=== PATIENT | female | born 1955 | race Caucasian/White ===

== ENCOUNTER → 2020-02-25 13:35 | Outpatient (CLI) | payer OTHER, SELFPAY ==
--- NOTE | ~2020-02-25 | MM_ITS ---
EXAMINATION: MM screening ирина BI w christian HISTORY: Screening mammogram TECHNIQUE: Craniocaudal and mediolateral oblique 3-D tomosynthesis images were obtained and synthetic 2-D images were generated. CAD analysis was submitted and interpreted. COMPARISON: Comparison to multiple prior studies sequentially, with oldest reviewed study dated 04/2015. BREAST PARENCHYMAL COMPOSITION: There are scattered areas of fibroglandular density. FINDINGS: There is no evidence of suspicious mass, calcification, or architectural distortion to sugg est malignancy in either breast. There has been no suspicious interval change. IMPRESSION: 1. No mammographic evidence of malignancy. 2. Recommend routine screening mammography in one year. BI-RADS Category 1: Negative Reviewed, dictated and finalized at location D.
== END ==
PROVIDERS: PCP Internal Medicine; Visit Provider Internal Medicine
DX: Z12.31 Encounter for screening mammogram for malignant neoplasm of breast (principal)
CPT/HCPCS: 77063; 77067

== ENCOUNTER → 2020-12-06 03:07 | Outpatient (CLI) | payer OTHER, SELFPAY ==
[2020-12-06 19:42] LABS: SARS-CoV-2 RNA PCR Negative
== END ==
PROVIDERS: PCP Internal Medicine; Visit Provider Surgery
DX: Z01.812 Encounter for preprocedural laboratory examination (principal); Z20.822 Contact with and (suspected) exposure to COVID-19
CPT/HCPCS: C9803; U0003; U0005

== ENCOUNTER 2020-12-08 11:23 | Outpatient (CLI) | payer OTHER, SELFPAY ==
--- NOTE | 2020-12-08 11:11 | ECG_ITS ---
Measurements Intervals [place] Rate: 79 P: -12 OK: 206 QRS: 15 QRSD: 81 T: 30 QT: 346 QTc: 397 Interpretive Statements SINUS RHYTHM WITH FIRST DEGREE AV BLOCK DELAYED PRECORDIAL R/S TRANSITION BASELINE ARTIFACT- I, II, III, AVR, AVL, AVF ABNORMAL ECG Electronically Signed On 12-08-2020 12:14:48 CDT by Carlos Schreiber D.O.
[2020-12-08 11:50] LABS: INR 1.3
== END 2020-12-08 11:24 | disposition home or self-care (01) ==
PROVIDERS: PCP Internal Medicine; Visit Provider Surgery
DX: C53.9 Malignant neoplasm of cervix uteri, unspecified (principal); E78.2 Mixed hyperlipidemia; I10 Essential (primary) hypertension; Z01.818 Encounter for other preprocedural examination; I44.0 Atrioventricular block, first degree
CPT/HCPCS: 36415; 85610; 85730; 93005

== ENCOUNTER 2020-12-09 01:24 | Day surgery (SDC) | payer OTHER, SELFPAY ==
[2020-12-03 08:23] VITALS: BMI 35.3
--- NOTE | ~2020-12-09 | XR_ITS ---
EXAMINATION: XR fl guide central line place DATE: 12/09/2020 15:06 INDICATION: Port placement. TECHNIQUE: A single intraoperative fluoroscopic view of the chest was obtained. I was not present. Fl uoroscopy exposure time was 45 seconds. COMPARISON: Chest CT 09/24/2017 FINDINGS: There is a left subclavian port with tip in superior vena cava. There is displacement of th e catheter between the clavicle and first rib. IMPRESSION: 1. Port tip in superior vena cava. Displacement of the catheter between the clavicle and first rib is a sign of increased risk of catheter fracture (pinch-off syndrome). Reviewed, dictated and finalized at location A. IMPRESSION: 1. Port tip in superior vena cava. Displacement of the catheter between the cla vicle and first rib is a sign of increased risk of catheter fracture (pinch-off syndrome).
--- NOTE | ~2020-12-09 | XR_ITS ---
EXAMINATION: XR chest port-a-cath/central DATE: 12/09/2020 15:27 INDICATION: Port placement. TECHNIQUE: A single frontal view of the chest was obtained. COMPARISON: Chest 2 views 08/13/2017, chest CT 09/24/2017 FINDINGS: There is mild atelectasis in right mid and lower lung zones. No pleural effusion or pneumot horax. The heart size is normal. There is a left subclavian port with tip in superior vena cava. Ther e is displacement of the catheter between the clavicle and first rib. IMPRESSION: 1. Port tip in the superior vena cava. Displacement of the catheter between the first and second rib is a sign of increased risk of catheter fracture (pinch-off syndrome). Reviewed, dictated and finalized at location A. IMPRESSION: 1. Port tip in the superior vena cava. Displacement of the catheter between the first and second rib is a sign of increased risk of catheter fracture (pinch-o ff syndrome).
[2020-12-09 11:44] VITALS: BP 107/49; PULSE 73; RESP 14; TEMP 38; O2SAT 98
--- NOTE | 2020-12-09 12:02 | PM.IMHP ---
H&P: HPI History of Present Illness Date/Time: 12/09/20 12:02 Pt is a 65 y/o F currently undergoing treatment for metastatic cervical cancer. Pt presents now for port placement. Pt denies any previous central venous catheterization. Pt is right handed. Chief Complaint: cervical cancer Review of Systems Review of Systems: All systems reviewed & are unremarkable except as noted in HPI and below PMFSH Family History Family History Mother Family history of lung cancer Sibling Patient's sister is Social History Social History Smoking status: Never smoker Second hand tobacco smoke exposure: No Alcohol intake: current Substance use: never Substance use type: does not use Gender identity (if verbalized by the patient): Female Spiritual care concerns: No Meds Home Medications and Allergies Home Medications Medication Instructions Recorded Confirmed Type blood sugar diagnostic #100 each 07/23/19 12/07/20 Rx metformin 500 mg tablet 500 mg PO BID #180 tablet 11/17/19 12/09/20 Rx atorvastatin 10 mg tablet 10 mg PO DAILY #90 tablet 01/20/20 12/09/20 Rx atenolol 100 mg tablet 100 mg PO DAILY #90 tablet 02/18/20 12/09/20 Rx paroxetine HCl 30 mg tablet 30 mg PO DAILY #90 tablet 06/02/20 12/09/20 Rx losartan 100 mg tablet 100 mg PO DAILY #90 tablet 11/09/20 12/09/20 Rx trazodone 100 mg PO HS PRN 12/03/20 12/09/20 History loperamide [Imodium] 2 mg PO Q4H PRN 12/07/20 12/09/20 History Adult One Daily Multivitamin 1 tablet PO DAILY 12/09/20 12/09/20 History Allergies Allergy/AdvReac Type Severity Reaction Status Date / Time thimerosal Allergy Intermediate urticaria Verified 12/09/20 11:48 Exam Const: General: cooperative, comfortable, no acute distress and ill appearing Nutritional Appearance: obese Orientation/consciousness: patient oriented x3 Limitations: no limitations Chest: Chest palpation & inspection: normal inspection of the chest Resp: Effort & Inspection: normal respiratory effort Auscultation: clear to auscultation bilaterally Cardio: Rate: regular rate Rhythm: regular rhythm GI: Inspection: normal to inspection GI Palp: Yes Soft to palpation and No Tenderness to palpation present (GI) Assessment and Plan Assessment and plan (1) Cervical cancer: Code(s): C53.9 - Malignant neoplasm of cervix uteri, unspecified Status: Acute Assessment and Plan: will setup for placement of VAD in OR
--- NOTE | 2020-12-09 12:02 | SUR.PREOP ---
dr simon aware of elevated temp 100.4,talked with pt no symptoms,to proceed with procedure.
--- NOTE | 2020-12-09 12:04 | WPDHPUPDATE1 ---
History and Physical Update Update Date/Time: 12/09/20 12:04 History and Physical has been reviewed, including an updated exam of the patient. There are NO changes in the patient's condition. Risks, benefits, and alternatives have been discussed and questions answered. Patient agrees to proceed with procedure.
[2020-12-09 12:24] LABS: Glucose Point of Care 134 (65-105)
[2020-12-09] MEDS: LACTATED RINGERS 1,000 ML 30 ML IV CONT (12:34)
[2020-12-09] MEDS: KETOROLAC 15 MG/ML VIAL (*BKC) IV PUSH (12:36)
[2020-12-09 12:41] LABS: Sodium 127 mmol/L (137-145)
[2020-12-09 12:51] LABS: INR 1.3; Prothrombin Time 16.7 Seconds (11.1-14.7)
--- NOTE | 2020-12-09 12:53 | WPDANESEPPF ---
Anes - Initial Pre Proc Eval Procedure: Operation Date: 12/09/20 13:30 Proposed Procedures p Insertion Purvi Cath - Kymberly Cox MD Date/Time: 12/09/20 12:53 Surgeon: Kymberly Cox MD Pre Op Diagnosis: malignant neoplasm of cervix Patient Data Age: 65 Gender: F Height: 5 ft 6 in Weight: 99.3 kg Allergies Allergy/AdvReac Type Severity Reaction Status Date / Time thimerosal Allergy Intermediate urticaria Verified 12/09/20 11:48 Home Medications Medication Instructions Recorded Confirmed Type blood sugar diagnostic #100 each 07/23/19 12/07/20 Rx metformin 500 mg tablet 500 mg PO BID #180 tablet 11/17/19 12/09/20 Rx atorvastatin 10 mg tablet 10 mg PO DAILY #90 tablet 01/20/20 12/09/20 Rx atenolol 100 mg tablet 100 mg PO DAILY #90 tablet 02/18/20 12/09/20 Rx paroxetine HCl 30 mg tablet 30 mg PO DAILY #90 tablet 06/02/20 12/09/20 Rx losartan 100 mg tablet 100 mg PO DAILY #90 tablet 11/09/20 12/09/20 Rx trazodone 100 mg PO HS PRN 12/03/20 12/09/20 History loperamide [Imodium] 2 mg PO Q4H PRN 12/07/20 12/09/20 History Adult One Daily Multivitamin 1 tablet PO DAILY 12/09/20 12/09/20 History Laboratory Tests 12/09/20 12/09/20 12/09/20 12:08 12:08 12:22 PT 16.7 Seconds H Seconds (11.1-14.7) INR 1.3 Sodium 127 mmol/L L mmol/L (137-145) POC Capillary Glucose 134 mg/dl H mg/dl (65-105) Patient hx anesthesia problems: none Family hx anesthesia problems: none PMFSH Family History Family History Mother Family history of lung cancer Sibling Patient's sister is Social History Social History Smoking status: Never smoker Second hand tobacco smoke exposure: No Alcohol intake: current Substance use: never Substance use type: does not use Gender identity (if verbalized by the patient): Female Spiritual care concerns: No Anes - Eval Final PreProcedure Day of Procedure 12/09/20 12:53 Patient weight: obese Heart: regular rate and rhythm Lungs: clear to auscultation Airway: Mallampati scale class II Neurological: alert and oriented Last oral intake: >/= 8 hours ASA classification: III Emergent: no Anesthetic plan: proceed Anesthesia type and monitoring: general GIVS and standard monitoring Informed Consent: The patient's anesthetic plan and its attendant risks and benefits were discussed with the patient/family/POA. Questions were solicited and answers provided to the satisfaction of the patient/family/POA.
[2020-12-09] MEDS: ceFAZolin 2 GM/D5W 50 ML 2 GM/50 ML BAG IVPB (14:29)
[2020-12-09] MEDS: HEPARIN SODIUM 5,000 UNITS/ML VIAL 5000 UNITS IRRIGATION (15:00)
[2020-12-09] MEDS: BUPIVACAINE/EPINEPHRINE 0.5% 30 ML VIAL INFILTRATE (15:00)
--- NOTE | 2020-12-09 15:11 | PM.PROC ---
Procedure Note - Detailed Date of procedure: 12/09/20 Pre-op diagnosis: malignant neoplasm of cervix Post-op diagnosis: same Procedure performed: placement of left subclavian venous access device under fluroscopic guidance Description of procedure: Patient was brought into the operating room and placed in the supine position. After adequate induction of mac anesthesia, the patient was prepped and draped in normal sterile fashion. Time-out was then done to verify the patient's identity, as well as the procedure being performed. I began by making a small incision in the left chest, I then gained access into the left subclavian vein with an 18 gauge needle. I then placed the guidewire into the vein and confirmed placement via fluoroscopic guidance. I then locally anesthetized the area in the left chest. I then enlarged the incision around the guidewire including making a subcutaneous pocket inferiorly to allow placement of the port itself. I then placed a dilating sheath over the guidewire into the left subclavian vein via sterile Seldinger technique. This was once again done and confirmed via fluoroscopic guidance. I then removed the dilator and the guidewire, now just leaving the sheath in the vein. I then fed the previously flushed catheter into the left subclavian vein under fluoroscopic guidance. At approximately 20 cm, the catheter was noted to be near the atrial caval junction. I then peeled away the sheath, now just leaving the catheter in the vein. I then was able to easily draw and flush from the catheter. The catheter was cut to fit and attached to the port itself. The port was placed into the previously made subcutaneous pocket and sutured in with 0 Ethibond suture. Final fluoroscopic view showed the termination of the catheter at the atrial caval junction with a nice smooth curvature back to the port itself. I was able to gain access to the port with a Mendoza needle and was able to easily draw and flush from the port. I then flushed 4 cc of a final heparin flush into the port. The incision was closed with 3 0 Vicryl suture in the subcutaneous tissue and the skin was closed with 4 O Monocryl subcuticular suture. Dermabond was then placed on wound. The patient tolerated the procedure well and will be sent to the recovery room in stable condition. Implants: L SCV VAD Anesthesia: MAC and local Surgeon: Kymberly Cox MD Estimated blood loss (mL): 5 Drains: No Packing: No Pathology: none sent Complications: No immediate complications Condition: stable Disposition: PACU Findings: placement of L SCV VAD via 1st stick
[2020-12-09 15:14] VITALS: BP 87/47; PULSE 77; RESP 16; O2SAT 97
[2020-12-09 15:31] LABS: Glucose Point of Care 119 (65-105)
--- NOTE | 2020-12-09 15:36 | SUR.PHASEII ---
Notified Dr. Cox of chest xray. Per Dr. Cox patient is able to eat/drink.
[2020-12-09 15:44] VITALS: BP 94/51; PULSE 72; RESP 18; O2SAT 100
[2020-12-09 16:14] VITALS: BP 96/52; PULSE 71; RESP 18
== END 2020-12-09 16:27 | disposition home or self-care (01) ==
PROVIDERS: Anesthesiology; PCP Internal Medicine; Visit Provider Surgery
PROC: (CPT 36561; principal; 2020-12-09 13:30)
DX: C53.9 Malignant neoplasm of cervix uteri, unspecified (principal); Z79.84 Long term (current) use of oral hypoglycemic drugs; E66.9 Obesity, unspecified; Z68.34 Body mass index [BMI] 34.0-34.9, adult
CPT/HCPCS: 36561; 36415; 77001; 82948; 84295; 85610; 85730; 93005; C1788; C9803; J0690; J1644; J1885; J2250; J2370; J2704; J3010; J7030; J7120; U0003; U0005

== ENCOUNTER 2020-12-11 06:20 | Inpatient (IN) | payer OTHER, SELFPAY ==
[2020-12-11] VITALS (28 sets, daily range): BP systolic 93–147; BP diastolic 53–98; PULSE 64–110; RESP 13–22; TEMP 36.1–38.4; O2SAT 88–99; BMI 34.0
--- NOTE | ~2020-12-11 | XR_ITS ---
EXAMINATION: XR nephrostomy tube change DATE: 12/22/2020 10:48 INDICATION: Right hydronephrosis. TECHNIQUE: The procedure including the risks, benefits, and alternatives was discussed with the patie nt. Risks discussed included bleeding and infection. The patient understood the risks and benefits an d agreed to proceed. The patient was confirmed to be receiving appropriate antibiotic coverage. The skin overlying the right kidney was prepped and draped in usual sterile fashion. Anesthetic was admi nistered with 1% lidocaine subcutaneously. The existing right nephrostomy tube was injected with cont rast and then cut and exchanged over a wire for a new 10 Cambodian pigtail catheter under fluoroscopic g uidance. The catheter was stitched to the skin. A dressing was applied. There were no immediate comp lications. FINDINGS: Fluoroscopy images demonstrate the new nephrostomy tube in the renal pelvis. IMPRESSION: 1. Successful fluoroscopy guided right nephrostomy tube exchange. Reviewed, dictated and finalized at location A.
--- NOTE | ~2020-12-11 | CT_ITS ---
EXAMINATION: CT abdomen pelvis wo con DATE: 12/11/2020 18:09 INDICATION: Fever. Right nephrostomy tube. Cervical cancer with metastases. TECHNIQUE: Computed tomography (CT) of the abdomen and pelvis was performed without intravenous contr ast. Automated exposure control and iterative reconstruction technique were employed. Exam dose: 124 1.84 mGy-cm total exam DLP. COMPARISON: 12/28/2009 renal scan FINDINGS: There are multiple bilateral pulmonary masses, measuring up to 3 cm on the left, 1.5 cm on the right, likely due to pulmonary metastases. Suggestion of subtle 12 mm hypoattenuating lesion at the lower tip of the right hepatic lobe. Conside r CT examination with IV contrast material for better definition of any possible visceral mass lesion s. There is splenomegaly, spleen measuring approximately 14 cm vertical dimension. There is an approximately 3.2 cm hypoattenuating lesion of the lateral aspect of the mid right kidney with mean attenuation of 10 Hounsfield units, not evident on 12/2019. Further evaluation by CT exami nation with intravenous contrast material is recommended. A right nephrostomy catheter placed via the lower pole the right kidney. There is interval asymmetric right sided soft tissue mass density in the right uterine cervical area, extending into the right adnexal area, measuring greater than 5 cm transverse, up to 4 cm or greater AP dimension, with adjacent thickening of the right posterior right posterolateral urinary bladder w all. There is likely invasion of the distal right ureter as well, resulting in right ureteral obstruc tion and the need for the existing right nephrostomy catheter. There is prominent asymmetric right pe rinephric fat soft tissue infiltration and asymmetric thickening of the right anterior and posterior pararenal fascia. The findings suggest malignant mass, presumably clinically reported cervical cancer, with suspected b ladder and right ureteral invasion. Mild air collection in the bladder lumen. Minimal colonic diverticulosis; no CT evidence of diverticulitis. Normal appendix. No bowel obstruction, bowel wall thickening, pneumatosis or intraperitoneal free air . Very small fat-containing umbilical hernia. Bilateral fat-containing inguinal hernias. IMPRESSION: Large right cervical and adnexal soft tissue mass with bladder wall in right ureteral in vasion, right ureteral obstruction secondary to right hydronephrosis. Extensive pulmonary metastatic disease Right nephrostomy catheter for obstructed right kidney secondary to malignant right ureteral obstruct ion 12 mm suspected lower right hepatic mass Splenomegaly Reviewed, dictated and finalized at Location A. Fever. Right nephrostomy tube. Cervical cancer with m etastases. Reviewed, dictated and finalized at location A. IMPRESSION: Large right cervical and adnexal soft tissue mass with bladder wal l in right ureteral invasion, right ureteral obstruction secondary to right hyd ronephrosis. Extensive pulmonary metastatic disease Right nephrostomy catheter for obstructed right kidney secondary to malignant r ight ureteral obstruction 12 mm suspected lower right hepatic mass Splenomegaly
--- NOTE | ~2020-12-11 | US_ITS ---
EXAMINATION: US renal BI DATE: 12/18/2020 12:44 INDICATION: Hydronephrosis. Nephrostomy tube dysfunction. TECHNIQUE: Multiple ultrasound grayscale images of the kidneys were obtained. COMPARISON: CT abdomen and pelvis 12/11/2020 FINDINGS: The right kidney measures 11.4 x 6.5 x 8.0 cm. The left kidney measures 12.2 x 6.8 x 7.1 cm. The kidn eys demonstrate normal parenchymal echogenicity. There is a 4.1 cm cyst in right kidney. There is mil d right hydronephrosis. The bladder is normal. IMPRESSION: 1. Mild right hydronephrosis. Reviewed, dictated and finalized at location A.
--- NOTE | ~2020-12-11 | XR_ITS ---
EXAMINATION: XR chest 1V portable DATE: 12/11/2020 07:50 INDICATION: Fever. TECHNIQUE: frontal view of the chest was obtained. COMPARISON: Chest radiograph dated 12/09/2020 FINDINGS: Again seen is a left subclavian central venous port catheter with distal tip at the cephalad superior vena cava. Unchanged undulation in the course of the catheter where it passes between the left first rib and clavicle which as previously noted predispose towards catheter fracture and embolization (pi nch off syndrome). 3 cm nodule at the medial left lower lung zone. Suggestion of a couple additional smaller more subtle nodules in the right lower and left mid lung zones which raises concern for metas tatic disease. No evident pneumonia, pulmonary edema, pleural effusion or pneumothorax. The cardiomed iastinal silhouette is normal. Moderate osteoarthritis at the bilateral glenohumeral joints. There ar e bridging osteophytes at multiple levels in the spine, consistent with diffuse idiopathic skeletal h yperostosis (DISH). IMPRESSION: 1. A few bilateral pulmonary nodules concerning for metastatic disease. If not previously confirmed b y chest CT, this would be recommended. 2. Left subclavian central venous port catheter with tip in the superior vena cava and with undulatio n the course where it passes between the left first rib and clavicle which can predispose towards cat heter fracture and embolization (pinch off syndrome). Reviewed, dictated and finalized at location A. IMPRESSION: 1. A few bilateral pulmonary nodules concerning for metastatic disease. If not previously confirmed by chest CT, this would be recommended. 2. Left subclavian central venous port catheter with tip in the superior vena c litzy and with undulation the course where it passes between the left first rib a nd clavicle which can predispose towards catheter fracture and embolization (pi nch off syndrome).
--- NOTE | ~2020-12-11 | XR_ITS ---
EXAMINATION: XR chest 1V portable DATE: 12/12/2020 05:16 INDICATION: Fever TECHNIQUE: frontal view of the chest was obtained. COMPARISON: Chest radiograph dated 12/11/2020 FINDINGS: Unchanged left subclavian central venous port catheter with distal tip in the cephalad superior vena cava and with undulation in the course of the catheter where it passes between the left first rib and clavicle. Again seen are a few several bilateral pulmonary nodules consistent with metastatic disease. No other airspace opacities, pulmonary edema, pleural effusion or pneumothorax. Heart size is normal. Several convex contour to the AP window suspicious for metastatic mediastinal lymphadenopathy. There are hai dging osteophytes at multiple levels in the spine, consistent with diffuse idiopathic skeletal hypero stosis (DISH). IMPRESSION: 1. Several bilateral pulmonary nodules suspicious for metastatic disease. 2. Slight bulging to the AP window also raising concern for additional metastatic mediastinal lymphad enopathy. Reviewed, dictated and finalized at location A. IMPRESSION: 1. Several bilateral pulmonary nodules suspicious for metastatic disease. 2. Slight bulging to the AP window also raising concern for additional metastat ic mediastinal lymphadenopathy.
--- NOTE | ~2020-12-11 | XR_ITS ---
EXAMINATION: XR sacrum coccyx min 2V, XR lumbar spine 2-3V EXAM DATE: 12/24/2020 15:20 INDICATION: Fall, low back pain . Initial encounter. TECHNIQUE: Lumber spine frontal, lateral, lateral L5-S1 projections for interpretation. Sacral fronta l, inlet, lateral projections. Comparison is made to prior examination from 12/24/2020. FINDINGS: There is a right-sided nephrostomy tube. Sacrum, sacroiliac joints, sacral arcuate lines a re intact. There are no acute fractures identified. Mild lumbar levoscoliosis. Mild diffuse lumbar di sc disease. Moderate arthropathy. Paraspinal soft tissue is unremarkable. IMPRESSION: 1. No acute findings. 2. Lumbar spondylosis. Reviewed, dictated and finalized at location A. IMPRESSION: 1. No acute findings. 2. Lumbar spondylosis.
--- NOTE | 2020-12-11 06:32 | ECG_ITS ---
Measurements Intervals [place] Rate: 67 P: 25 VA: 219 QRS: 27 QRSD: 90 T: 31 QT: 411 QTc: 436 Interpretive Statements SINUS RHYTHM WITH FIRST DEGREE AV BLOCK LOW QRS VOLTAGE IN PRECORDIAL LEADS BASELINE ARTIFACT- II, III, AVF, V1, V3-V6 ABNORMAL ECG Electronically Signed On 12-11-2020 8:47:56 CDT by Carlos Schreiber D.O.
[2020-12-11] MEDS: SODIUM CHLORIDE 0.9% IV 1,000 ML 999 ML IV CONT ×2 (06:41→11:24)
[2020-12-11 07:16] LABS: Basophils Percent Auto 0.9 % (0.2-1.2); Eosinophils Percent Auto 1.4 % (0-4.4); Immature Granulocyte Absolute 0.03 K/mm3 (0.00-0.031); Immature Granulocyte Percent A 1.4 % (0-0.5); Lymphocytes Absolute Auto 0.03 K/mm3 (0.9-3.2); Lymphocytes Percent Auto 1.4 % (18.3-44.2); Mean Corpuscular HGB Conc 32.7 g/dl (32-36); Mean Corpuscular Hemoglobin 28.3 pg (26-34); Mean Corpuscular Volume 86.5 fl (80-100); Mean Platelet Volume 10.4 fl (7.4-10.4); Monocytes Absolute Auto 0.2 K/mm3 (0.1-0.6); Monocytes Percent Auto 11.4 % (2.6-8.5); Neutrophils Absolute Auto 1.8 K/mm3 (1.3-6.7); Neutrophils Percent Auto 83.5 % (45.5-73.1); Platelet Count Result 80 k/mm3 (150-375); Red Blood Count 2.37 M/mm3 (4.2-5.4); Red Cell Distribution Width 13.9 % (11.5-14.5); White Blood Count 2.1 K/mm3 (4.5-10.0)
[2020-12-11 07:24] LABS: Lactic Acid Reflex 0.9 mmol/L (0.7-2.1)
[2020-12-11 07:25] LABS: Add Urine Microscopic? YES; Appearance Urine Turbid (Clear); Bilirubin Urine Negative (Negative); Blood Urine 1+ (Negative); Color Urine Yellow (Yellow); Glucose Urine UA Negative (Negative); Ketones Urine Negative (Negative); Leukocyte Esterase Ur 2+ LEU/UL (Negative); Nitrate Urine Negative (Negative); Protein Urine 2+ mg/dL (Negative); RBC Urine 51-75 /hpf (0-2); Specific Grav Ur 1.025 (1.001-1.035); Urobilinogen Urine Negative mg/dL (<2.0); WBC Clumps Urine Present /HPF; WBC Urine >75 /hpf
[2020-12-11 07:33] LABS: INR 1.6; Partial Thromboplastin Time 34.9 SECONDS (22.3-36.8); Prothrombin Time 19.7 Seconds (11.1-14.7)
[2020-12-11 07:36] LABS: Troponin I < 0.012 ng/mL (0.000-0.034)
[2020-12-11 07:40] LABS: Alanine Aminotransferase 32 U/L (4-35); Albumin Level 3.1 g/dL (3.5-5.1); Alkaline Phosphatase 130 U/L (38-126); Anion Gap 6 mmol/L (8-16); Aspartate Amino Transferase 51 U/L (14-36); Bilirubin,Total 0.4 mg/dL (0.2-1.3); Blood Urea Nitrogen 34 mg/dL (7-17); CRP 25.8 mg/dL (<1.0); Calcium 8.4 mg/dL (8.4-10.2); Carbon Dioxide 27 mmol/L (22-30); Chloride 100 mmol/L (98-107); Estimated CRCL calculation 30 ml/min; Estimated Glomerular Filt Rate 25; Glucose 125 mg/dL (65-105); Lipase 31 U/L (23-300); Potassium 4.1 mmol/L (3.4-5.0); Sodium 133 mmol/L (137-145)
[2020-12-11 07:48] LABS: Hematocrit 20.5 % (37.0-47.0); Hemoglobin 6.7 g/dL (12.0-15.0)
[2020-12-11 07:49] LABS: Anisocytosis 1+ (NORMAL); Hypochromasia 2+ (NORMAL); Microcytosis 2+ (NORMAL); Ovalocytes 1+ (NORMAL); Platelet Estimate Decreased (Adequate)
--- NOTE | 2020-12-11 08:52 | PC.NURSE ---
Pt states I can't get my nose to stop bleeding, RN asks pt to remove mask for assessment. Pt's left nostril showed moderate amount of active bleeding. Nose clip applied, aware.
--- NOTE | 2020-12-11 09:06 | ED.FEVER ---
HPI - Fever General Chief Complaint: Fever Stated Complaint: fever after procedure Time Seen by Provider: 12/11/20 07:30 Source: patient and family Limitations: no limitations History of Present Illness HPI Narrative: Patient 65 years old white female presents to the ED with her , complaining of fever up to 101.4 started 24 hours ago. Currently patient feeling weak. Denies any nausea, vomiting, abdominal pain, chest pain, respiratory symptoms, back pain or any pain. History of cervical cancer diagnosed on October 2020, currently on chemo and radiation therapy. History of blood transfusion for possible urinary tract bleeding, patient received 400 mg of ibuprofen 3 hours prior to arrival to the emergency room. Patient is status post right urostomy 3 weeks ago, left Port-A-Cath placement 3 days ago. Related Data Home Medications Medication Instructions Recorded Confirmed trazodone 100 mg PO HS PRN 12/03/20 12/09/20 loperamide 2 mg PO Q4H PRN 12/07/20 12/09/20 Adult One Daily Multivitamin 1 tablet PO DAILY 12/09/20 12/09/20 Allergies Allergy/AdvReac Type Severity Reaction Status Date / Time thimerosal Allergy Intermediate urticaria Verified 12/09/20 11:48 Review of Systems Review of Systems: Narrative: CONSTITUTIONAL: Denies fever, chills, or sweats. EYES: Denies visual changes, redness, or discharge. ENT: Denies rhinorrhea, congestion, sore throat, or otalgia. CARDIOVASCULAR: Denies chest pain, palpitations, or edema. RESPIRATORY: Denies cough or dyspnea. GASTROINTESTINAL: Denies abdominal pain, nausea, vomiting, or diarrhea. GENITOURINARY: Denies dysuria or hematuria. SKIN: Denies rash or itching. MUSCULOSKELETAL: Denies back pain, joint pain, or myalgia. NEUROLOGIC: Denies headache, numbness, or weakness. PSYCHIATRIC: Denies anxiety or depression. [facility] Family History Family History Mother Family history of lung cancer Sibling Patient's sister is Social History Social History Smoking status: Never smoker Second hand tobacco smoke exposure: No Alcohol intake: current Substance use: never Substance use type: does not use Gender identity (if verbalized by the patient): Female Spiritual care concerns: No Exam Narrative: Exam Narrative: General appearance: Well-developed, well-nourished Skin: Pale skin, left Port-A-Cath in place, the skin is dry and clean, right flank urostomy, no surrounding discharge or abnormalities Head: Normocephalic, nontraumatic Eyes: Clear conjunctiva ENT: Oropharynx normal, ears normal, nose normal Neck: Supple, nontender Chest and respiratory: Airway patent, no respiratory distress, no accessory muscle use Heart: Regular rate/rhythm Abdomen: Soft, nontender, no organomegaly, quiet bowel sounds rectal exam showed yellow stool, guaiac negative Vascular: Normal peripheral pulses, normal capillary refill. Musculoskeletal: Normal range of motion, nontender back Neurologic: Alert and oriented ?3, [employer] is normal as tested, no gross motor deficit Course Course Emergency Course: Stable Reevaluation(s) Reevaluation #1: Patient report left nostril bleed started half an hour ago while in the ED. Currently resolved. Patient reports a history of nosebleed years ago. Jorge A-Synephrine nasal spray ordered Date: 12/11/20 Time: 09:30 Vital Signs Vital signs: Vital Signs Temperature 37.7 C H 12/11/20 06:17 Pulse Rate 74 12/11/20 06:17 Respiratory Rate 22 H 12/11/20 06:17 Blood Pressure 102/58 L 12/11/20 06:17 Pulse Oximetry 92 12/11/20 06:17 Temp
[2020-12-11] MEDS: PHENYLEPHRINE 1% NA SPR (*BKC) 15 ML BTL 1 SPRAY NASAL (09:49)
[2020-12-11] MEDS: SODIUM CHLORIDE 0.9% IV 250 ML 30 ML IV CONT (09:50)
--- NOTE | 2020-12-11 10:21 | PC.NURSE ---
Pt no longer experiencing nose bleed after nasal spray.
--- NOTE | 2020-12-11 12:12 | ADMGEN ---
This patient, Shirley Samaniego, was admitted to IMU Room 213-01 at 1156 on 12/11/2020. Patient/family oriented to hospital policies and general routines including ID bracelet, bed and alarms, visiting hours, pain management, procedures, bathroom and other care routines, personal items, smoking policy, room service/diet, and visiting hours. Information on how to activate the Rapid Response Team has been discussed. Patient/Family are encouraged to report perceived risks to care and to ask questions if they do not understand what they are told or what they should do.
--- NOTE | 2020-12-11 13:13 | PM.IMHP ---
H&P: HPI History of Present Illness Date/Time: 12/11/20 13:13 Chief Complaint: fever Narrative: 65yo female with metastatic cervical cancer, DM and HTN presents to ED with fever. Patient was diagnosed with a pelvic mass after CT scan was performed for pelvic pain the end of September. CT scan showed moderate right hydroureteronephrosis related to pelvic. She also lymphadenopathy as well as 1.7 cm left lower lobe pulmonary nodule. She ultimately had a nephrostomy tube placed on the right a short time later. She was diagnosed with cervical cancer. She was started on radiation treatment that she takes 5 days a week and she has done about 10 treatments out of 28. She is also getting chemotherapy weekly on Wednesdays for 5 treatments. She was supposed to have her 4th treatment 3 days before admission but this was not given because of low hemoglobin (thus her last chemo treatment was 12/01/20). Patient on December 09 had a left subclavian Port-A-Cath placed. Port-A-Cath does show tortuous route between the clavicle on the 1st rib concerning for potential catheter fracture. Since placement patient developed fever that evening and over the next 36 hours. At home her temperature was 101.4?. She was having intermittent chills. No anosmia or dysgeusia. She did receive the Juan David Juan David COVID vaccine on October 29. No dysuria or hematuria. No discharge from the Port-A-Cath. There is no open wounds or cellulitis. No shortness of breath or cough. She is having diarrhea about 4 times a day with stool incontinence but this is been going on for while. She has occasional hard stool. No abdominal pain. She drinks boost once a day. Despite this she has lost about 25 lb since September. She denies any melena or hematochezia. She has been having nausea but no vomiting. No chest pain or palpitations. Colonoscopy was normal in 2011. No history of gastric ulcers. She takes acetaminophen with oxycodone and Motrin for pain and for fever. She has been feeling sad but denies to me that she is feeling suicidal or homicidal. Because of the fever and shaking chills, she presented to the emergency room for evaluation. The emergency room she was hemodynamically stable. She is mildly tachypneic. CRP was 26. Troponin was negative. She was pancytopenic with a hemoglobin 6.7. Lactic acid was normal. Urinalysis was consistent with UTI. The urine was drawn from the right nephrostomy tube bag. Pulmonary nodules concerning for metastatic disease. Again noted is the left subclavian central venous port cath with tip in the superior vena cava with undulating course as it passes between the left 1st rib and the clavicle concerning for catheter fracture. Appropriate cultures were drawn. Patient was treated with appropriate amounts of IV fluids and started on IV antibiotics antibiotics. She was transfused 2 units of packed red blood cells. Spoke with general surgery about possibly using the Port-A-Cath. They recommended having blood cultures drawn from the Port-A-Cath but okay to use if able to draw blood off the Port-A-Cath freely. Discussed with nurse. Review of Systems Review of Systems: All systems reviewed & are unremarkable except as noted in HPI and below PMFSH Past Medical History Medical History (Updated 12/11/20 @ 15:18 by Cody Yu MD) Anxiety Cervical cancer CKD (chronic kidney disease) stage 4, GFR 15-29 ml/min Essential (primary) hypertension Hx of pulmonary embolus Hyperlipidemia Lung metastases Type 2 diabetes mellitus without complications Surgical History Surgical History (Updated 12/11/20 @ 15:15 by Cody Yu MD) History of left knee replacement 2018 History of total right knee replacement 2017 Hx of basal cell carcinoma excision Hx of carpal tunnel repair Hx of colonoscopy Normal in 2011 Hx of rotator cuff surgery Family History Family History Mother F
[2020-12-11 13:18] LABS: Glucose Point of Care 154 (65-105)
[2020-12-11 14:49] LABS: Hematocrit 24.5 % (37.0-47.0); Hemoglobin 8.1 g/dL (12.0-15.0)
[2020-12-11] MEDS: SODIUM CHLORIDE 0.9% IV 250 ML 30 ML (15:11)
[2020-12-11] MEDS: TUBING, BLOOD PLUM PUMP TUBING 1 EACH XX (15:11)
[2020-12-11] MEDS: SODIUM CHLORIDE 0.9% IV 1,000 ML 125 ML IV CONT ×2 (15:12→23:22)
[2020-12-11] MEDS: oxyCODONE HCL (*CRX) 5 MG TAB IR PO ×2 (15:25→19:04)
[2020-12-11] MEDS: oxyCODONE/ACETAMINOPHEN (*CRX) 5-325 MG TABLET 1 TABLET PO ×2 (15:26→19:02)
[2020-12-11] MEDS: CENTRAL LINE FLUSH 10 ML IV PUSH ×2 (15:37→20:20)
[2020-12-11 16:25] LABS: Glucose Point of Care 111 (65-105)
[2020-12-11] MEDS: PANTOPRAZOLE SODIUM IV 40 MG VIAL IV PUSH (17:12)
[2020-12-11 17:39] LABS: Add Urine Microscopic? YES; Appearance Urine Cloudy (Clear); Bacteria Urine 1+ /hpf; Bilirubin Urine Negative (Negative); Blood Urine 3+ (Negative); Color Urine Yellow (Yellow); Glucose Urine UA Negative (Negative); Ketones Urine Negative (Negative); Leukocyte Esterase Ur 3+ LEU/UL (Negative); Mucus Urine Rare /lpf; Nitrate Urine Positive (Negative); Protein Urine 1+ mg/dL (Negative); Specific Grav Ur 1.014 (1.001-1.035); Squamous Epithelial Cell Urine Few /hpf (Few); Urobilinogen Urine Negative mg/dL (<2.0); WBC Urine >75 /hpf
[2020-12-11 20:14] LABS: Glucose Point of Care 97 (65-105)
[2020-12-11 20:30] LABS: Hematocrit 22.7 % (37.0-47.0); Hemoglobin 7.5 g/dL (12.0-15.0)
[2020-12-12] VITALS (19 sets, daily range): BP systolic 115–150; BP diastolic 61–74; PULSE 65–87; RESP 16–20; TEMP 36.4–37.7; O2SAT 90–100
[2020-12-12 03:58] LABS: Basophils Percent Auto 0.7 % (0.2-1.2); Eosinophils Percent Auto 1.4 % (0-4.4); Hematocrit 23.7 % (37.0-47.0); Hemoglobin 7.9 g/dL (12.0-15.0); Immature Granulocyte Absolute 0.02 K/mm3 (0.00-0.031); Immature Granulocyte Percent A 1.4 % (0-0.5); Immature Platelet Fraction Pct 1.1 % (0.9-11.2); Lymphocytes Absolute Auto 0.06 K/mm3 (0.9-3.2); Lymphocytes Percent Auto 4.2 % (18.3-44.2); Mean Corpuscular HGB Conc 33.3 g/dl (32-36); Mean Corpuscular Hemoglobin 28.7 pg (26-34); Mean Corpuscular Volume 86.2 fl (80-100); Mean Platelet Volume 9.5 fl (7.4-10.4); Monocytes Absolute Auto 0.2 K/mm3 (0.1-0.6); Monocytes Percent Auto 14.1 % (2.6-8.5); Neutrophils Absolute Auto 1.1 K/mm3 (1.3-6.7); Neutrophils Percent Auto 78.2 % (45.5-73.1); Platelet Count Result 73 k/mm3 (150-375); Red Blood Count 2.75 M/mm3 (4.2-5.4)
[2020-12-12 04:19] LABS: Hemoglobin A1C 6.9 % (<5.7)
[2020-12-12 04:28] LABS: Albumin Level 2.6 g/dL (3.5-5.1); Anion Gap 5 mmol/L (8-16); Blood Urea Nitrogen 23 mg/dL (7-17); Calcium 7.4 mg/dL (8.4-10.2); Carbon Dioxide 24 mmol/L (22-30); Chloride 105 mmol/L (98-107); Estimated CRCL calculation 45 ml/min; Estimated Glomerular Filt Rate 38; Glucose 120 mg/dL (65-105); Magnesium 1.2 mg/dL (1.6-2.3); Phosphorus 2.7 mg/dL (2.5-4.5); Sodium 134 mmol/L (137-145)
[2020-12-12] MEDS: CENTRAL LINE FLUSH 10 ML IV PUSH ×3 (05:32→21:42)
[2020-12-12 06:18] LABS: IFOB Positive Control Positive; Immunochemical Fecal Occult Bl Negative (N)
[2020-12-12 06:22] LABS: White Blood Count 1.4 K/mm3 (4.5-10.0)
[2020-12-12 06:23] LABS: Hypochromasia 1+ (NORMAL); Ovalocytes 1+ (NORMAL); Platelet Estimate Decreased (Adequate)
[2020-12-12 08:07] LABS: Glucose Point of Care 123 (65-105)
[2020-12-12] MEDS: SODIUM CHLORIDE 0.9% IV 1,000 ML 125 ML IV CONT (08:13)
[2020-12-12] MEDS: PANTOPRAZOLE SODIUM IV 40 MG VIAL IV PUSH (08:14)
[2020-12-12] MEDS: PARoxetine 10 MG TABLET 30 MG PO (08:14)
[2020-12-12] MEDS: MULTIVITAMINS THERAPEUTIC TAB (*BKC) 1 TABLET PO (08:14)
[2020-12-12] MEDS: oxyCODONE/ACETAMINOPHEN (*CRX) 5-325 MG TABLET 1 TABLET PO ×4 (08:15→21:33)
[2020-12-12] MEDS: oxyCODONE HCL (*CRX) 5 MG TAB IR PO ×4 (08:16→21:33)
[2020-12-12 12:42] LABS: Glucose Point of Care 125 (65-105)
--- NOTE | 2020-12-12 14:05 | PCPTNOTE ---
attempted eval this afternoon, pt refused, stated she did not feel up to therapy at this time. Left wheeled walker in her room and instructed her to call nursing to get OOB or go to bathroom. was present with pt. Discussed pt with RN;
--- NOTE | 2020-12-12 14:21 | PCOTNOTE ---
Attempted OT eval this afternoon, pt refused, stated she did not feel up to therapy at this time. Will attempt tomorrow as possible.
--- NOTE | 2020-12-12 15:12 | PM.IMPN ---
Progress Note: A&P Assessment and Plan (1) Sepsis: Code(s): A41.9 - Sepsis, unspecified organism Status: Acute Assessment and Plan: Patient presents with leukopenia, fever and rigors. Etiology most likely from gram negative sepsis from urinary source. Consider also related to the recent port placement. CXR clear making pulmonary etiology less likely (repeat CXR reviewed personally and again showing no concerns for infectious process). BCx NGTD; UCx pending. Port functioning well. Continue Vancomycin and Cefepime. Follow closely (2) Pancytopenia due to antineoplastic chemotherapy: Code(s): D61.810 - Antineoplastic chemotherapy induced pancytopenia; T45.1X5A - Adverse effect of antineoplastic and immunosuppressive drugs, initial encounter Status: Acute Assessment and Plan: Hgb 6.7 on admission. Most likely related to the chemotherapy but Hgb 8.3 three days prior to admission but no evidence of acute blood loss. Hemolysis seems less likely. Patient transfused 2U on 12/11/20. Hgb better at 7.9 today. Stool guaiac negative. Continue Protonix. Monitor HH. WBC 2100 with ANC 1750 on admission but now down to 1400 (1100). This is contributing to her inability to fight infection. Last chemo was 12/01. Will follow. Plt count at 80K. MPV normal to suggest BM suppressive effect. Bony mets? Repeat Plt 73K. Avoid Heparin products except for port. Follow. (3) Urinary tract infection: Qualifiers: Hematuria presence: without hematuria Urinary tract infection type: site unspecified Qualified Code(s): N39.0 - Urinary tract infection, site not specified Code(s): N39.0 - Urinary tract infection, site not specified Status: Acute Assessment and Plan: Complicated UTI with concern that the infection related to the right nephrostomy tube. CT Abd/Pelvis showing right nephrostomy catheter in place with prominent asymmetric right perinephric fat soft tissue infiltration and asymmetric thickening of the right anterior and posterior pararenal fascia. Pyelonephritis? UCx from nephrostomy obtained. UCx from urethra also obtained. UCx pending; BCx NGTD. (4) Cervical cancer: Qualifiers: Malignant neoplasm of cervix location: unspecified location Qualified Code(s): C53.9 - Malignant neoplasm of cervix uteri, unspecified Code(s): C53.9 - Malignant neoplasm of cervix uteri, unspecified Status: Acute Assessment and Plan: Patient with metastatic cervical cancer to the lungs and localized spread with adenopathy. Currently undergoing radiation and chemo therapy treatment. Dr Jernigan consulted. CT A/P showing a large right cervical and adnexal soft tissue mass with bladder wall and right ureteral invasion, extensive pulmonary metastatic disease and suspected lower right hepatic mass. Findings discussed with patient and family (with patient permission). (5) CKD (chronic kidney disease) stage 4, GFR 15-29 ml/min: Code(s): N18.4 - Chronic kidney disease, stage 4 (severe) Status: Acute Assessment and Plan: Baseline Cr unclear with Cr 1.3 in May but 2.2 earlier in November (after nephrostomy tube placed). Cr 2.[address] of the abdomen and pelvis showing no evidence of left kidney obstruction. Cr improved to 1.4 today. Some component of dehydration? Continue IV fluids but decrease rate. (6) Essential (primary) hypertension: Code(s): I10 - Essential (primary) hypertension Status: Acute Assessment and Plan: BP soft at times in the ED. She was treated with IV fluids and given a blood transfusion. BP reviewed on 12/12 Her anti-HTN medications losartan and atenolol currently on hold. Will monitor one more day and if BP remains stable, will resume some of her anti-HTN medications. Follow closely in IMU (7) Type 2 diabetes mellitus without complications: Qualifiers: Diabetes mellitus
[2020-12-12 16:30] LABS: Glucose Point of Care 149 (65-105)
[2020-12-12] MEDS: SODIUM CHLORIDE 0.9% IV 1,000 ML 70 ML IV CONT (17:12)
[2020-12-12 20:17] LABS: Glucose Point of Care 128 (65-105)
[2020-12-12] MEDS: ACETAMINOPHEN 325 MG TABLET 650 MG PO (23:23)
[2020-12-13] VITALS (16 sets, daily range): BP systolic 137–173; BP diastolic 68–77; PULSE 70–84; RESP 14–20; TEMP 36.2–37.6; O2SAT 95–100; BMI 37.2
[2020-12-13] MEDS: oxyCODONE HCL (*CRX) 5 MG TAB IR PO ×5 (03:43→20:27)
[2020-12-13] MEDS: oxyCODONE/ACETAMINOPHEN (*CRX) 5-325 MG TABLET 1 TABLET PO ×5 (03:43→20:27)
[2020-12-13 04:13] LABS: Basophils Percent Auto 0.7 % (0.2-1.2); Hematocrit 22.4 % (37.0-47.0); Hemoglobin 7.5 g/dL (12.0-15.0); Immature Granulocyte Absolute 0.02 K/mm3 (0.00-0.031); Immature Granulocyte Percent A 1.3 % (0-0.5); Immature Platelet Fraction Pct 1.1 % (0.9-11.2); Lymphocytes Absolute Auto 0.08 K/mm3 (0.9-3.2); Lymphocytes Percent Auto 5.3 % (18.3-44.2); Mean Corpuscular HGB Conc 33.5 g/dl (32-36); Mean Corpuscular Hemoglobin 29.2 pg (26-34); Mean Corpuscular Volume 87.2 fl (80-100); Monocytes Absolute Auto 0.2 K/mm3 (0.1-0.6); Monocytes Percent Auto 13.2 % (2.6-8.5); Neutrophils Absolute Auto 1.2 K/mm3 (1.3-6.7); Neutrophils Percent Auto 77.5 % (45.5-73.1); Platelet Count Result 84 k/mm3 (150-375); Red Blood Count 2.57 M/mm3 (4.2-5.4); Red Cell Distribution Width 14.2 % (11.5-14.5)
[2020-12-13 04:45] LABS: Alanine Aminotransferase 22 U/L (4-35); Albumin Level 2.5 g/dL (3.5-5.1); Alkaline Phosphatase 109 U/L (38-126); Anion Gap 4 mmol/L (8-16); Aspartate Amino Transferase 33 U/L (14-36); Bilirubin,Total 0.3 mg/dL (0.2-1.3); Blood Urea Nitrogen 15 mg/dL (7-17); Calcium 7.6 mg/dL (8.4-10.2); Carbon Dioxide 24 mmol/L (22-30); Chloride 106 mmol/L (98-107); Estimated CRCL calculation 56 ml/min; Estimated Glomerular Filt Rate 50; Glucose 112 mg/dL (65-105); Magnesium 1.2 mg/dL (1.6-2.3); Potassium 3.8 mmol/L (3.4-5.0); Sodium 134 mmol/L (137-145)
[2020-12-13 05:42] LABS: White Blood Count 1.5 K/mm3 (4.5-10.0)
[2020-12-13 05:44] LABS: Ovalocytes 1+ (NORMAL); Platelet Estimate Decreased (Adequate)
[2020-12-13] MEDS: CENTRAL LINE FLUSH 10 ML IV PUSH ×2 (07:39→16:29)
[2020-12-13 07:43] LABS: Glucose Point of Care 153 (65-105)
[2020-12-13] MEDS: ONDANSETRON INJ 4 MG/2 ML VIAL IV PUSH (10:14)
[2020-12-13] MEDS: PARoxetine 10 MG TABLET 30 MG PO (10:16)
[2020-12-13] MEDS: ACETAMINOPHEN 325 MG TABLET 650 MG PO (10:16)
[2020-12-13] MEDS: PANTOPRAZOLE SODIUM IV 40 MG VIAL IV PUSH (10:16)
[2020-12-13] MEDS: MULTIVITAMINS THERAPEUTIC TAB (*BKC) 1 TABLET PO (10:16)
[2020-12-13 12:27] LABS: Glucose Point of Care 144 (65-105)
[2020-12-13] MEDS: SODIUM CHLORIDE 0.9% IV 1,000 ML 70 ML IV CONT (12:30)
--- NOTE | 2020-12-13 14:46 | PM.IMPN ---
Progress Note: A&P Assessment and Plan (1) Sepsis: Code(s): A41.9 - Sepsis, unspecified organism Status: Acute Assessment and Plan: Patient presents with leukopenia, fever and rigors. Etiology most likely from gram negative sepsis from urinary source. Consider also related to the recent port placement. CXR clear making pulmonary etiology less likely (repeat CXR reviewed personally and again showing no concerns for infectious process). UCx negative; BCx (1of4) growing gram positive bacilli. Port functioning well. Adjust abx. Follow closely (2) Pancytopenia due to antineoplastic chemotherapy: Code(s): D61.810 - Antineoplastic chemotherapy induced pancytopenia; T45.1X5A - Adverse effect of antineoplastic and immunosuppressive drugs, initial encounter Status: Acute Assessment and Plan: Hgb 6.7 on admission. Most likely related to the chemotherapy but Hgb 8.3 three days prior to admission but no evidence of acute blood loss. Hemolysis seems less likely. Patient transfused 2U on 12/11/20. Hgb stable in the 7 range. Stool guaiac negative. Continue Protonix. Monitor HH. WBC 2100 with ANC 1750 on admission but now stable at 1500 (1162). This is contributing to her inability to fight infection. Last chemo was 12/01. Will follow. Plt count at 80K. MPV normal to suggest BM suppressive effect. Bony mets? Repeat Plt better today at 84K. Avoid Heparin products except for port. Follow. (3) Urinary tract infection: Qualifiers: Hematuria presence: without hematuria Urinary tract infection type: site unspecified Qualified Code(s): N39.0 - Urinary tract infection, site not specified Code(s): N39.0 - Urinary tract infection, site not specified Status: Acute Assessment and Plan: Complicated UTI with concern that the infection is related to the right nephrostomy tube. CT Abd/Pelvis showing right nephrostomy catheter in place with prominent asymmetric right perinephric fat soft tissue infiltration and asymmetric thickening of the right anterior and posterior pararenal fascia. Pyelonephritis? UCx from nephrostomy contaminate specimen. UCx from urethra negative. BCx (1of4) growing gram positive bacilli: either overstained or contaminate. Will change Cefepime to Zosyn and stop Vanco. If contaminate then will plan to be home with Augmentin. (4) Cervical cancer: Qualifiers: Malignant neoplasm of cervix location: unspecified location Qualified Code(s): C53.9 - Malignant neoplasm of cervix uteri, unspecified Code(s): C53.9 - Malignant neoplasm of cervix uteri, unspecified Status: Acute Assessment and Plan: Patient with metastatic cervical cancer to the lungs and localized spread with adenopathy. Currently undergoing radiation and chemo therapy treatment. Dr Jernigan consulted. CT A/P showing a large right cervical and adnexal soft tissue mass with bladder wall and right ureteral invasion, extensive pulmonary metastatic disease and suspected lower right hepatic mass. Findings were discussed with patient and family (with patient permission). Oncology following. (5) CKD (chronic kidney disease) stage 4, GFR 15-29 ml/min: Code(s): N18.4 - Chronic kidney disease, stage 4 (severe) Status: Acute Assessment and Plan: Baseline Cr unclear with Cr 1.3 in May but 2.2 earlier in November (after nephrostomy tube placed). Cr 2.[address] of the abdomen and pelvis showing no evidence of left kidney obstruction. Cr improved to 1.1 today. Some component of dehydration? Stop IV fluids now. (6) Essential (primary) hypertension: Code(s): I10 - Essential (primary) hypertension Status: Acute Assessment and Plan: BP soft at times in the ED. She was treated with IV fluids and given a blood transfusion. BP reviewed on 12/13 Her anti-HTN medications losartan and atenolol currently on hold.
[2020-12-13] MEDS: LOPERAMIDE HCL 2 MG CAPSULE PO (16:26)
[2020-12-13] MEDS: MAGNESIUM SULF 2 GM/WATER 50ML 2 GM/50 ML BAG IVPB (16:26)
[2020-12-13] MEDS: atenoloL 25 MG TABLET PO (16:28)
[2020-12-13 16:40] LABS: Glucose Point of Care 91 (65-105)
--- NOTE | 2020-12-13 17:36 | PDONCCN ---
HPI - Date of Consult Date/Time: 12/13/20 17:36 Requesting Physician: Rafa Yu MD Primary Care Provider: Ben Ceron MD - Consult Narrative Reason for consult: Metastatic cervical cancer. Narrative: Shirley Samaniego is a 65 year old female who initially presented with pelvic pain and urinary incontinence in September of 2020. Ultrasound showed pelvic mass. CT scan was performed that showed right-sided hydronephrosis and 4.3 cm mass in the uterus with pelvic and retroperitoneal lymphadenopathy. CT scan of the chest showed 1.7 cm left lower lobe pulmonary nodule as well as bilateral pulmonary nodule. Patient is right cervical biopsy done in September of 2020 that showed squamous cell carcinoma. Urology was also consulted and a right nephrostomy tube was placed. She was started on weekly chemotherapy with cisplatin on November 18 along with addition therapy on November 18. PET scan was also performed on November 23 that showed bilateral lung but has stasis. Patient now came into the hospital with fevers and chills for last 36 hours after the port was placed. Patient also received Juan David and Juan David COVID vaccine on October 29. She denies any dysuria or hematuria. She denies any abdominal pain. She has lost significant amount of weight since her diagnosis of cervical cancer. On admission she was pancytopenic with hemoglobin of 6.7. Urinalysis was consistent with UTI. She was started on IV antibiotics. Review of Systems - Review of Systems All systems reviewed & are unremarkable except as noted in [facility] Medical History: Medical History (Last Updated 12/11/20 @ 15:18 by Cody Yu MD) Anxiety Cervical cancer CKD (chronic kidney disease) stage 4, GFR 15-29 ml/min Essential (primary) hypertension Hx of pulmonary embolus Hyperlipidemia Lung metastases Type 2 diabetes mellitus without complications Surgical History: Surgical History (Last Updated 12/11/20 @ 15:15 by Cody Yu MD) History of left knee replacement 2018 History of total right knee replacement 2017 Hx of basal cell carcinoma excision Hx of carpal tunnel repair Hx of colonoscopy Normal in 2011 Hx of rotator cuff surgery Family History: Family History (Last Reviewed 12/11/20 @ 12:28 by Chrissie Oglesby RN) Mother Family history of lung cancer Sibling Patient's sister is - Social History Social History: Social History (Last Updated 12/11/20 @ 15:20 by Cody Yu MD) Gender Identity: Gender identity (if verbalized by the patient): Female Alcohol Use: Alcohol intake: never Substance Use: Substance use: never Substance use type: does not use Others: Spiritual care concerns: No Smoking Status: Smoking status: Never smoker Second hand tobacco smoke exposure: No Meds Home Medications Medication Instructions Recorded Confirmed Type blood sugar diagnostic #100 each 07/23/19 12/11/20 Rx metformin 500 mg tablet 500 mg PO BID #180 tablet 11/17/19 12/11/20 Rx atorvastatin 10 mg tablet 10 mg PO DAILY #90 tablet 01/20/20 12/11/20 Rx atenolol 100 mg tablet 100 mg PO DAILY #90 tablet 02/18/20 12/11/20 Rx paroxetine HCl 30 mg tablet 30 mg PO DAILY #90 tablet 06/02/20 12/11/20 Rx losartan 100 mg tablet 100 mg PO DAILY #90 tablet 11/09/20 12/11/20 Rx trazodone 100 mg PO HS PRN 12/03/20 12/11/20 History loperamide 2 mg PO Q4H PRN 12/07/20 12/11/20 History Adult One Daily Multivitamin 1 tablet PO DAILY 12/09/20 12/11/20 History oxycodone-acetaminophen 10 - 325 mg PO Q4H PRN 12/11/20 12/11/20 History Allergies Allergy/AdvReac Type Severity Reaction Status Date / Time thimerosal Allergy Intermediate urticaria Verified 12/09/20 11:48 Results - Labs CBC & Chem 7: 12/13/20 04:02 12/13/20 04:02 Labs: Short CBC 12/13/20 Range/Units 04:02 WBC 1.5 L* (4.5-10.0) K/mm3 Hgb 7.5 L (12.0-15.0) g/d
[2020-12-13 20:19] LABS: Glucose Point of Care 121 (65-105)
[2020-12-14] VITALS (24 sets, daily range): BP systolic 131–159; BP diastolic 59–80; PULSE 63–84; RESP 17–20; TEMP 35.5–37.1; O2SAT 93–100
[2020-12-14] MEDS: oxyCODONE/ACETAMINOPHEN (*CRX) 5-325 MG TABLET 1 TABLET PO ×3 (00:13→12:46)
[2020-12-14] MEDS: oxyCODONE HCL (*CRX) 5 MG TAB IR PO ×3 (00:13→12:47)
[2020-12-14] MEDS: CENTRAL LINE FLUSH 10 ML IV PUSH ×3 (05:17→20:11)
[2020-12-14 05:45] LABS: Eosinophils Percent Auto 3.3 % (0-4.4); Immature Granulocyte Absolute 0.01 K/mm3 (0.00-0.031); Immature Granulocyte Percent A 0.8 % (0-0.5); Lymphocytes Absolute Auto 0.07 K/mm3 (0.9-3.2); Lymphocytes Percent Auto 5.7 % (18.3-44.2); Mean Corpuscular HGB Conc 32.3 g/dl (32-36); Mean Corpuscular Hemoglobin 28.9 pg (26-34); Mean Corpuscular Volume 89.6 fl (80-100); Mean Platelet Volume 9.2 fl (7.4-10.4); Monocytes Absolute Auto 0.1 K/mm3 (0.1-0.6); Monocytes Percent Auto 10.7 % (2.6-8.5); Neutrophils Percent Auto 79.5 % (45.5-73.1); Platelet Count Result 56 k/mm3 (150-375); Red Blood Count 1.73 M/mm3 (4.2-5.4); Red Cell Distribution Width 14.4 % (11.5-14.5)
[2020-12-14 05:57] LABS: Anion Gap 5 mmol/L (8-16); Blood Urea Nitrogen 12 mg/dL (7-17); Calcium 7.6 mg/dL (8.4-10.2); Carbon Dioxide 24 mmol/L (22-30); Chloride 106 mmol/L (98-107); Estimated CRCL calculation 56 ml/min; Estimated Glomerular Filt Rate 50; Glucose 88 mg/dL (65-105); Magnesium 1.6 mg/dL (1.6-2.3); Potassium 3.8 mmol/L (3.4-5.0); Sodium 135 mmol/L (137-145)
[2020-12-14 06:28] LABS: Hematocrit 15.5 % (37.0-47.0); White Blood Count 1.2 K/mm3 (4.5-10.0)
[2020-12-14 06:30] LABS: Anisocytosis 1+ (NORMAL); Hypochromasia 2+ (NORMAL); Microcytosis 1+ (NORMAL); Platelet Estimate Decreased (Adequate); Tear Drop Cells 1+ (NORMAL)
[2020-12-14 06:31] LABS: Ovalocytes 1+ (NORMAL)
[2020-12-14] MEDS: SODIUM CHLORIDE 0.9% IV 250 ML 30 ML IV CONT (07:45)
--- NOTE | 2020-12-14 08:20 | PCOTNOTE ---
The patient treatment was not able to be completed as nursing advised not to see patient at this time due to receiving blood. Will plan to continue treatment per plan of care.
--- NOTE | 2020-12-14 09:04 | PCPTNOTE ---
The patient treatment was not able to be completed on 12-14-2020 due to R.N advise not to see patient at this time due to receiving blood. Will plan to continue treatment per plan of care.
[2020-12-14] MEDS: MULTIVITAMINS THERAPEUTIC TAB (*BKC) 1 TABLET PO (09:55)
[2020-12-14] MEDS: atenoloL 25 MG TABLET PO (09:55)
[2020-12-14] MEDS: PARoxetine 10 MG TABLET 30 MG PO (09:56)
[2020-12-14] MEDS: PANTOPRAZOLE SODIUM IV 40 MG VIAL IV PUSH (09:57)
[2020-12-14] MEDS: ATORVASTATIN 10 MG TABLET PO (09:57)
--- NOTE | 2020-12-14 10:59 | PCDIET ---
Nutrition Follow-Up Complete: Nutrition Diagnosis: Involuntary weight loss related to poor appetite as evidenced by reported 25 pound weight loss x 2-3 months. Nutrition Goal: Patient to consume 50% of meals/supplements or greater and stabilize weight loss. Goal not met. Intakes ranged from 5-15% on 12/13/20. Patient receiving blood transfusion and sipping on orange juice. Tray contains two oranges and two glasses of orange juice. Limited information obtained from patient. reports patient did not care for the Frozen Nutritional Treat (chocolate) but is bringing in Boost and other items from home. States patient is picky . Discussed other options available. Recommend Ensure Clear (240kcal, 8g protein) TID with meals. Patient may also benefit from appetite stimulant if medically appropriate and no improvement in intakes after anemia has resolved. Last recorded weight is 104.6 kg which is stable with last review. Bowel Motility: Liquid stool documented on 12/13/20. Patient on Loperamide, and diarrhea has reportedly been chronic. Labs Reviewed: WBC (1.2), Hgb (5.0), Hct (15.5), Cr (1.1), Na (135), Alb (2.5), Richar Ca (8.8) Meds Noted: Atenolol, Loperamide, Lipitor, MVI, Protonix, Zosyn Additional Notes: 4 units RBC ordered. No documented pressure sores. Will continue to monitor with same goal. Nutrition Monitoring and Evaluation: Follow up in 3 days.
[2020-12-14 12:03] LABS: Glucose Point of Care 102 (65-105)
--- NOTE | 2020-12-14 13:11 | PCPTNOTE ---
The patient treatment was not able to be completed on 12-14-2020 due to R.N advised not to see patient at this time due to receiving blood. Will plan to continue treatment per plan of care.
--- NOTE | 2020-12-14 13:17 | WPDONCPN ---
Progress Note: A/P - Additional Plan Metastatic cervical cancer. Patient is currently on radiation therapy with cisplatin. She will continue radiation therapy treatment as an outpatient after discharge. We will hold chemotherapy with cisplatin due to pancytopenia. Pancytopenia. Patient will receive blood transfusion today. I will start her on Neupogen daily for low ANC. I will also check workup for hemolytic anemia. UTI. Continue antibiotic treatment. We will start her on Neupogen. Right-sided hydronephrosis status post nephrostomy tube placement. Urine looks clear. No evidence of bleeding there. - Time Spent With Patient Total time spent is greater than 50% in coordination of care (as documented) at patient's floor/unit and/or counseling patient: 15 - 25 minutes Subjective Interval history: Metastatic cervical cancer Pancytopenia secondary to chemotherapy Review of Systems - Review of Systems Patient remains quite tired and fatigued. She has been eating poorly due to poor taste. She denies any melena hematochezia. Denies any bleeding. No fevers and chills. Exam Vital signs: Temp Pulse Resp BP Pulse Ox 35.5 C L 71 20 159/72 H 95 12/14/20 12:41 12/14/20 12:41 12/14/20 12:41 12/14/20 12:41 12/14/20 12:41 Narrative: Lungs are clear to auscultation bilaterally Cardiovascular regular rate rhythm no murmurs Abdomen soft nontender nondistended bowel sounds are positive Extremities no edema PN: Objective Data - Labs CBC & Chem 7: 12/14/20 05:19 12/14/20 05:19 Labs: Laboratory Results - last 24 hr 12/11/20 12/13/20 12/13/20 08:03 16:36 20:13 WBC RBC Hgb Hct MCV MCH MCHC RDW Plt Count MPV Immature Gran % (Auto) Neut % (Auto) Lymph % (Auto) Dickens % (Auto) Eos % (Auto) Baso % (Auto) Lymph # (Auto) Dickens # (Auto) Eos # (Auto) Baso # (Auto) Abs Immat Gran (auto) Absolute Neuts (auto) Absolute Nucleated RBC Nucleated RBC % Platelet Estimate % Immature Plt Fraction Hypochromasia Anisocytosis Microcytosis Tear Drop Cells Ovalocytes Sodium Potassium Chloride Carbon Dioxide Anion Gap BUN Creatinine Estim Creat Clear Calc Estimated GFR Glucose POC Capillary Glucose 91 121 H Calcium Magnesium Blood Type A Positive Antibody Screen Negative Crossmatch See Detail 12/14/20 12/14/20 12/14/20 05:19 05:19 12:01 WBC 1.2 L* RBC 1.73 L Hgb 5.0 L* Hct 15.5 L* MCV 89.6 MCH 28.9 MCHC 32.3 RDW 14.4 Plt Count 56 L MPV 9.2 Immature Gran % (Auto) 0.8 H Neut % (Auto) 79.5 H Lymph % (Auto) 5.7 L Dickens % (Auto) 10.7 H Eos % (Auto) 3.3 Baso % (Auto) 0.0 L Lymph # (Auto) 0.07 L Dickens # (Auto) 0.1 Eos # (Auto) 0.0 Baso # (Auto) 0.0 Abs Immat Gran (auto) 0.01 Absolute Neuts (auto) 1.0 L Absolute Nucleated RBC 0.0 Nucleated RBC % 0.0 Platelet Estimate Decreased % Immature Plt Fraction 1.0 Hypochromasia 2+ Anisocytosis 1+ Microcytosis 1+ Tear Drop Cells 1+ Ovalocytes 1+ Sodium 135 L Potassium 3.8 Chloride 106 Carbon Dioxide 24 Anion Gap 5 L BUN 12 Creatinine 1.10 H Estim Creat Clear Calc 56 Estimated GFR 50 L Glucose 88 POC Capillary Glucose 102 Calcium 7.6 L Magnesium 1.6 Blood Type Antibody Screen Crossmatch
--- NOTE | 2020-12-14 13:35 | PCOTNOTE ---
The treatment was not able to be completed as nursing advised not to see patient at this time due to receiving blood. Will plan to continue treatment per plan of care.
[2020-12-14] MEDS: FILGRASTIM-SNDZ 300 MCG/0.5 ML SYRINGE SUB-Q (15:21)
--- NOTE | 2020-12-14 16:22 | PM.IMPN ---
Progress Note: A&P Assessment and Plan (1) Pancytopenia due to antineoplastic chemotherapy: Code(s): D61.810 - Antineoplastic chemotherapy induced pancytopenia; T45.1X5A - Adverse effect of antineoplastic and immunosuppressive drugs, initial encounter Status: Acute (2) Essential (primary) hypertension: Code(s): I10 - Essential (primary) hypertension Status: Acute (3) Sepsis: Code(s): A41.9 - Sepsis, unspecified organism Status: Acute (4) CKD (chronic kidney disease) stage 4, GFR 15-29 ml/min: Code(s): N18.4 - Chronic kidney disease, stage 4 (severe) Status: Acute (5) Type 2 diabetes mellitus without complications: Qualifiers: Diabetes mellitus card player insulin use: without care home use Qualified Code(s): E11.9 - Type 2 diabetes mellitus without complications Code(s): E11.9 - Type 2 diabetes mellitus without complications Status: Acute (6) Hyperlipidemia: Code(s): E78.5 - Hyperlipidemia, unspecified Status: Acute (7) Lung metastases: Qualifiers: Laterality: unspecified laterality Qualified Code(s): C78.00 - Secondary malignant neoplasm of unspecified lung Code(s): C78.00 - Secondary malignant neoplasm of unspecified lung Status: Acute (8) Cervical cancer: Qualifiers: Malignant neoplasm of cervix location: unspecified location Qualified Code(s): C53.9 - Malignant neoplasm of cervix uteri, unspecified Code(s): C53.9 - Malignant neoplasm of cervix uteri, unspecified Status: Acute (9) Urinary tract infection: Qualifiers: Hematuria presence: without hematuria Urinary tract infection type: site unspecified Qualified Code(s): N39.0 - Urinary tract infection, site not specified Code(s): N39.0 - Urinary tract infection, site not specified Status: Acute (10) Thrombocytopenia: Code(s): D69.6 - Thrombocytopenia, unspecified Status: Acute Additional Plan # Sepsis: Patient presents with leukopenia, fever and rigors. Etiology most likely from gram negative sepsis from urinary source. Consider also related to the recent port placement. CXR clear making pulmonary etiology less likely (repeat CXR reviewed personally and again showing no concerns for infectious process). UCx negative; BCx (1of4) growing gram positive bacilli, not yet identified. Port functioning well. Adjust abx. Follow closely # Pancytopenia due to antineoplastic chemotherapy: Code(s): Hgb 6.7 on admission. Most likely related to the chemotherapy but Hgb 8.3 three days prior to admission but no evidence of acute blood loss. Hemolysis seems less likely. Patient transfused 2U on 12/11/20. Hgb stable in the 7 range. Stool guaiac negative. Continue Protonix. Monitor H and H. h and h low at 5, getting two units prbc transfusion. repat h and h and monitor. WBC 2100 with ANC 1750 on admission but now stable at 1500 (1162). This is contributing to her inability to fight infection. Last chemo was 12/01. Will follow. filgastrim orddered per oncology. Plt count at 80K. MPV normal to suggest BM suppressive effect. Bony mets? Repeat Plt better today at 84K. Avoid Heparin products except for port. Follow. lower today. # Urinary tract infection: Complicated UTI with concern that the infection is related to the right nephrostomy tube. CT Abd/Pelvis showing right nephrostomy catheter in place with prominent asymmetric right perinephric fat soft tissue infiltration and asymmetric thickening of the right anterior and posterior pararenal fascia. Pyelonephritis? UCx from nephrostomy contaminate specimen. UCx from urethra negative. BCx (1of4) growing gram positive bacilli: either overstained or contaminate. Will change Cefepime to Zosyn and stop Vanco. If contaminate then will plan to be home with Augmentin. # Metastatic Cervical cancer: Patient with metastatic cervical cancer to the lungs and loca
[2020-12-14 17:00] LABS: Glucose Point of Care 98 (65-105)
[2020-12-14 17:33] LABS: Hematocrit 18.4 % (37.0-47.0); Hemoglobin 6.1 g/dL (12.0-15.0)
[2020-12-14 17:44] LABS: Lactate Dehydrogenase 482 U/L (313-618)
[2020-12-14 18:41] LABS: Iron 42 ug/dL (37-170)
[2020-12-14 18:50] LABS: Percent Iron Saturation 25 % (20-50)
[2020-12-14 18:53] LABS: Vitamin B12 > 1000.0 pg/mL (239-931)
[2020-12-14 20:00] LABS: Glucose Point of Care 103 (65-105)
[2020-12-14 21:51] LABS: Hematocrit 28.3 % (37.0-47.0); Hemoglobin 9.5 g/dL (12.0-15.0)
[2020-12-15] VITALS (13 sets, daily range): BP systolic 108–181; BP diastolic 42–79; PULSE 68–89; RESP 16–22; TEMP 35.6–37.3; O2SAT 95–99
[2020-12-15 04:45] LABS: IFOB Positive Control Positive; Immunochemical Fecal Occult Bl Negative (N)
[2020-12-15] MEDS: CENTRAL LINE FLUSH 10 ML IV PUSH ×3 (05:33→21:55)
[2020-12-15] MEDS: ONDANSETRON INJ 4 MG/2 ML VIAL IV PUSH (05:33)
[2020-12-15] MEDS: PARoxetine 10 MG TABLET 30 MG PO (08:13)
[2020-12-15] MEDS: PANTOPRAZOLE SODIUM IV 40 MG VIAL IV PUSH (08:13)
[2020-12-15] MEDS: MULTIVITAMINS THERAPEUTIC TAB (*BKC) 1 TABLET PO (08:13)
[2020-12-15] MEDS: atenoloL 25 MG TABLET PO (08:14)
[2020-12-15] MEDS: ATORVASTATIN 10 MG TABLET PO (08:14)
[2020-12-15] MEDS: FILGRASTIM-SNDZ 300 MCG/0.5 ML SYRINGE SUB-Q (10:21)
[2020-12-15 10:37] LABS: Hematocrit 28.4 % (37.0-47.0); Hemoglobin 9.6 g/dL (12.0-15.0); Immature Platelet Fraction Pct 1.6 % (0.9-11.2); Mean Corpuscular HGB Conc 33.8 g/dl (32-36); Mean Corpuscular Hemoglobin 29.6 pg (26-34); Mean Corpuscular Volume 87.7 fl (80-100); Mean Platelet Volume 9.3 fl (7.4-10.4); Platelet Count Result 79 k/mm3 (150-375); Red Blood Count 3.24 M/mm3 (4.2-5.4); Red Cell Distribution Width 13.9 % (11.5-14.5); White Blood Count 3.8 K/mm3 (4.5-10.0)
[2020-12-15 10:44] LABS: Alanine Aminotransferase 16 U/L (4-35); Albumin Level 2.6 g/dL (3.5-5.1); Alkaline Phosphatase 106 U/L (38-126); Anion Gap 4 mmol/L (8-16); Aspartate Amino Transferase 24 U/L (14-36); Bilirubin,Total 0.4 mg/dL (0.2-1.3); Blood Urea Nitrogen 11 mg/dL (7-17); Calcium 7.6 mg/dL (8.4-10.2); Carbon Dioxide 27 mmol/L (22-30); Chloride 103 mmol/L (98-107); Estimated CRCL calculation 56 ml/min; Estimated Glomerular Filt Rate 50; Glucose 137 mg/dL (65-105); Potassium 3.6 mmol/L (3.4-5.0); Sodium 134 mmol/L (137-145)
[2020-12-15 11:28] LABS: Atypical Lymphocytes Present; Band Neutrophils Percent 2 % (0-6); Monocytes Absolute Manual 0.53 K/mm3 (0.1-0.90); Monocytes Percent Manual 14 % (3-9); Neutrophils Absolute Manual 2.96 K/mm3 (1.7-7.2); Neutrophils Percent Manual 76 % (46-73); Platelet Estimate Decreased (Adequate); Total Cells Counted 100
[2020-12-15 12:27] LABS: Glucose Point of Care 122 (65-105)
[2020-12-15 12:27] LABS: Glucose Point of Care 106 (65-105)
--- NOTE | 2020-12-15 12:56 | WPDONCPN ---
Progress Note: A/P - Additional Plan Metastatic cervical cancer. Patient will resume radiation therapy treatment was improved from this acute event. Pancytopenia. Hemoglobin has improved. She denies any bleeding. We will transfuse as needed. Continue Neupogen. WBC count has improved. UTI. Patient is on Zosyn. She seems to be feeling better today. Right-sided hydronephrosis status post nephrostomy tube placement. Stable. - Time Spent With Patient Total time spent is greater than 50% in coordination of care (as documented) at patient's floor/unit and/or counseling patient: 25 - 35 minutes Subjective Interval history: Metastatic cervical cancer Pancytopenia secondary to chemotherapy Review of Systems - Review of Systems Patient is more awake and alert. Patient is feeling much better today. Still not eating much. Denies any bleeding including melena hematochezia. No fevers and chills. Exam Vital signs: Adali Mendenhall. Assessment of coma and impaired consciousness. A practical scale. Lancet 1974; 2:81-4. Narrative: Lungs are clear to auscultation bilaterally Cardiovascular regular rate rhythm no murmur Abdomen soft nontender nondistended bowel sounds are positive Extremities no edema PN: Objective Data - Labs CBC & Chem 7: 12/15/20 10:27 12/15/20 10:27 Labs: Laboratory Results - last 24 hr 12/11/20 12/14/20 12/14/20 08:03 16:24 16:31 WBC RBC Hgb Hct MCV MCH MCHC RDW Plt Count MPV Immature Gran % (Auto) Neut % (Auto) Lymph % (Auto) [place] % (Auto) Eos % (Auto) Baso % (Auto) Lymph # (Auto) [place] # (Auto) Eos # (Auto) Baso # (Auto) Abs Immat Gran (auto) Absolute Neuts (auto) Absolute Nucleated RBC Total Counted Neutrophils % (Manual) Band Neutrophils % Lymphocytes % (Manual) Monocytes % (Manual) Nucleated RBC % Abs Neuts (Manual) Abs Lymphs (Manual) Abs Monocytes (Manual) Atypical Lymphocytes Platelet Estimate % Immature Plt Fraction Sodium Potassium Chloride Carbon Dioxide Anion Gap BUN Creatinine Estim Creat Clear Calc Estimated GFR Glucose POC Capillary Glucose 98 Calcium Iron TIBC % Saturation Total Bilirubin AST ALT Alkaline Phosphatase Lactate Dehydrogenase Cancelled Total Protein Albumin Vitamin B12 Stl Occult Blood (IFOB) BALJEET, IgG Interpret BALJEET, Poly Interpret BALJEET, Complement Interp Crossmatch See Detail 12/14/20 12/14/20 12/14/20 16:31 16:31 16:31 WBC RBC Hgb Hct MCV MCH MCHC RDW Plt Count MPV Immature Gran % (Auto) Neut % (Auto) Lymph % (Auto) [place] % (Auto) Eos % (Auto) Baso % (Auto) Lymph # (Auto) [place] # (Auto) Eos # (Auto) Baso # (Auto) Abs Immat Gran (auto) Absolute Neuts (auto) Absolute Nucleated RBC Total Counted Neutrophils % (Manual) Band Neutrophils % Lymphocytes % (Manual) Monocytes % (Manual) Nucleated RBC % Abs Neuts (Manual) Abs Lymphs (Manual) Abs Monocytes (Manual) Atypical Lymphocytes Platelet Estimate % Immature Plt Fraction Sodium Potassium Chloride Carbon Dioxide Anion Gap BUN Creatinine Estim Creat Clear Calc Estimated GFR Glucose POC Capillary Glucose Calcium Iron 42 TIBC 169 L % Saturation 25 Total Bilirubin AST ALT Alkaline Phosphatase Lactate Dehydrogenase 482 Total Protein Albumin Vitamin B12 > 1000.0 H Stl Occult Blood (IFOB) BALJEET, IgG Interpret Not Performed BALJEET, Poly Interpret Negative BALJEET, Complement Interp Not Performed Crossmatch 12/14/20 12/14/20 12/14/20 16:31 19:57 21:42 WBC RBC Hgb 6.1 L* 9.5 L D Hct 18.4 L* 28.3 L MCV MCH MCHC RDW Plt Count MP
--- NOTE | 2020-12-15 13:48 | PM.IMPN ---
Progress Note: A&P Additional Plan # Sepsis: Patient presents with leukopenia, fever and rigors. Etiology most likely from gram negative sepsis from urinary source. Consider also related to the recent port placement. CXR clear making pulmonary etiology less likely (repeat CXR reviewed personally and again showing no concerns for infectious process). UCx negative; BCx (1of4) growing gram positive bacilli, not yet identified. likely a contamination. Port functioning well. Adjust abx. Follow closely # Pancytopenia due to antineoplastic chemotherapy: Code(s): Hgb 6.7 on admission. Most likely related to the chemotherapy but Hgb 8.3 three days prior to admission but no evidence of acute blood loss. Hemolysis seems less likely. Patient transfused 2U on 12/11/20. Hgb stable in the 7 range. Stool guaiac negative. Continue Protonix. Monitor H and H. h and h low at 5, getting two units prbc transfusion. repat h and h and monitor. h and h stable today. WBC 2100 with ANC 1750 on admission but now stable at 1500 (1162). This is contributing to her inability to fight infection. Last chemo was 12/01. Will follow. filgastrim orddered per oncology. wbc count up today. Plt count at 80K. MPV normal to suggest BM suppressive effect. Bony mets? Repeat Plt better today at 84K. Avoid Heparin products except for port. Follow. # Urinary tract infection: Complicated UTI with concern that the infection is related to the right nephrostomy tube. CT Abd/Pelvis showing right nephrostomy catheter in place with prominent asymmetric right perinephric fat soft tissue infiltration and asymmetric thickening of the right anterior and posterior pararenal fascia. Pyelonephritis? UCx from nephrostomy contaminate specimen. UCx from urethra negative. BCx (1of4) growing gram positive bacilli: either overstained or contaminate. Will change Cefepime to Zosyn and stop Vanco. If contaminate then will plan to be home with Augmentin. # Metastatic Cervical cancer: Patient with metastatic cervical cancer to the lungs and localized spread with adenopathy. Currently undergoing radiation and chemo therapy treatment. Dr Jernigan consulted. CT A/P showing a large right cervical and adnexal soft tissue mass with bladder wall and right ureteral invasion, extensive pulmonary metastatic disease and suspected lower right hepatic mass. Oncology following. # CKD (chronic kidney disease) stage 4, GFR 15-29 ml/min: Baseline Cr unclear with Cr 1.3 in May but 2.2 earlier in November (after nephrostomy tube placed). Cr 2.[address] of the abdomen and pelvis showing no evidence of left kidney obstruction. Cr improved to 1.1 Some component of dehydration? Stop IV fluids now. # Essential (primary) hypertension: BP soft at times in the ED. She was treated with IV fluids and given a blood transfusion. BP reviewed on 12/13 Her anti-HTN medications losartan and atenolol currently on hold. BP elevated at times. Will add back Atenolol at lower dose and advance as she tolerates # Type 2 diabetes mellitus without complications: Patient only on Metformin at home. She checks her glucose 1x/week on average. Her A1c 6.9. The patient's blood glucose was reviewed on 12/13 Glucose remains well controlled. Continue AccuCheks covering with sliding scale. Hypoglycemia protocol available as needed. Continue to hold Metformin. # DVT prophylaxis: SCDs in light of the anemia PT/OT to see if not already seeing Subjective Date/time seen: 12/15/20 13:48 Interval history: 65yo female with metastatic cervical cancer, DM and HTN presents to ED with fever. no overnight events, no further fever, no abodminal pain, nasuea, vomitign. no sob, chest pain. Review of Systems Review of Systems: Narrative: - CONSTITUTIONAL: Denies weight loss, fever and chills. - HEENT: Denies changes in vision and hearing - RESPIRATORY: Denies SOB and cough. - CV: Denies palpitations and CP.
[2020-12-15 18:19] LABS: Glucose Point of Care 119 (65-105)
--- NOTE | 2020-12-15 18:33 | PC.NURSE ---
This patient, Shirley Samaniego, was transferred to [facility] on 12/15/20 at 1830. Personal belongings sent with patient. Report given to Jovanny LONDONO. Appropriate documentation sent with patient.
--- NOTE | 2020-12-15 18:35 | PC.NURSE ---
This patient, Shirley Samaniego, was received from [facility] on 12/15/20 at 1835. Patient/family oriented to unit policies and routines
[2020-12-16] VITALS (7 sets, daily range): BP systolic 125–165; BP diastolic 61–77; PULSE 71–86; RESP 18–20; TEMP 36.8–37.4; O2SAT 95–96
[2020-12-16] MEDS: CENTRAL LINE FLUSH 10 ML IV PUSH ×3 (05:26→23:53)
[2020-12-16 06:27] LABS: Hematocrit 29.4 % (37.0-47.0); Hemoglobin 9.7 g/dL (12.0-15.0); Immature Platelet Fraction Pct 2.5 % (0.9-11.2); Mean Corpuscular Volume 87.8 fl (80-100); Mean Platelet Volume 8.8 fl (7.4-10.4); Platelet Count Result 79 k/mm3 (150-375); Red Blood Count 3.35 M/mm3 (4.2-5.4); Red Cell Distribution Width 13.9 % (11.5-14.5); White Blood Count 4.6 K/mm3 (4.5-10.0)
[2020-12-16 06:46] LABS: Alanine Aminotransferase 15 U/L (4-35); Albumin Level 2.7 g/dL (3.5-5.1); Alkaline Phosphatase 125 U/L (38-126); Anion Gap 5 mmol/L (8-16); Aspartate Amino Transferase 28 U/L (14-36); Bilirubin,Total 0.3 mg/dL (0.2-1.3); Blood Urea Nitrogen 11 mg/dL (7-17); Calcium 7.7 mg/dL (8.4-10.2); Carbon Dioxide 27 mmol/L (22-30); Chloride 102 mmol/L (98-107); Estimated CRCL calculation 56 ml/min; Estimated Glomerular Filt Rate 50; Glucose 119 mg/dL (65-105); Potassium 3.5 mmol/L (3.4-5.0); Sodium 134 mmol/L (137-145)
[2020-12-16 07:04] LABS: Band Neutrophils Percent 15 % (0-6); Lymphocytes Absolute Manual 0.36 K/mm3 (1.1-4.5); Monocytes Absolute Manual 0.32 K/mm3 (0.1-0.90); Monocytes Percent Manual 7 % (3-9); Neutrophils Absolute Manual 3.91 K/mm3 (1.7-7.2); Neutrophils Percent Manual 70 % (46-73); Total Cells Counted 100
[2020-12-16 07:06] LABS: Platelet Estimate Decreased (Adequate)
[2020-12-16 07:07] LABS: Ovalocytes 1+ (NORMAL)
[2020-12-16 08:02] LABS: Glucose Point of Care 117 (65-105)
[2020-12-16] MEDS: atenoloL 25 MG TABLET PO ×2 (08:37→12:20)
[2020-12-16] MEDS: ATORVASTATIN 10 MG TABLET PO (08:37)
[2020-12-16] MEDS: MULTIVITAMINS THERAPEUTIC TAB (*BKC) 1 TABLET PO (08:38)
[2020-12-16] MEDS: PANTOPRAZOLE SODIUM IV 40 MG VIAL IV PUSH (08:38)
[2020-12-16] MEDS: PARoxetine 10 MG TABLET 30 MG PO (08:38)
[2020-12-16] MEDS: LOPERAMIDE HCL 2 MG CAPSULE PO (09:07)
[2020-12-16] MEDS: FILGRASTIM-SNDZ 300 MCG/0.5 ML SYRINGE SUB-Q (09:07)
[2020-12-16] MEDS: ONDANSETRON INJ 4 MG/2 ML VIAL IV PUSH (09:07)
--- NOTE | 2020-12-16 09:56 | PCPTNOTE ---
Attempted to see patient for PT this date, however patient refused, stated not today. Attempted to encourage patient to participate, patient continued to refuse.
--- NOTE | 2020-12-16 10:37 | PM.IMPN ---
Progress Note: A&P Additional Plan # Sepsis: Patient presents with leukopenia, fever and rigors. Etiology most likely from urinary source. Consider also related to the recent port placement. CXR clear making pulmonary etiology less likely (repeat CXR reviewed personally and again showing no concerns for infectious process). UCx negative; BCx (1of4) growing gram positive bacilli, identified as Corynebacterium species, likely a contaminant. repeat blood cultrue has been negative. Port functioning well. on zosyn Day 3. will plan to switch to augmentin at home. # Pancytopenia due to antineoplastic chemotherapy: Hgb 6.7 on admission. Most likely related to the chemotherapy but Hgb 8.3 three days prior to admission but no evidence of acute blood loss. Hemolysis seems less likely. Patient transfused 2U on 12/11/20. Hgb stable in the 7 range. Stool guaiac negative. Continue Protonix. Monitor H and H. h and h low at 5, s/p transfusion. h and h remains stable after several transfusions. WBC 2100 with ANC 1750 on admission but now stable at 1500 (1162). This is contributing to her inability to fight infection. Last chemo was 12/01. Will follow. filgastrim orddered per oncology. wbc count normal today. ?hold filgastrim Plt count at 80K. MPV normal to suggest BM suppressive effect. Bony mets? Repeat Plt better and stable now. Avoid Heparin products except for port. Follow. # Urinary tract infection: Complicated UTI with concern that the infection is related to the right nephrostomy tube. CT Abd/Pelvis showing right nephrostomy catheter in place with prominent asymmetric right perinephric fat soft tissue infiltration and asymmetric thickening of the right anterior and posterior pararenal fascia. Pyelonephritis? UCx from nephrostomy contaminate specimen. UCx from urethra negative. BCx (1of4) growing gram positive bacilli: Corynebacterium sps. likely contaminant. Will change Cefepime to Zosyn and stop Vanco. If contaminate then will plan to be home with Augmentin. # Metastatic Cervical cancer: Patient with metastatic cervical cancer to the lungs and localized spread with adenopathy. Currently undergoing radiation and chemo therapy treatment. Dr Jernigan consulted. CT A/P showing a large right cervical and adnexal soft tissue mass with bladder wall and right ureteral invasion, extensive pulmonary metastatic disease and suspected lower right hepatic mass. Oncology following. # CKD (chronic kidney disease) stage 4, GFR 15-29 ml/min: Baseline Cr unclear with Cr 1.3 in May but 2.2 earlier in November (after nephrostomy tube placed). Cr 2.[address] of the abdomen and pelvis showing no evidence of left kidney obstruction. Cr improved to 1.1 Some component of dehydration? Stop IV fluids # Essential (primary) hypertension: BP soft at times in the ED. She was treated with IV fluids and given a blood transfusion. BP reviewed on 12/13 Her anti-HTN medications losartan and atenolol currently on hold. BP elevated at times. Will add back Atenolol at lower dose and advance as she tolerates, BP increasing now. will increas atenolol to 50 mg daily. add losartan 25 mg po daily. # Type 2 diabetes mellitus without complications: Patient only on Metformin at home. She checks her glucose 1x/week on average. Her A1c 6.9. The patient's blood glucose was reviewed on 12/13 Glucose remains well controlled. Continue AccuCheks covering with sliding scale. Hypoglycemia protocol available as needed. Continue to hold Metformin. # DVT prophylaxis: SCDs in light of the anemia # Disposition: PT/OT. progressing well. home soon. Subjective Date/time seen: 12/16/20 10:37 Interval history: 65yo female with metastatic cervical cancer, DM and HTN presents to ED with fever. no overnight events, she is feeling better. stronger as well. worked with therapy this am. some nasuea after she took her pills this am, no fever, chills. no abdominal pain, no
--- NOTE | 2020-12-16 10:38 | PCNFU ---
Nutrition Follow-Up Complete: Involuntary weight loss related to poor appetite as evidenced by reported 25 pound weight loss x 2-3 months. Goal: Patient to consume 50% of meals/supplements or greater and stabilize weight loss. Patient has limited progress towards goal. We will continue current goal. Pt current nutrition is Regular. Last recorded weight is 100.3 kg, down from 104.7 kg on admit. Bowel Motility:+BM reported 12/16 Labs Reviewed:GFR 50,Alb 2.7,Glu 119,Hct 29.4,Hgb 9.7 Meds Noted:Lipitor,Zarxio,Heparin,MVI,NovoLog,Zosyn,Paxil,MVI Additional Notes: Patient seen today nutrition follow up. Nursing states to nausea/diarrhea. Oral Intake has been 25% of meals. diet supplements changed from Ensure Clear to Frozen Nutrition Treat-vanilla. PO intake encouraged. Monitoring: Follow up in 5 days.
[2020-12-16 12:05] LABS: Glucose Point of Care 183 (65-105)
[2020-12-16] MEDS: LOSARTAN POTASSIUM 25 MG TABLET PO (12:20)
[2020-12-16 16:54] LABS: Glucose Point of Care 132 (65-105)
[2020-12-16 21:30] LABS: Glucose Point of Care 106 (65-105)
[2020-12-17] VITALS (9 sets, daily range): BP systolic 123–148; BP diastolic 57–61; PULSE 69–80; RESP 18–20; TEMP 36.4–38.8; O2SAT 93–95
[2020-12-17] MEDS: CENTRAL LINE FLUSH 10 ML IV PUSH ×3 (05:53→20:53)
[2020-12-17 06:04] LABS: Hematocrit 27.9 % (37.0-47.0); Hemoglobin 9.2 g/dL (12.0-15.0); Immature Platelet Fraction Pct 2.2 % (0.9-11.2); Mean Corpuscular Hemoglobin 29.2 pg (26-34); Mean Corpuscular Volume 88.6 fl (80-100); Mean Platelet Volume 10.2 fl (7.4-10.4); Platelet Count Result 79 k/mm3 (150-375); Red Blood Count 3.15 M/mm3 (4.2-5.4); White Blood Count 5.4 K/mm3 (4.5-10.0)
[2020-12-17 06:19] LABS: Anion Gap 3 mmol/L (8-16); Blood Urea Nitrogen 10 mg/dL (7-17); Calcium 7.9 mg/dL (8.4-10.2); Carbon Dioxide 29 mmol/L (22-30); Chloride 101 mmol/L (98-107); Estimated CRCL calculation 50 ml/min; Estimated Glomerular Filt Rate 45; Glucose 100 mg/dL (65-105); Potassium 3.3 mmol/L (3.4-5.0); Sodium 133 mmol/L (137-145)
[2020-12-17 06:54] LABS: Anisocytosis 1+ (NORMAL); Band Neutrophils Percent 9 % (0-6); Lymphocytes Absolute Manual 0.21 K/mm3 (1.1-4.5); Monocytes Percent Manual 2 % (3-9); Neutrophils Absolute Manual 5.07 K/mm3 (1.7-7.2); Neutrophils Percent Manual 85 % (46-73); Ovalocytes 1+ (NORMAL); Platelet Estimate Decreased (Adequate); Total Cells Counted 100
[2020-12-17 08:07] LABS: Glucose Point of Care 105 (65-105)
[2020-12-17] MEDS: POTASSIUM CHLORIDE 20 MEQ TABLET 40 MEQ PO (08:30)
[2020-12-17] MEDS: ATORVASTATIN 10 MG TABLET PO (08:31)
[2020-12-17] MEDS: atenoloL 50 MG TABLET PO (08:31)
[2020-12-17] MEDS: LOSARTAN POTASSIUM 25 MG TABLET PO (08:32)
[2020-12-17] MEDS: PARoxetine 10 MG TABLET 30 MG PO (08:32)
[2020-12-17] MEDS: PANTOPRAZOLE SODIUM IV 40 MG VIAL IV PUSH (08:32)
[2020-12-17] MEDS: MULTIVITAMINS THERAPEUTIC TAB (*BKC) 1 TABLET PO (08:32)
[2020-12-17] MEDS: FILGRASTIM-SNDZ 300 MCG/0.5 ML SYRINGE SUB-Q (09:52)
[2020-12-17 11:58] LABS: Glucose Point of Care 147 (65-105)
[2020-12-17] MEDS: LOPERAMIDE HCL 2 MG CAPSULE PO (13:23)
--- NOTE | 2020-12-17 13:51 | PM.IMPN ---
Progress Note: A&P Assessment and Plan (1) Pancytopenia due to antineoplastic chemotherapy: Code(s): D61.810 - Antineoplastic chemotherapy induced pancytopenia; T45.1X5A - Adverse effect of antineoplastic and immunosuppressive drugs, initial encounter Status: Acute (2) Essential (primary) hypertension: Code(s): I10 - Essential (primary) hypertension Status: Acute (3) Sepsis: Code(s): A41.9 - Sepsis, unspecified organism Status: Acute (4) Lung metastases: Qualifiers: Laterality: unspecified laterality Qualified Code(s): C78.00 - Secondary malignant neoplasm of unspecified lung Code(s): C78.00 - Secondary malignant neoplasm of unspecified lung Status: Acute (5) Cervical cancer: Qualifiers: Malignant neoplasm of cervix location: unspecified location Qualified Code(s): C53.9 - Malignant neoplasm of cervix uteri, unspecified Code(s): C53.9 - Malignant neoplasm of cervix uteri, unspecified Status: Acute (6) Urinary tract infection: Qualifiers: Hematuria presence: without hematuria Urinary tract infection type: site unspecified Qualified Code(s): N39.0 - Urinary tract infection, site not specified Code(s): N39.0 - Urinary tract infection, site not specified Status: Acute Additional Plan # Sepsis: Patient presents with leukopenia, fever and rigors. Etiology most likely from urinary source. Consider also related to the recent port placement. CXR clear making pulmonary etiology less likely (repeat CXR reviewed personally and again showing no concerns for infectious process). UCx negative; BCx (1of4) growing gram positive bacilli, identified as Corynebacterium species, likely a contaminant. repeat blood cultrue has been negative. Port functioning well. on zosyn Day 4. will plan to switch to augmentin at home. # Pancytopenia due to antineoplastic chemotherapy: Hgb 6.7 on admission. Most likely related to the chemotherapy but Hgb 8.3 three days prior to admission but no evidence of acute blood loss. Hemolysis seems less likely. Patient transfused 2U on 12/11/20. Hgb stable in the 7 range. Stool guaiac negative. Continue Protonix. Monitor H and H. h and h low at 5, s/p transfusion. h and h remains stable after several transfusions. WBC 2100 with ANC 1750 on admission but now stable at 1500 (1162). This is contributing to her inability to fight infection. Last chemo was 12/01. Will follow. filgastrim orddered per oncology. wbc count normal today. ?hold filgastrim Plt count at 80K. MPV normal to suggest BM suppressive effect. Bony mets? Repeat Plt better and stable now. Avoid Heparin products except for port. Follow. # Urinary tract infection: Complicated UTI with concern that the infection is related to the right nephrostomy tube. CT Abd/Pelvis showing right nephrostomy catheter in place with prominent asymmetric right perinephric fat soft tissue infiltration and asymmetric thickening of the right anterior and posterior pararenal fascia. Pyelonephritis? UCx from nephrostomy contaminate specimen. UCx from urethra negative. BCx (1of4) growing gram positive bacilli: Corynebacterium sps. likely contaminant. Will change Cefepime to Zosyn and stop Vanco. plan to be home with Augmentin. # Metastatic Cervical cancer: Patient with metastatic cervical cancer to the lungs and localized spread with adenopathy. Currently undergoing radiation and chemo therapy treatment. Dr Jernigan consulted. CT A/P showing a large right cervical and adnexal soft tissue mass with bladder wall and right ureteral invasion, extensive pulmonary metastatic disease and suspected lower right hepatic mass. Oncology following. # CKD (chronic kidney disease) stage 4, GFR 15-29 ml/min: Baseline Cr unclear with Cr 1.3 in May but 2.2 earlier in November (after nephrostomy tube placed). Cr 2.[address] of the abdomen and pelvis showing no kurt
--- NOTE | 2020-12-17 14:47 | PCPTNOTE ---
The PT treatment was unable to be completed today due to patient refusal. Two attempts were made. Will continue per Plan of Care frequency and duration.
[2020-12-17] MEDS: ACETAMINOPHEN 325 MG TABLET 650 MG PO ×2 (15:54→21:45)
[2020-12-17 16:57] LABS: Glucose Point of Care 86 (65-105)
[2020-12-17 21:09] LABS: Glucose Point of Care 121 (65-105)
[2020-12-18] VITALS (11 sets, daily range): BP systolic 114–170; BP diastolic 60–77; PULSE 73–89; RESP 16–18; TEMP 36.6–38.6; O2SAT 94–99
[2020-12-18] MEDS: CENTRAL LINE FLUSH 10 ML IV PUSH ×3 (05:33→21:47)
[2020-12-18] MEDS: ACETAMINOPHEN 325 MG TABLET 650 MG PO ×2 (05:38→21:49)
[2020-12-18 07:49] LABS: Glucose Point of Care 94 (65-105)
[2020-12-18] MEDS: MULTIVITAMINS THERAPEUTIC TAB (*BKC) 1 TABLET PO (10:01)
[2020-12-18] MEDS: PARoxetine 10 MG TABLET 30 MG PO (10:01)
[2020-12-18] MEDS: atenoloL 50 MG TABLET PO (10:01)
[2020-12-18] MEDS: PANTOPRAZOLE SODIUM IV 40 MG VIAL IV PUSH (10:01)
[2020-12-18] MEDS: ATORVASTATIN 10 MG TABLET PO (10:01)
[2020-12-18] MEDS: LOSARTAN POTASSIUM 25 MG TABLET PO (10:02)
[2020-12-18] MEDS: FILGRASTIM-SNDZ 300 MCG/0.5 ML SYRINGE SUB-Q (10:04)
[2020-12-18 11:42] LABS: Glucose Point of Care 125 (65-105)
--- NOTE | 2020-12-18 12:07 | PCOTNOTE ---
Attempted to see patient this am, however patient refused. Pt shook head, rolled eyes, and yelled, Go away! at bedside replied, Come on, Shirley. The doctor was just in and said you need to get up. Just do what she wants you to do. Pt agitated stated, No! replied, You know, You piss me off, Shirley! left room. Pt declined all activity at this time.
--- NOTE | 2020-12-18 12:19 | WPDURCON ---
Assessment and Plan Assessment and plan (1) Cervical cancer: Qualifiers: Malignant neoplasm of cervix location: unspecified location Qualified Code(s): C53.9 - Malignant neoplasm of cervix uteri, unspecified Code(s): C53.9 - Malignant neoplasm of cervix uteri, unspecified Status: Acute Assessment and Plan: Right nephrostomy tube poorly draining either due to displacement verses poorly functioning kidney. Nurse to flush the nephrostomy tube. If he continues to be poor output then I would recommend a nephrostogram by interventional Radiology with replacement of nephrostomy tube if needed. No further urologic intervention at this point time. (2) Overactive bladder: Code(s): N32.81 - Overactive bladder Status: Acute Assessment and Plan: Will check postvoid residual. If residual is minimal will start her on some anticholinergics to see if this helps with her urgency and frequency. Urology Consult Note HPI Date Seen: 12/18/20 Time Seen: 12:19 Requesting Physician: Hieu Joel MD Primary Care Provider: Ben Ceron MD Consult Narrative Reason for consult: Poorly functioning right nephrostomy tube Narrative: Shirley Samaniego is a 65 year old female who unfortunately has metastatic cervical carcinoma. Patient receives her care over at [facility] in [place] she has a right nephrostomy tube which was placed less than 6 weeks ago due to right hydroureter due to compression of the ureter from the cervical cancer/ Lymphadenopathy. Family tells me stent was not able to be placed endoscopically. She thus had the nephrostomy tube placed by interventional Radiology at [facility]. She is now admitted with possible sepsis. She had a recent port placed by General surgery. Her urine culture has been negative growth. Grass to see her as the nephrostomy tube is not draining at this point time. Family tells me that it does drain some but not huge amount. Patient had a recent CT scan which revealed the stent to be in good position but it was draining at that time. She also complains of nocturia times 2-3 with frequency every hour to 2 hours with urgency. Review of Systems Review of Systems: All systems reviewed & are unremarkable except as noted in HPI and below PMFSH Past Medical History Medical History Anxiety Cervical cancer CKD (chronic kidney disease) stage 4, GFR 15-29 ml/min Essential (primary) hypertension Hx of pulmonary embolus Hyperlipidemia Lung metastases Type 2 diabetes mellitus without complications Surgical History Surgical History History of left knee replacement 2018 History of total right knee replacement 2017 Hx of basal cell carcinoma excision Hx of carpal tunnel repair Hx of colonoscopy Normal in 2011 Hx of rotator cuff surgery Family History Family History Mother Family history of lung cancer Sibling Patient's sister is Social History Social History Social History: She lives at home with her . Lifelong nonsmoker. She drinks 3 alcoholic drinks per month. No drug use. They have a dog at home. She is a DNR. She voices understanding with this means. Her is in agreement. Her would be the individual would make medical decisions for her if she is not able. Smoking status: Never smoker Second hand tobacco smoke exposure: No Alcohol intake: never Substance use: never Substance use type: does not use Gender identity (if verbalized by the patient): Female Spiritual care concerns: No Meds Home Medications and Allergies Home Medications Medication Instructions Recorded Confirmed Type blood sugar diagnostic #100 each 1
--- NOTE | 2020-12-18 13:44 | PM.IMPN ---
Progress Note: A&P Assessment and Plan (1) Pancytopenia due to antineoplastic chemotherapy: Code(s): D61.810 - Antineoplastic chemotherapy induced pancytopenia; T45.1X5A - Adverse effect of antineoplastic and immunosuppressive drugs, initial encounter Status: Acute (2) Essential (primary) hypertension: Code(s): I10 - Essential (primary) hypertension Status: Acute (3) Sepsis: Code(s): A41.9 - Sepsis, unspecified organism Status: Acute (4) Lung metastases: Qualifiers: Laterality: unspecified laterality Qualified Code(s): C78.00 - Secondary malignant neoplasm of unspecified lung Code(s): C78.00 - Secondary malignant neoplasm of unspecified lung Status: Acute (5) Cervical cancer: Qualifiers: Malignant neoplasm of cervix location: unspecified location Qualified Code(s): C53.9 - Malignant neoplasm of cervix uteri, unspecified Code(s): C53.9 - Malignant neoplasm of cervix uteri, unspecified Status: Acute (6) Urinary tract infection: Qualifiers: Hematuria presence: without hematuria Urinary tract infection type: site unspecified Qualified Code(s): N39.0 - Urinary tract infection, site not specified Code(s): N39.0 - Urinary tract infection, site not specified Status: Acute Additional Plan # Sepsis: Patient presents with leukopenia, fever and rigors. Etiology most likely from urinary source. Consider also related to the recent port placement. CXR clear making pulmonary etiology less likely (repeat CXR reviewed personally and again showing no concerns for infectious process). UCx negative; BCx (1of4) growing gram positive bacilli, identified as Corynebacterium species, likely a contaminant. repeat blood cultrue has been negative. Port functioning well. on zosyn Day 5. will plan to switch to augmentin at home. she had fever again last night. will panculture. ua recheck and get culture from nephrostomy tube. will check renal US to check on the tube position. will flush the tube to unlodge any blockage in the tubing. also having diarrhea and she is on iv antibiotics. will check for c diff. if positive, will add vancomycin. # Pancytopenia due to antineoplastic chemotherapy: Hgb 6.7 on admission. Most likely related to the chemotherapy but Hgb 8.3 three days prior to admission but no evidence of acute blood loss. Hemolysis seems less likely. Patient transfused 2U on 12/11/20. Hgb stable in the 7 range. Stool guaiac negative. Continue Protonix. Monitor H and H. h and h low at 5, s/p transfusion. h and h remains stable after several transfusions. WBC 2100 with ANC 1750 on admission but now stable at 1500 (1162). This is contributing to her inability to fight infection. Last chemo was 12/01. Will follow. filgastrim orddered per oncology. wbc count normal today. ?hold filgastrim Plt count at 80K. MPV normal to suggest BM suppressive effect. Bony mets? Repeat Plt better and stable now. Avoid Heparin products except for port. Follow. # Urinary tract infection: Complicated UTI with concern that the infection is related to the right nephrostomy tube. CT Abd/Pelvis showing right nephrostomy catheter in place with prominent asymmetric right perinephric fat soft tissue infiltration and asymmetric thickening of the right anterior and posterior pararenal fascia. Pyelonephritis? UCx from nephrostomy contaminate specimen. UCx from urethra negative. BCx (1of4) growing gram positive bacilli: Corynebacterium sps. likely contaminant. Will change Cefepime to Zosyn and stop Vanco. plan to be home with Augmentin. # Metastatic Cervical cancer: Patient with metastatic cervical cancer to the lungs and localized spread with adenopathy. Currently undergoing radiation and chemo therapy treatment. Dr Jernigan consulted. CT A/P showing a large right cervical and adnexal soft tissue mass with bladder wall and right ureteral invasion, extensive pulmon
[2020-12-18 13:54] LABS: Hematocrit 32.1 % (37.0-47.0); Hemoglobin 10.5 g/dL (12.0-15.0); Immature Platelet Fraction Pct 2.1 % (0.9-11.2); Mean Corpuscular HGB Conc 32.7 g/dl (32-36); Mean Corpuscular Hemoglobin 28.8 pg (26-34); Mean Corpuscular Volume 88.2 fl (80-100); Mean Platelet Volume 9.7 fl (7.4-10.4); Platelet Count Result 87 k/mm3 (150-375); Red Blood Count 3.64 M/mm3 (4.2-5.4); Red Cell Distribution Width 13.7 % (11.5-14.5); White Blood Count 4.6 K/mm3 (4.5-10.0)
[2020-12-18 14:54] LABS: Atypical Lymphocytes Present; Band Neutrophils Percent 5 % (0-6); Eosinophils Absolute Manual 0.09 K/mm3 (0.02-0.5); Eosinophils Percent Manual 2 % (0-4); Lymphocytes Absolute Manual 0.27 K/mm3 (1.1-4.5); Metamyelocytes Percent 2 %; Monocytes Absolute Manual 0.32 K/mm3 (0.1-0.90); Monocytes Percent Manual 7 % (3-9); Neutrophils Absolute Manual 3.81 K/mm3 (1.7-7.2); Neutrophils Percent Manual 78 % (46-73); Platelet Estimate Adequate (Adequate); Total Cells Counted 100
[2020-12-18 16:11] LABS: Alanine Aminotransferase 41 U/L (4-35); Albumin Level 3.1 g/dL (3.5-5.1); Alkaline Phosphatase 190 U/L (38-126); Anion Gap 5 mmol/L (8-16); Aspartate Amino Transferase 65 U/L (14-36); Bilirubin,Total 0.3 mg/dL (0.2-1.3); Blood Urea Nitrogen 12 mg/dL (7-17); Calcium 8.3 mg/dL (8.4-10.2); Carbon Dioxide 30 mmol/L (22-30); Chloride 99 mmol/L (98-107); Estimated CRCL calculation 44 ml/min; Estimated Glomerular Filt Rate 38; Glucose 106 mg/dL (65-105); Potassium 3.8 mmol/L (3.4-5.0); Sodium 134 mmol/L (137-145)
[2020-12-18 17:32] LABS: Add Urine Microscopic? YES; Appearance Urine Cloudy (Clear); Bacteria Urine Trace /hpf; Bilirubin Urine Negative (Negative); Blood Urine 2+ (Negative); Color Urine Amber (Yellow); Glucose Urine UA Negative (Negative); Ketones Urine Negative (Negative); Leukocyte Esterase Ur 2+ LEU/UL (NEGATIVE); Mucus Urine Rare /lpf; Nitrate Urine Negative (Negative); Protein Urine 2+ mg/dL (Negative); RBC Urine >75 /hpf (0-2); Specific Grav Ur 1.019 (1.001-1.035); Squamous Epithelial Cell Urine Rare /hpf (Few); Urobilinogen Urine Negative mg/dL (<2.0); WBC Clumps Urine Present /HPF; WBC Urine >75 /hpf (0-3)
[2020-12-18 18:21] LABS: Glucose Point of Care 121 (65-105)
[2020-12-18 21:56] LABS: Glucose Point of Care 144 (65-105)
[2020-12-19 04:38] LABS: Hematocrit 29.3 % (37.0-47.0); Hemoglobin 9.7 g/dL (12.0-15.0); Immature Platelet Fraction Pct 2.5 % (0.9-11.2); Mean Corpuscular HGB Conc 33.1 g/dl (32-36); Mean Corpuscular Hemoglobin 28.9 pg (26-34); Mean Corpuscular Volume 87.2 fl (80-100); Mean Platelet Volume 10.4 fl (7.4-10.4); Platelet Count Result 79 k/mm3 (150-375); Red Blood Count 3.36 M/mm3 (4.2-5.4); Red Cell Distribution Width 13.8 % (11.5-14.5); White Blood Count 5.7 K/mm3 (4.5-10.0)
[2020-12-19 04:46] LABS: Alanine Aminotransferase 28 U/L (4-35); Albumin Level 2.6 g/dL (3.5-5.1); Alkaline Phosphatase 156 U/L (38-126); Anion Gap 3 mmol/L (8-16); Aspartate Amino Transferase 42 U/L (14-36); Bilirubin,Total 0.4 mg/dL (0.2-1.3); Blood Urea Nitrogen 13 mg/dL (7-17); Calcium 7.9 mg/dL (8.4-10.2); Carbon Dioxide 30 mmol/L (22-30); Chloride 102 mmol/L (98-107); Estimated CRCL calculation 51 ml/min; Estimated Glomerular Filt Rate 45; Glucose 123 mg/dL (65-105); Potassium 3.3 mmol/L (3.4-5.0); Sodium 135 mmol/L (137-145)
[2020-12-19 05:26] LABS: Band Neutrophils Percent 2 % (0-6); Hypochromasia 1+ (NORMAL); Lymphocytes Absolute Manual 0.28 K/mm3 (1.1-4.5); Monocytes Absolute Manual 0.39 K/mm3 (0.1-0.90); Monocytes Percent Manual 7 % (3-9); Neutrophils Absolute Manual 5.01 K/mm3 (1.7-7.2); Neutrophils Percent Manual 86 % (46-73); Ovalocytes 1+ (NORMAL); Platelet Estimate Decreased (Adequate); Total Cells Counted 100
[2020-12-19] MEDS: CENTRAL LINE FLUSH 10 ML IV PUSH ×3 (05:53→20:25)
[2020-12-19 06:00] VITALS: BP 150/79; PULSE 65; RESP 16; TEMP 36.6; O2SAT 100
[2020-12-19 07:55] LABS: Glucose Point of Care 115 (65-105)
[2020-12-19 08:00] VITALS: PULSE 86; RESP 16; O2SAT 100
[2020-12-19] MEDS: MULTIVITAMINS THERAPEUTIC TAB (*BKC) 1 TABLET PO (08:58)
[2020-12-19 08:59] VITALS: PULSE 86
[2020-12-19] MEDS: atenoloL 50 MG TABLET PO (08:59)
[2020-12-19] MEDS: ATORVASTATIN 10 MG TABLET PO (08:59)
[2020-12-19] MEDS: PARoxetine 10 MG TABLET 30 MG PO (08:59)
[2020-12-19] MEDS: PANTOPRAZOLE SODIUM IV 40 MG VIAL IV PUSH (08:59)
[2020-12-19] MEDS: FILGRASTIM-SNDZ 300 MCG/0.5 ML SYRINGE SUB-Q (09:03)
[2020-12-19] MEDS: HEPARIN SOD FLUSH 500 UNITS/5 ML SYRINGE IV PUSH (11:21)
[2020-12-19 11:56] LABS: Glucose Point of Care 163 (65-105)
[2020-12-19 12:21] LABS: Add Urine Microscopic? YES; Appearance Urine Cloudy (Clear); Bacteria Urine Trace /hpf; Bilirubin Urine Negative (Negative); Blood Urine 1+ (Negative); Color Urine Amber (Yellow); Glucose Urine UA Negative (Negative); Ketones Urine Negative (Negative); Leukocyte Esterase Ur 3+ LEU/UL (NEGATIVE); Mucus Urine Rare /lpf; Nitrate Urine Negative (Negative); Protein Urine 2+ mg/dL (Negative); Specific Grav Ur 1.025 (1.001-1.035); Squamous Epithelial Cell Urine Rare /hpf (Few); Urobilinogen Urine Negative mg/dL (<2.0); WBC Clumps Urine Present /HPF; WBC Urine >75 /hpf (0-3)
[2020-12-19 13:45] VITALS: BP 123/61; PULSE 65; RESP 16; TEMP 36.9; O2SAT 97
--- NOTE | 2020-12-19 14:46 | PM.IMPN ---
Progress Note: A&P Assessment and Plan (1) Pancytopenia due to antineoplastic chemotherapy: Code(s): D61.810 - Antineoplastic chemotherapy induced pancytopenia; T45.1X5A - Adverse effect of antineoplastic and immunosuppressive drugs, initial encounter Status: Acute (2) Sepsis: Code(s): A41.9 - Sepsis, unspecified organism Status: Acute (3) CKD (chronic kidney disease) stage 4, GFR 15-29 ml/min: Code(s): N18.4 - Chronic kidney disease, stage 4 (severe) Status: Acute (4) Type 2 diabetes mellitus without complications: Qualifiers: Diabetes mellitus assisted insulin use: without assisted use Qualified Code(s): E11.9 - Type 2 diabetes mellitus without complications Code(s): E11.9 - Type 2 diabetes mellitus without complications Status: Acute (5) Hyperlipidemia: Code(s): E78.5 - Hyperlipidemia, unspecified Status: Acute (6) Lung metastases: Qualifiers: Laterality: unspecified laterality Qualified Code(s): C78.00 - Secondary malignant neoplasm of unspecified lung Code(s): C78.00 - Secondary malignant neoplasm of unspecified lung Status: Acute (7) Cervical cancer: Qualifiers: Malignant neoplasm of cervix location: unspecified location Qualified Code(s): C53.9 - Malignant neoplasm of cervix uteri, unspecified Code(s): C53.9 - Malignant neoplasm of cervix uteri, unspecified Status: Acute (8) Leukopenia: Qualifiers: Leukopenia type: unspecified Qualified Code(s): D72.819 - Decreased white blood cell count, unspecified Code(s): D72.819 - Decreased white blood cell count, unspecified Status: Acute (9) Thrombocytopenia: Code(s): D69.6 - Thrombocytopenia, unspecified Status: Acute (10) Complicated UTI (urinary tract infection): Code(s): N39.0 - Urinary tract infection, site not specified Status: Acute (11) Malfunction of nephrostomy tube: Code(s): T83.098A - Other mechanical complication of other urinary catheter, initial encounter Status: Acute Additional Plan # Sepsis: Patient presents with leukopenia, fever and rigors. Etiology most likely from urinary source. Consider also related to the recent port placement. CXR clear making pulmonary etiology less likely (repeat CXR reviewed personally and again showing no concerns for infectious process). UCx negative; BCx (1of4) growing gram positive bacilli, identified as Corynebacterium species, likely a contaminant. repeat blood cultrue has been negative. Port functioning well. on zosyn Day 5. will plan to switch to augmentin at home. she had fever again x 2 days in a row. pancultured. awaiting te culture. urine from npehrostomy tube with thick drainage. sent for culture which is pending. renal US with mild hydronephrosis. flushed afte consulting with urologist and its draining somewhat better today. some loose stools: c diff pending. wbc count within normal llimtis. discusse bev Jernigan. with ongoing fever, will consult Infectious disease. # Pancytopenia due to antineoplastic chemotherapy: Hgb 6.7 on admission. Most likely related to the chemotherapy but Hgb 8.3 three days prior to admission but no evidence of acute blood loss. Hemolysis seems less likely. Patient transfused 2U on 12/11/20. Hgb stable in the 7 range. Stool guaiac negative. Continue Protonix. Monitor H and H. h and h low at 5, s/p transfusion. h and h remains stable after several transfusions. WBC 2100 with ANC 1750 on admission but now stable at 1500 (1162). This is contributing to her inability to fight infection. Last chemo was 12/01. Will follow. filgastrim orddered per oncology. wbc count normalised. filgastrim stopped. Plt count at 80K. MPV normal to suggest BM suppressive effect. Bony mets? Repeat Plt better and stable now. Avoid Heparin products except for port. Follow. # Urinary tract infection: Complicated
[2020-12-19 16:20] LABS: Glucose Point of Care 112 (65-105)
[2020-12-19] MEDS: ONDANSETRON INJ 4 MG/2 ML VIAL IV PUSH (17:12)
[2020-12-19] MEDS: POTASSIUM CHLORIDE 20 MEQ PACKET (FOR LIQUID) 40 MEQ PO (17:12)
[2020-12-19 19:45] LABS: Haptoglobin 528 mg/dL (43-212)
[2020-12-19 21:04] LABS: Glucose Point of Care 152 (65-105)
[2020-12-19 22:00] VITALS: BP 123/54; PULSE 68; RESP 20; TEMP 36.2; O2SAT 96
[2020-12-20] MEDS: CENTRAL LINE FLUSH 10 ML IV PUSH ×3 (05:24→20:18)
[2020-12-20 05:51] LABS: Basophils Absolute Auto 0.1 K/mm3 (0.0-0.1); Basophils Percent Auto 1.1 % (0.2-1.2); Eosinophils Absolute Auto 0.1 K/mm3 (0-0.3); Eosinophils Percent Auto 0.7 % (0-4.4); Hematocrit 27.7 % (37.0-47.0); Hemoglobin 9.1 g/dL (12.0-15.0); Immature Granulocyte Absolute 0.51 K/mm3 (0.00-0.031); Immature Granulocyte Percent A 6.3 % (0-0.5); Immature Platelet Fraction Pct 2.8 % (0.9-11.2); Lymphocytes Absolute Auto 0.62 K/mm3 (0.9-3.2); Lymphocytes Percent Auto 7.7 % (18.3-44.2); Mean Corpuscular HGB Conc 32.9 g/dl (32-36); Mean Corpuscular Hemoglobin 28.7 pg (26-34); Mean Corpuscular Volume 87.4 fl (80-100); Mean Platelet Volume 10.6 fl (7.4-10.4); Monocytes Absolute Auto 0.4 K/mm3 (0.1-0.6); Monocytes Percent Auto 4.9 % (2.6-8.5); Neutrophils Absolute Auto 6.4 K/mm3 (1.3-6.7); Neutrophils Percent Auto 79.3 % (45.5-73.1); Platelet Count Result 87 k/mm3 (150-375); Red Blood Count 3.17 M/mm3 (4.2-5.4); Red Cell Distribution Width 13.7 % (11.5-14.5); White Blood Count 8.1 K/mm3 (4.5-10.0)
[2020-12-20 05:58] LABS: Anion Gap 6 mmol/L (8-16); Blood Urea Nitrogen 14 mg/dL (7-17); Carbon Dioxide 28 mmol/L (22-30); Chloride 98 mmol/L (98-107); Estimated CRCL calculation 51 ml/min; Estimated Glomerular Filt Rate 45; Glucose 108 mg/dL (65-105); Potassium 3.1 mmol/L (3.4-5.0); Sodium 132 mmol/L (137-145)
[2020-12-20 06:00] VITALS: BP 110/58; PULSE 67; RESP 20; TEMP 36.5; O2SAT 98
[2020-12-20] MEDS: PANTOPRAZOLE SODIUM IV 40 MG VIAL IV PUSH (08:16)
[2020-12-20 08:17] VITALS: PULSE 66
[2020-12-20] MEDS: MULTIVITAMINS THERAPEUTIC TAB (*BKC) 1 TABLET PO (08:17)
[2020-12-20] MEDS: atenoloL 50 MG TABLET PO (08:17)
[2020-12-20] MEDS: PARoxetine 10 MG TABLET 30 MG PO (08:18)
[2020-12-20] MEDS: ATORVASTATIN 10 MG TABLET PO (08:19)
[2020-12-20] MEDS: POTASSIUM CHLORIDE 20 MEQ TABLET 40 MEQ PO (09:06)
--- NOTE | 2020-12-20 11:21 | WPDUROPN2 ---
Progress Note: A&P Assessment and Plan (1) Complicated UTI (urinary tract infection): Code(s): N39.0 - Urinary tract infection, site not specified Status: Acute Assessment and Plan: Continue Zosyn, awaiting culture results, tailor antibiotics to culture results. (2) Malfunction of nephrostomy tube: Code(s): T83.098A - Other mechanical complication of other urinary catheter, initial encounter Status: Acute Assessment and Plan: Draining well, ok to irrigate each shift to avoid occlusion. Subjective Subjective Date/Time Seen: 12/20/20 11:21 Patient has a right sided nephrostomy tube which is usually managed by [facility] for extrinsic pressure d/t metastatic cervical cancer. Draining well to gravity, dressing is dry and intact. The urine has been cultured, on Zosyn, but the urine in the nephrostomy bag is milky. Review of Systems Cardiovascular: Cardiovascular: Denies chest pain Respiratory: Respiratory: Reports no additional respiratory complaints Gastrointestinal: Gastrointestinal: Denies abdominal pain, Denies nausea and Denies vomiting Genitourinary: Genitourinary: Denies hematuria, Denies dysuria and Denies flank pain Exam Resp: Effort & Inspection: normal respiratory effort Cardio: Rate: regular rate GI: GI Palp: Yes Soft to palpation and No Tenderness to palpation present (GI) : General: Yes no CVA tenderness and Yes other (nephrostomy tube in place, draining to gravity, milky in appearance. ) Extrem: General: no edema Objective Data Vital Signs Vital Signs: Vital Signs - 24 hr 12/19/20 13:45 12/19/20 22:00 12/20/20 06:00 Temperature 98.5 F 97.1 F L 97.7 F Pulse Rate 65 68 67 Respiratory Rate 16 20 20 Blood Pressure 123/61 123/54 L 110/58 L Pulse Oximetry 97 96 98 12/20/20 08:17 Temperature Pulse Rate 66 Respiratory Rate Blood Pressure Pulse Oximetry Intake/Output Intake/Output: Intake & Output 12/17/20 12/18/20 12/19/20 12/20/20 23:59 23:59 23:59 23:59 Intake Total 1330 1190 1670 740 Output Total 2 45 Balance 1328 1190 1625 740 Meds/Results Medications: Active Medications Generic Name Dose Route Start Last Admin Trade Name Freq PRN Reason Stop Dose Admin Acetaminophen 650 mg 12/12/20 12:46 12/18/20 21:49 Acetaminophen 325 Mg Tablet PO 650 mg Q4H PRN Administration Fever Atenolol 50 mg 12/17/20 09:00 12/20/20 08:17 Atenolol 50 Mg Tablet PO 50 mg DAILY GOPAL Administration Atorvastatin Calcium 10 mg 12/14/20 09:00 12/20/20 08:19 Atorvastatin 10 Mg Tablet PO 10 mg DAILY GOPAL Administration Dextrose 12.5 gm 12/11/20 15:55 Dextrose 50% 25 Gm/50 Ml Syringe IV PUSH PRN PRN Hypoglycemia Protocol Glucagon 1 mg 12/11/20 15:55 Glucagon For Inj 1 Mg Vial IM PRN PRN Hypoglycemia Protocol Glucose 15 gm 12/11/20 15:55 Glucose Oral Gel 15 Gm Of Glucse In 37.5 Gm Tube PO PRN PRN Hypoglycemia Protocol Heparin Sodium (Beef Lung) 50 units 12/12/20 09:00 12/20/20 08:17 Heparin Flush 50 Units/5 Ml Syringe IV PUSH 50 units QAM GOPAL Administration Heparin Sodium (Beef Lung) 50 units 12/11/20 12:54 12/14/20 16:58 Heparin Flush 50 Units/5 Ml Syringe IV PUSH 50 units PRN PRN Administration after intermittent infusion Heparin Sodium (Beef Lung) 50 units 12/11/20 12:54 12/11/20 20:20 Heparin Flush 50 Units/5 Ml Syringe IV PUSH 50 units PRN PRN Administration after blood draws Heparin Sodium (Porcine) 500 units 12/11/20 12:54 12/19/20 11:21 Heparin Sod Flush 500 Units/5 Ml Syringe IV PUSH 500 units PRN PRN Administration see comments below Dextrose 1,000 mls @ 100 mls/hr 12/11/20 15:55 Dextrose 5% 1,000 Ml IVPB PRN PRN Hypoglycemia Protocol Piperacillin/Tazobactam/Dextrose 3.375 gm in 50 mls @ 100 mls/hr 12/13/20 18:00 12/20/20 05:21 Zosyn 3.375 Gm/D5w 50ml Pm IVPB
--- NOTE | 2020-12-20 11:23 | PCNFU ---
Nutrition Follow-Up Complete: Involuntary weight loss related to poor appetite as evidenced by reported 25 pound weight loss x 2-3 months. Goal: Patient to consume 50% of meals/supplements or greater and stabilize weight loss. Patient is progressing towards goal. We will continue current goal. Pt current nutrition is Regular with Frozen Nutritional Treat BID. Last recorded weight is 98.4 kg, down from 104.7 kg on admit. Bowel Motility:+BM reported 12/19, loose stools. Labs Reviewed: Hct 27.7,Hgb 9.1 Meds Noted:Zosyn,Lipitor,Heparin,Cozaar,MVI, Protonix. Additional Notes: Nutrition follow up. Spoke with patient today, she states to eating better over the weekend. Today had cereal/milk and toast. She still as some loose stools. [id number]. Agree with diet orders. Monitoring: Follow up in 5 days.
--- NOTE | 2020-12-20 11:38 | PCOTNOTE ---
Attempted to see patient for OT, patient said No, I was up earlier for about an hour. I can do everything you all want me to do, I just don't want to do it right now. Therapist attempted to educate patient over importance of participating in therapy in order to maintain health and wellness, patient still adamantly refusing. present and also attempted to encourage patient to participate in OT to no avail. Will attempt to see patient this PM.
--- NOTE | 2020-12-20 12:58 | WPDINFPN2 ---
Progress Note: A&P Assessment and Plan (1) Complicated UTI (urinary tract infection): Code(s): N39.0 - Urinary tract infection, site not specified Status: Acute Assessment and Plan: 1. Fever due to complicated UTI 2. Neutropenia resolved 3. Cervical cancer on treatment REC N tube care per Urology. PipTazo #7 / 10 days. Adjust if culture dictates otherwise. Call if other Qs Subjective Date/time seen: 12/20/20 12:58 Objective Data Vital Signs Vital Signs: Vital Signs - 24 hr 12/19/20 13:45 12/19/20 22:00 12/20/20 06:00 Temperature 36.9 C 36.2 C L 36.5 C Pulse Rate 65 68 67 Respiratory Rate 16 20 20 Blood Pressure 123/61 123/54 L 110/58 L Pulse Oximetry 97 96 98 12/20/20 08:17 Temperature Pulse Rate 66 Respiratory Rate Blood Pressure Pulse Oximetry Intake/Output Intake/Output: Intake & Output 12/17/20 12/18/20 12/19/20 12/20/20 23:59 23:59 23:59 23:59 Intake Total 1330 1190 1670 790 Output Total 2 45 Balance 1328 1190 1625 790 Meds/Results Medications: Active Medications Generic Name Dose Route Start Last Admin Trade Name Freq PRN Reason Stop Dose Admin Acetaminophen 650 mg 12/12/20 12:46 12/18/20 21:49 Acetaminophen 325 Mg Tablet PO 650 mg Q4H PRN Administration Fever Atenolol 50 mg 12/17/20 09:00 12/20/20 08:17 Atenolol 50 Mg Tablet PO 50 mg DAILY GOPAL Administration Atorvastatin Calcium 10 mg 12/14/20 09:00 12/20/20 08:19 Atorvastatin 10 Mg Tablet PO 10 mg DAILY GOPAL Administration Dextrose 12.5 gm 12/11/20 15:55 Dextrose 50% 25 Gm/50 Ml Syringe IV PUSH PRN PRN Hypoglycemia Protocol Glucagon 1 mg 12/11/20 15:55 Glucagon For Inj 1 Mg Vial IM PRN PRN Hypoglycemia Protocol Glucose 15 gm 12/11/20 15:55 Glucose Oral Gel 15 Gm Of Glucse In 37.5 Gm Tube PO PRN PRN Hypoglycemia Protocol Heparin Sodium (Beef Lung) 50 units 12/12/20 09:00 12/20/20 08:17 Heparin Flush 50 Units/5 Ml Syringe IV PUSH 50 units QAM GOPAL Administration Heparin Sodium (Beef Lung) 50 units 12/11/20 12:54 12/14/20 16:58 Heparin Flush 50 Units/5 Ml Syringe IV PUSH 50 units PRN PRN Administration after intermittent infusion Heparin Sodium (Beef Lung) 50 units 12/11/20 12:54 12/11/20 20:20 Heparin Flush 50 Units/5 Ml Syringe IV PUSH 50 units PRN PRN Administration after blood draws Heparin Sodium (Porcine) 500 units 12/11/20 12:54 12/19/20 11:21 Heparin Sod Flush 500 Units/5 Ml Syringe IV PUSH 500 units PRN PRN Administration see comments below Dextrose 1,000 mls @ 100 mls/hr 12/11/20 15:55 Dextrose 5% 1,000 Ml IVPB PRN PRN Hypoglycemia Protocol Piperacillin/Tazobactam/Dextrose 3.375 gm in 50 mls @ 100 mls/hr 12/13/20 18:00 12/20/20 12:43 Zosyn 3.375 Gm/D5w 50ml Pm IVPB 100 mls/hr Q6H GOPAL Administration Insulin Aspart 4 - 8 units 12/11/20 17:00 12/20/20 12:50 Insulin Aspart (*Bkc) 100 Units/Ml SUB-Q Not Given TIDWM [facility] Protocol Loperamide HCl 2 mg 12/13/20 15:06 12/17/20 13:23 Loperamide Hcl 2 Mg Capsule PO 2 mg Q4H PRN Administration Diarrhea Losartan Potassium 25 mg 12/16/20 10:50 12/18/20 10:02 Losartan Potassium 25 Mg Tablet PO 25 mg QAM GOPAL Administration Multivitamins Therapeutic 1 tablet 12/12/20 09:00 12/20/20 08:17 Multivitamins Therapeutic Tab (*Bkc) PO 01/11/21 09:01 1 tablet DAILY GOPAL Administration Ondansetron HCl 4 mg 12/11/20 09:38 12/19/20 17:12 Ondansetron Inj 4 Mg/2 Ml Vial IV PUSH 4 mg Q4H PRN Administration Nausea Oxybutynin Chloride 15 mg 12/18/20 09:00 12/20/20 08:16 Oxybutynin Chloride Xl 5 Mg Tab.Er.24 PO 15 mg QAM GOPAL Administration Oxycodone HCl 5 mg 12/11/20 14:35 12/14/20 12:47 Oxycodone Hcl (*Crx) 5 Mg Tab Ir PO 5 mg Q4H PRN Administration Pain (Scale Score 7-10) Oxycodone/Acetamin
[2020-12-20 14:00] VITALS: BP 113/73; PULSE 73; RESP 20; TEMP 36.7; O2SAT 96
--- NOTE | 2020-12-20 14:30 | PM.IMPN ---
Progress Note: A&P Additional Plan # Sepsis: Patient presents with leukopenia, fever and rigors. Etiology most likely from urinary source. Consider also related to the recent port placement. CXR clear making pulmonary etiology less likely (repeat CXR reviewed personally and again showing no concerns for infectious process). UCx negative; BCx (1of4) growing gram positive bacilli, identified as Corynebacterium species, likely a contaminant. repeat blood cultrue has been negative. Port functioning well. on zosyn Day 5. will plan to switch to augmentin at home. she had fever again x 2 days in a row. pancultured. urine from npehrostomy tube with thick drainage. sent for culture which is growing enterococcus and psueudomonas detected. on zosyn already, will add vancomycin today. renal US with mild hydronephrosis. flushed afte consulting with urologist and its draining better. may check renal us to recheck in future. some loose stools: c diff came back negative. wbc count within normal llimtis. discusse bev Jernigan. with ongoing fever, will consult Infectious disease. apprecate ID help. add vancomycin, contineu zosyn. # Pancytopenia due to antineoplastic chemotherapy: Hgb 6.7 on admission. Most likely related to the chemotherapy but Hgb 8.3 three days prior to admission but no evidence of acute blood loss. Hemolysis seems less likely. Patient transfused 2U on 12/11/20. Hgb stable in the 7 range. Stool guaiac negative. Continue Protonix. Monitor H and H. h and h low at 5, s/p transfusion. h and h remains stable after several transfusions. WBC 2100 with ANC 1750 on admission but now stable at 1500 (1162). This is contributing to her inability to fight infection. Last chemo was 12/01. Will follow. filgastrim orddered per oncology. wbc count normalised. filgastrim stopped. Plt count at 80K. MPV normal to suggest BM suppressive effect. Bony mets? Repeat Plt better and stable now. Avoid Heparin products except for port. Follow. # Urinary tract infection: Complicated UTI with concern that the infection is related to the right nephrostomy tube. CT Abd/Pelvis showing right nephrostomy catheter in place with prominent asymmetric right perinephric fat soft tissue infiltration and asymmetric thickening of the right anterior and posterior pararenal fascia. Pyelonephritis? UCx from nephrostomy contaminate specimen. UCx from urethra negative. BCx (1of4) growing gram positive bacilli: Corynebacterium sps. likely contaminant. Will change Cefepime to Zosyn and stop Vanco. plan to be home with Augmentin. now with fever, may need to broaden the coverage, since hemodynamically stable, await culture rporets. ID consultation/ add vancomycin today. # Metastatic Cervical cancer: Patient with metastatic cervical cancer to the lungs and localized spread with adenopathy. Currently undergoing radiation and chemo therapy treatment. Dr Jernigan consulted. CT A/P showing a large right cervical and adnexal soft tissue mass with bladder wall and right ureteral invasion, extensive pulmonary metastatic disease and suspected lower right hepatic mass. Oncology following. # CKD (chronic kidney disease) stage 4, GFR 15-29 ml/min: Baseline Cr unclear with Cr 1.3 in May but 2.2 earlier in November (after nephrostomy tube placed). Cr 2.[address] of the abdomen and pelvis showing no evidence of left kidney obstruction. Cr improved to 1.1 Some component of dehydration? Stop IV fluids # Essential (primary) hypertension: BP soft at times in the ED. She was treated with IV fluids and given a blood transfusion. BP reviewed on 12/13 Her anti-HTN medications losartan and atenolol currently on hold. BP elevated at times. Will add back Atenolol at lower dose and advance as she tolerates, BP increasing now. will increas atenolol to 50 mg daily. add losartan 25 mg po daily. bp better lsoartan held due to increase in Cr after start. better now off. monitor bp. # Typ
[2020-12-20 20:43] LABS: Glucose Point of Care 141 (65-105)
[2020-12-20 21:38] VITALS: BP 126/58; PULSE 71; RESP 20; TEMP 36.7; O2SAT 97
[2020-12-21] MEDS: CENTRAL LINE FLUSH 10 ML IV PUSH ×3 (05:41→21:52)
[2020-12-21 05:50] VITALS: BP 129/67; PULSE 70; RESP 20; TEMP 36.6; O2SAT 96
[2020-12-21 05:55] LABS: Basophils Absolute Auto 0.1 K/mm3 (0.0-0.1); Basophils Percent Auto 0.9 % (0.2-1.2); Eosinophils Absolute Auto 0.1 K/mm3 (0-0.3); Eosinophils Percent Auto 1.2 % (0-4.4); Hematocrit 27.4 % (37.0-47.0); Immature Granulocyte Absolute 0.44 K/mm3 (0.00-0.031); Immature Granulocyte Percent A 7.6 % (0-0.5); Lymphocytes Absolute Auto 0.51 K/mm3 (0.9-3.2); Lymphocytes Percent Auto 8.8 % (18.3-44.2); Mean Corpuscular HGB Conc 32.8 g/dl (32-36); Mean Corpuscular Hemoglobin 28.5 pg (26-34); Mean Corpuscular Volume 86.7 fl (80-100); Mean Platelet Volume 9.1 fl (7.4-10.4); Monocytes Absolute Auto 0.3 K/mm3 (0.1-0.6); Monocytes Percent Auto 5.5 % (2.6-8.5); Neutrophils Absolute Auto 4.4 K/mm3 (1.3-6.7); Platelet Count Result 90 k/mm3 (150-375); Red Blood Count 3.16 M/mm3 (4.2-5.4); Red Cell Distribution Width 13.6 % (11.5-14.5); White Blood Count 5.8 K/mm3 (4.5-10.0)
[2020-12-21 06:03] LABS: Anion Gap 3 mmol/L (8-16); Blood Urea Nitrogen 12 mg/dL (7-17); Calcium 7.9 mg/dL (8.4-10.2); Carbon Dioxide 30 mmol/L (22-30); Chloride 99 mmol/L (98-107); Estimated CRCL calculation 50 ml/min; Estimated Glomerular Filt Rate 45; Glucose 105 mg/dL (65-105); Potassium 3.6 mmol/L (3.4-5.0); Sodium 132 mmol/L (137-145)
[2020-12-21 06:40] LABS: Ovalocytes 1+ (NORMAL); Platelet Estimate Decreased (Adequate)
[2020-12-21 09:58] VITALS: PULSE 70
[2020-12-21] MEDS: ATORVASTATIN 10 MG TABLET PO (09:58)
[2020-12-21] MEDS: atenoloL 50 MG TABLET PO (09:58)
[2020-12-21] MEDS: PARoxetine 10 MG TABLET 30 MG PO (09:59)
[2020-12-21] MEDS: PANTOPRAZOLE SODIUM IV 40 MG VIAL IV PUSH (09:59)
[2020-12-21 10:00] VITALS: BP 127/65; PULSE 77
[2020-12-21 10:03] LABS: Glucose Point of Care 101 (65-105)
[2020-12-21 12:18] LABS: Glucose Point of Care 112 (65-105)
[2020-12-21] MEDS: MULTIVITAMINS THERAPEUTIC TAB (*BKC) 1 TABLET PO (12:20)
[2020-12-21 14:00] VITALS: BP 131/72; PULSE 70; RESP 16; TEMP 37.2; O2SAT 97
--- NOTE | 2020-12-21 15:24 | PM.IMPN ---
Progress Note: A&P Assessment and Plan (1) Sepsis: Code(s): A41.9 - Sepsis, unspecified organism Status: Acute Assessment and Plan: Patient presents with leukopenia, fever and rigors. Etiology most likely from urinary source. CXR clear making pulmonary etiology less likely (repeat CXR reviewed personally and again showing no concerns for infectious process). UCx negative (UCx from the neph tube was contaminate); BCx (1of4) growing Corynebacterium felt to be a contaminate. BCx 12/18 NGTD. UCx 12/18 from nephrostomy tube growing Pseudomonas and Enterococcus. Currently on Zosyn and Vanco. No further fevers and WBC normal. Appreciate ID input. (2) Complicated UTI (urinary tract infection): Code(s): N39.0 - Urinary tract infection, site not specified Status: Acute Assessment and Plan: As above. Patient with purulent output from the right nephrostomy tube. Continue IV abx. (3) Malfunction of nephrostomy tube: Code(s): T83.098A - Other mechanical complication of other urinary catheter, initial encounter Status: Acute Assessment and Plan: Right nephrostomy tube became obstructed but able to flush it clear. Purulent fluid in bag but this. Hopefully this vanda clear in a few days. Discussed with urology about the possibility of changing out the catheter. (4) Pancytopenia due to antineoplastic chemotherapy: Code(s): D61.810 - Antineoplastic chemotherapy induced pancytopenia; T45.1X5A - Adverse effect of antineoplastic and immunosuppressive drugs, initial encounter Status: Acute Assessment and Plan: Hgb 6.7 on admission. Most likely related to the chemotherapy but Hgb 8.3 three days prior to admission and no evidence of acute blood loss. Hemolysis seems less likely. Patient transfused 2U on 12/11/20. Hgb dropped to 5.0 on 12/14 and she received 2 more units. Hgb has been in the 9-10 range since. Stool guaiac negative. Continue Protonix. Monitor HH. WBC 2100 with ANC 1750 on admission but now WBC normal. This is contributing to her inability to fight infection. Last chemo was 12/01. Will follow. Plt count at 80K on admission. Repeat Plt count has been low but stable. Avoid Heparin products except for port. Follow. (5) CKD (chronic kidney disease) stage 4, GFR 15-29 ml/min: Code(s): N18.4 - Chronic kidney disease, stage 4 (severe) Status: Acute Assessment and Plan: Baseline Cr unclear with Cr 1.3 in May but 2.2 earlier in November (after nephrostomy tube placed). Cr 2.[address] of the abdomen and pelvis showing no evidence of left kidney obstruction. Cr improved to 1.1-1.2 and stable. Follow. (6) Type 2 diabetes mellitus without complications: Qualifiers: Diabetes mellitus exterminator helper insulin use: without exterminator helper use Qualified Code(s): E11.9 - Type 2 diabetes mellitus without complications Code(s): E11.9 - Type 2 diabetes mellitus without complications Status: Acute Assessment and Plan: Patient only on Metformin at home. She checks her glucose 1x/week on average. Her A1c 6.9. The patient's blood glucose was reviewed on 12/21 Glucose remains well controlled. Continue AccuCheks covering with sliding scale. Hypoglycemia protocol available as needed. Continue to hold Metformin. (7) Cervical cancer: Qualifiers: Malignant neoplasm of cervix location: unspecified location Qualified Code(s): C53.9 - Malignant neoplasm of cervix uteri, unspecified Code(s): C53.9 - Malignant neoplasm of cervix uteri, unspecified Status: Acute Assessment and Plan: Patient with metastatic cervical cancer to the lungs and localized spread with adenopathy. Currently undergoing radiation and chemo therapy treatment. Dr Jernigan consulted. CT A/P showing a large right cervical and adnexal soft tissue mass with bladder wall and right ureteral invasion, extensiv
[2020-12-21 16:56] LABS: Glucose Point of Care 181 (65-105)
[2020-12-21 22:00] VITALS: BP 120/56; PULSE 76; RESP 20; TEMP 36.8; O2SAT 96
[2020-12-22 05:24] VITALS: BP 113/65; PULSE 73; RESP 20; TEMP 36.4; O2SAT 95
[2020-12-22] MEDS: CENTRAL LINE FLUSH 10 ML IV PUSH ×3 (06:05→21:15)
[2020-12-22 06:31] LABS: Hemoglobin 9.4 g/dL (12.0-15.0); Mean Corpuscular HGB Conc 33.6 g/dl (32-36); Mean Corpuscular Hemoglobin 28.8 pg (26-34); Mean Corpuscular Volume 85.9 fl (80-100); Mean Platelet Volume 9.7 fl (7.4-10.4); Platelet Count Result 85 k/mm3 (150-375); Red Blood Count 3.26 M/mm3 (4.2-5.4); Red Cell Distribution Width 13.7 % (11.5-14.5); White Blood Count 4.9 K/mm3 (4.5-10.0)
[2020-12-22 06:46] LABS: Alanine Aminotransferase 25 U/L (4-35); Albumin Level 2.7 g/dL (3.5-5.1); Alkaline Phosphatase 112 U/L (38-126); Anion Gap 4 mmol/L (8-16); Aspartate Amino Transferase 33 U/L (14-36); Bilirubin,Total 0.2 mg/dL (0.2-1.3); Blood Urea Nitrogen 11 mg/dL (7-17); Calcium 7.5 mg/dL (8.4-10.2); Carbon Dioxide 27 mmol/L (22-30); Chloride 99 mmol/L (98-107); Estimated CRCL calculation 55 ml/min; Estimated Glomerular Filt Rate 50; Glucose 126 mg/dL (65-105); Potassium 3.3 mmol/L (3.4-5.0); Sodium 130 mmol/L (137-145)
[2020-12-22 07:37] LABS: Band Neutrophils Percent 11 % (0-6); Eosinophils Absolute Manual 0.04 K/mm3 (0.02-0.5); Eosinophils Percent Manual 1 % (0-4); Lymphocytes Absolute Manual 0.39 K/mm3 (1.1-4.5); Monocytes Absolute Manual 0.29 K/mm3 (0.1-0.90); Monocytes Percent Manual 6 % (3-9); Neutrophils Absolute Manual 4.16 K/mm3 (1.7-7.2); Neutrophils Percent Manual 74 % (46-73); Nucleated Red Blood Cells 1 %; Total Cells Counted 100
[2020-12-22 07:39] LABS: Anisocytosis 1+ (NORMAL)
[2020-12-22 07:56] LABS: Glucose Point of Care 114 (65-105)
[2020-12-22] MEDS: POTASSIUM CHLORIDE 20 MEQ TABLET PO (08:14)
[2020-12-22 08:15] VITALS: PULSE 70
[2020-12-22] MEDS: PANTOPRAZOLE SODIUM IV 40 MG VIAL IV PUSH (08:15)
[2020-12-22] MEDS: PARoxetine 10 MG TABLET 30 MG PO (08:15)
[2020-12-22] MEDS: atenoloL 50 MG TABLET PO (08:15)
[2020-12-22] MEDS: ATORVASTATIN 10 MG TABLET PO (08:16)
[2020-12-22] MEDS: MULTIVITAMINS THERAPEUTIC TAB (*BKC) 1 TABLET PO (08:16)
[2020-12-22 12:15] LABS: Glucose Point of Care 156 (65-105)
--- NOTE | 2020-12-22 12:24 | WPDUROPN2 ---
Progress Note: A&P Assessment and Plan (1) Malfunction of nephrostomy tube: Code(s): T83.098A - Other mechanical complication of other urinary catheter, initial encounter Status: Acute Assessment and Plan: Nephrostomy tube is draining well without problem. At the request of the patient and family, she wants to have it exchanged by IR while admitted. She is scheduled to have this done today and will follow up with Urology at [facility]. NO further evaluation needed. Subjective Subjective Date/Time Seen: 12/22/20 12:24 Patient has a right sided nephrostomy tube which is usually managed by [facility] for extrinsic pressure d/t metastatic cervical cancer. Draining well to gravity, dressing is dry and intact. The urine has been cultured and was negative on 12/19/2020 patient is on Zosyn, but the urine in the nephrostomy bag remains milky in appearance. Review of Systems Cardiovascular: Cardiovascular: Denies chest pain Respiratory: Respiratory: Reports no additional respiratory complaints Gastrointestinal: Gastrointestinal: Denies abdominal pain, Denies nausea and Denies vomiting Genitourinary: Genitourinary: Denies hematuria, Denies menorrhagia, Denies dysuria, Denies pelvic pain and Denies flank pain Exam Resp: Effort & Inspection: normal respiratory effort Cardio: Rate: regular rate GI: GI Palp: Yes Soft to palpation and No Tenderness to palpation present (GI) : General: Yes no CVA tenderness and Yes other (right nephrostomy tube is in place and draining well to gravity, milky) Extrem: General: no edema Objective Data Vital Signs Vital Signs: Vital Signs - 24 hr 12/21/20 14:00 12/21/20 22:00 12/22/20 05:24 Temperature 99.0 F 98.2 F 97.6 F Pulse Rate 70 76 73 Respiratory Rate 16 20 20 Blood Pressure 131/72 120/56 L 113/65 Pulse Oximetry 97 96 95 12/22/20 08:15 Temperature Pulse Rate 70 Respiratory Rate Blood Pressure Pulse Oximetry Intake/Output Intake/Output: Intake & Output 12/19/20 12/20/20 12/21/20 12/22/20 23:59 23:59 23:59 23:59 Intake Total 1670 2410 2210 320 Output Total 45 Balance 1625 2410 2210 320 Meds/Results Medications: Active Medications Generic Name Dose Route Start Last Admin Trade Name Freq PRN Reason Stop Dose Admin Acetaminophen 650 mg 12/12/20 12:46 12/18/20 21:49 Acetaminophen 325 Mg Tablet PO 650 mg Q4H PRN Administration Fever Atenolol 50 mg 12/17/20 09:00 12/22/20 08:15 Atenolol 50 Mg Tablet PO 50 mg DAILY GOPAL Administration Atorvastatin Calcium 10 mg 12/14/20 09:00 12/22/20 08:16 Atorvastatin 10 Mg Tablet PO 10 mg DAILY GOPAL Administration Dextrose 12.5 gm 12/11/20 15:55 Dextrose 50% 25 Gm/50 Ml Syringe IV PUSH PRN PRN Hypoglycemia Protocol Glucagon 1 mg 12/11/20 15:55 Glucagon For Inj 1 Mg Vial IM PRN PRN Hypoglycemia Protocol Glucose 15 gm 12/11/20 15:55 Glucose Oral Gel 15 Gm Of Glucse In 37.5 Gm Tube PO PRN PRN Hypoglycemia Protocol Heparin Sodium (Beef Lung) 50 units 12/12/20 09:00 12/22/20 11:56 Heparin Flush 50 Units/5 Ml Syringe IV PUSH 50 units QAM GOPAL Administration Heparin Sodium (Beef Lung) 50 units 12/11/20 12:54 12/14/20 16:58 Heparin Flush 50 Units/5 Ml Syringe IV PUSH 50 units PRN PRN Administration after intermittent infusion Heparin Sodium (Beef Lung) 50 units 12/11/20 12:54 12/11/20 20:20 Heparin Flush 50 Units/5 Ml Syringe IV PUSH 50 units PRN PRN Administration after blood draws Heparin Sodium (Porcine) 500 units 12/11/20 12:54 12/19/20 11:21 Heparin Sod Flush 500 Units/5 Ml Syringe IV PUSH 500 units PRN PRN Administration see comments below Dextrose 1,000 mls @ 100 mls/hr 12/11/20 15:55 Dextrose 5% 1,000 Ml IVPB PRN PRN Hypoglycemia Protocol Piperacillin/Tazobactam/Dextrose 3.375 gm in 50 mls @ 100 mls/hr 12/13/20 18:00
--- NOTE | 2020-12-22 13:33 | CONS_ITS ---
DATE OF CONSULTATION: 12/20/2020 REASON FOR CONSULTATION: Fever. HISTORY OF PRESENT ILLNESS: I was not notified of this consult until about 1 hour ago. A 65-year-old female with metastatic cervical cancer that apparently has resulted in right ureteral obstruction. She is cared for at [facility] as well as here and about 6 weeks ago had a nephrostomy tube placed. She thinks this is due to be changed. She is receiving radiation therapy as well as chemotherapy for her cancer. She is on no antibiotics prior to admission. She was admitted to the hospital on December 11 with fever up to 38.0 at home. Chart indicates also Port-A-Cath placement on December 09 and in contrast to provide a history. Currently, her temperature home jesi as high as 38.5. Her admission evaluation for the fever was nondiagnostic. She was given vancomycin initially, now stopped, also cefepime. Now change back to piperacillin day 7 and consultation requested. She has had intermittent fever while here. Her neutropenia has fully resolved. Hospital course otherwise been complicated by a clogged nephrostomy tube on the right, which was irrigated successfully 2 days ago. Other complications have included corynebacterium bacteremia, stable chronic diarrhea is described as loose, but not liquid. Mild hypotension. She had no back pain. No gross hematuria. She does urinate via the bladder on a regular basis. ALLERGIES: THIMEROSAL. PRESENT MEDICATIONS: List reviewed. HABITS: No tobacco. No alcohol to excess. PAST MEDICAL HISTORY: In addition to the above, total knee arthroplasties bilaterally, basal cell cancer excision, rotator cuff surgery, carpal tunnel repair, type 2 diabetes mellitus, well controlled, hyperlipidemia, hypertension, renal insufficiency, and anxiety. REVIEW OF SYSTEMS: Poor appetite. Weight loss. Chronic loose bowel movements, not worse while in the hospital, fatigue, generalized weakness. 14-point review otherwise negative. FAMILY HISTORY: Lung cancer. SOCIAL HISTORY: She is . Does not work outside the home. Lives locally. PHYSICAL EXAMINATION: GENERAL: Middle-age female, appears her actual age. No acute distress. VITAL SIGNS: On arrival, temperature was 37.7, and she had a temperature during her Port-A-Cath placement 38.0. Her temperature later on the day of admission up to 38.4. She then defervesced jesi at 38.8 on the , up to 38.6 on the , been afebrile 24 hours plus, 110/58, 67, 20, 98%. SKIN: Warm and dry. No rashes. EENT: Conjunctivae are clear. The oral mucosa is well hydrated. NECK: No mass, thyromegaly. LUNGS: Clear to auscultation and percussion. BACK: Bilateral CVAT, worse on the left than the right. She has a nephrostomy tube in place. Draining cloudy urine, is beige in color. No blood. CARDIAC: Regular rate and rhythm. No murmurs or gallops. ABDOMEN: Obese, nontender. No organomegaly. No masses. EXTREMITIES: No clubbing, cyanosis, or edema. LABORATORY DATA: Nephrostomy tube culture, 12/18 with Pseudomonas Enterococcus, susceptibilities all pending. Urine culture on admission, no growth. Blood cultures on admission one out of two sets corynebacterium species. Subsequent blood cultures also no growth final. C. diff assay was obtained on December 19 and result was negative. Repeat urine culture also collected yesterday. White blood cell count on arrival 2.1 down to 1.2 on the , has been normal since the , hemoglobin 9.1, platelets are 87,000. Differential, 86% PMNs, 2 bands. She has mild hyponatremia. BUN 14, creatinine 1.2. Accu-Cheks low 100s to normal. AST 42, ALT 28, alkaline phosphatase 156, albumin 2.6. Urinalysis, multiple abnormalities, which are reviewed. RADIOLOGY: Renal ultrasound performed,
[2020-12-22 14:00] VITALS: BP 117/60; PULSE 68; RESP 20; TEMP 36.4; O2SAT 97
--- NOTE | 2020-12-22 15:28 | PM.IMPN ---
Progress Note: A&P Assessment and Plan (1) Sepsis: Code(s): A41.9 - Sepsis, unspecified organism Status: Acute Assessment and Plan: Patient presents with leukopenia, fever and rigors. Etiology most likely from urinary source. CXR clear making pulmonary etiology less likely (repeat CXR reviewed personally and again showing no concerns for infectious process). UCx left kidney negative (UCx from the Rt neph tube was contaminate); BCx (1of4) growing Corynebacterium felt to be a contaminate. BCx 12/18 NGTD. UCx 12/18 from Rt nephrostomy tube growing Pseudomonas and Enterococcus. Currently on Zosyn and Vanco. No further fevers and WBC normal but with bandemia. Appreciate ID input. No allergies. Will change to Cipro and Ampicillin. Home soon. (2) Complicated UTI (urinary tract infection): Code(s): N39.0 - Urinary tract infection, site not specified Status: Acute Assessment and Plan: As above. Patient with purulent output from the right nephrostomy tube. Continue abx. (3) Malfunction of nephrostomy tube: Code(s): T83.098A - Other mechanical complication of other urinary catheter, initial encounter Status: Acute Assessment and Plan: Right nephrostomy tube became obstructed but able to flush it clear. Purulent fluid in bag still. Tube replaced on 12/22. Appreciate urology input. (4) Pancytopenia due to antineoplastic chemotherapy: Code(s): D61.810 - Antineoplastic chemotherapy induced pancytopenia; T45.1X5A - Adverse effect of antineoplastic and immunosuppressive drugs, initial encounter Status: Acute Assessment and Plan: Hgb 6.7 on admission. Most likely related to the chemotherapy but Hgb 8.3 three days prior to admission and no evidence of acute blood loss. Hemolysis seems less likely. Patient transfused 2U on 12/11/20. Hgb dropped to 5.0 on 12/14 and she received 2 more units. Hgb has been in the 9-10 range since. Stool guaiac negative. Continue Protonix. Monitor HH. WBC 2100 with ANC 1750 on admission but now WBC normal but now with bandemia. Leukopenia was contributing to her inability to fight infection. Last chemo was 12/01. Bandemia more likely to be related to BM recover. Will follow. Plt count at 80K on admission. Repeat Plt count has been low but stable. Avoid Heparin products except for port. Follow. (5) CKD (chronic kidney disease) stage 4, GFR 15-29 ml/min: Code(s): N18.4 - Chronic kidney disease, stage 4 (severe) Status: Acute Assessment and Plan: Baseline Cr unclear with Cr 1.3 in May but 2.2 earlier in November (after nephrostomy tube placed). Cr 2.[address] of the abdomen and pelvis showing no evidence of left kidney obstruction. Cr improved to 1.1-1.2 and stable. Follow. (6) Type 2 diabetes mellitus without complications: Qualifiers: Diabetes mellitus chcf insulin use: without exterminator termite use Qualified Code(s): E11.9 - Type 2 diabetes mellitus without complications Code(s): E11.9 - Type 2 diabetes mellitus without complications Status: Acute Assessment and Plan: Patient only on Metformin at home. She checks her glucose 1x/week on average. Her A1c 6.9. The patient's blood glucose was reviewed on 12/22 Glucose remains well controlled. Continue AccuCheks covering with sliding scale. Hypoglycemia protocol available as needed. Continue to hold Metformin. (7) Cervical cancer: Qualifiers: Malignant neoplasm of cervix location: unspecified location Qualified Code(s): C53.9 - Malignant neoplasm of cervix uteri, unspecified Code(s): C53.9 - Malignant neoplasm of cervix uteri, unspecified Status: Acute Assessment and Plan: Patient with metastatic cervical cancer to the lungs and localized spread with adenopathy. Currently undergoing radiation and chemo therapy treatment. Dr Jernigan consulted. CT A/P showing a la
[2020-12-22 17:23] LABS: Glucose Point of Care 155 (65-105)
[2020-12-22] MEDS: AMPICILLIN TRIHYDRATE 500 MG CAPSULE PO (18:16)
[2020-12-22] MEDS: CIPROFLOXACIN 500 MG TAB PO (21:17)
[2020-12-22 22:00] VITALS: BP 111/56; PULSE 77; RESP 16; TEMP 37.2; O2SAT 94
[2020-12-23] MEDS: AMPICILLIN TRIHYDRATE 500 MG CAPSULE PO ×4 (01:06→18:19)
[2020-12-23] MEDS: CENTRAL LINE FLUSH 10 ML IV PUSH ×3 (05:44→19:58)
[2020-12-23 05:50] LABS: Basophils Percent Auto 0.8 % (0.2-1.2); Eosinophils Absolute Auto 0.1 K/mm3 (0-0.3); Eosinophils Percent Auto 1.9 % (0-4.4); Hematocrit 29.6 % (37.0-47.0); Hemoglobin 9.9 g/dL (12.0-15.0); Immature Granulocyte Percent A 8.2 % (0-0.5); Lymphocytes Absolute Auto 0.69 K/mm3 (0.9-3.2); Lymphocytes Percent Auto 14.2 % (18.3-44.2); Mean Corpuscular HGB Conc 33.4 g/dl (32-36); Mean Corpuscular Volume 86.8 fl (80-100); Monocytes Absolute Auto 0.3 K/mm3 (0.1-0.6); Monocytes Percent Auto 6.8 % (2.6-8.5); Neutrophils Absolute Auto 3.3 K/mm3 (1.3-6.7); Neutrophils Percent Auto 68.1 % (45.5-73.1); Platelet Count Result 109 k/mm3 (150-375); Red Blood Count 3.41 M/mm3 (4.2-5.4); Red Cell Distribution Width 13.9 % (11.5-14.5); White Blood Count 4.9 K/mm3 (4.5-10.0)
[2020-12-23 05:56] VITALS: BP 118/64; PULSE 71; RESP 18; TEMP 36.6; O2SAT 96
[2020-12-23 06:14] LABS: Anion Gap 4 mmol/L (8-16); Blood Urea Nitrogen 12 mg/dL (7-17); Calcium 7.9 mg/dL (8.4-10.2); Carbon Dioxide 28 mmol/L (22-30); Chloride 101 mmol/L (98-107); Estimated CRCL calculation 43 ml/min; Estimated Glomerular Filt Rate 38; Glucose 107 mg/dL (65-105); Magnesium 1.5 mg/dL (1.6-2.3); Potassium 3.5 mmol/L (3.4-5.0); Sodium 133 mmol/L (137-145)
[2020-12-23 06:35] LABS: Anisocytosis 1+ (NORMAL); Ovalocytes 1+ (NORMAL)
[2020-12-23 08:00] VITALS: PULSE 70; RESP 18; O2SAT 96
[2020-12-23 08:01] LABS: Glucose Point of Care 111 (65-105)
[2020-12-23] MEDS: MAGNESIUM SULF 2 GM/WATER 50ML 2 GM/50 ML BAG IVPB (08:31)
[2020-12-23 08:32] VITALS: PULSE 70
[2020-12-23] MEDS: ATORVASTATIN 10 MG TABLET PO (08:32)
[2020-12-23] MEDS: atenoloL 50 MG TABLET PO (08:32)
[2020-12-23] MEDS: PANTOPRAZOLE 40 MG TABLET PO (08:32)
[2020-12-23] MEDS: PARoxetine 10 MG TABLET 30 MG PO (08:32)
[2020-12-23] MEDS: MULTIVITAMINS THERAPEUTIC TAB (*BKC) 1 TABLET PO (08:33)
[2020-12-23] MEDS: CIPROFLOXACIN 500 MG TAB PO ×2 (08:34→19:58)
[2020-12-23 12:34] LABS: Glucose Point of Care 137 (65-105)
[2020-12-23 14:00] VITALS: BP 119/58; PULSE 72; RESP 20; TEMP 36.8; O2SAT 100
--- NOTE | 2020-12-23 15:39 | PC.NURSE ---
Care from 0700 to 1530 today was provided by Lucrecia Villasenor RN but charted by mistake under Desire Gooden RN.
--- NOTE | 2020-12-23 16:30 | PM.IMPN ---
Progress Note: A&P Assessment and Plan (1) Fall: Code(s): W19.XXXA - Unspecified fall, initial encounter Status: Acute Assessment and Plan: Patiet had a fall just standing at sink. She feels she just lost her balance. No head injury and nurolgically intact. Will do neuro checks tonight. PT/OT. Patient up with assistance only now. (2) Sepsis: Code(s): A41.9 - Sepsis, unspecified organism Status: Acute Assessment and Plan: Patient presents with leukopenia, fever and rigors. Etiology most likely from urinary source. CXR clear; repeat CXR again showing no concerns for infectious process. UCx left kidney negative (UCx from the Rt neph tube was contaminate); BCx (1of4) growing Corynebacterium felt to be a contaminate. BCx 12/18 NGTD. Patient had recurrent fever and UCx 12/18 from Rt nephrostomy tube growing Pseudomonas and Enterococcus. Was on Zosyn and Vanco. No further fevers and WBC normal. Appreciate ID input. No allergies. We changed to Cipro and Ampicillin. (3) Complicated UTI (urinary tract infection): Code(s): N39.0 - Urinary tract infection, site not specified Status: Acute Assessment and Plan: As above. Patient with purulent output from the right nephrostomy tube. (4) Malfunction of nephrostomy tube: Code(s): T83.098A - Other mechanical complication of other urinary catheter, initial encounter Status: Acute Assessment and Plan: Right nephrostomy tube became obstructed but able to flush it clear. Purulent fluid in bag but clearing. Tube replaced on 12/22. Appreciate urology input. (5) Pancytopenia due to antineoplastic chemotherapy: Code(s): D61.810 - Antineoplastic chemotherapy induced pancytopenia; T45.1X5A - Adverse effect of antineoplastic and immunosuppressive drugs, initial encounter Status: Acute Assessment and Plan: Hgb 6.7 on admission. Most likely related to the chemotherapy but Hgb 8.3 three days prior to admission and no evidence of acute blood loss. Hemolysis seems less likely. Patient transfused 2U on 12/11/20. Hgb dropped to 5.0 on 12/14 and she received 2 more units. Hgb has been in the 9-10 range since. Stool guaiac negative. Continue Protonix. Monitor HH. WBC 2100 with ANC 1750 on admission but now WBC normal but now with bandemia noted yesterday. Leukopenia was contributing to her inability to fight infection. Last chemo was 12/01. Bandemia more likely to be related to BM recover. Will follow. Plt count at 80K on admission. Repeat Plt count has been low but stable. Avoid Heparin products except for port. Follow. (6) CKD (chronic kidney disease) stage 4, GFR 15-29 ml/min: Code(s): N18.4 - Chronic kidney disease, stage 4 (severe) Status: Acute Assessment and Plan: Baseline Cr unclear with Cr 1.3 in May but 2.2 earlier in November (after nephrostomy tube placed). Cr 2.[address] of the abdomen and pelvis showing no evidence of left kidney obstruction. Cr has improved to 1.1-1.2 and was stable but worse at 1.4 today. Follow. (7) Type 2 diabetes mellitus without complications: Qualifiers: Diabetes mellitus intermediate insulin use: without remote computer terminal operator use Qualified Code(s): E11.9 - Type 2 diabetes mellitus without complications Code(s): E11.9 - Type 2 diabetes mellitus without complications Status: Acute Assessment and Plan: Patient only on Metformin at home. She checks her glucose 1x/week on average. Her A1c 6.9. The patient's blood glucose was reviewed on 12/23 Glucose remains well controlled. Continue AccuCheks covering with sliding scale. Hypoglycemia protocol available as needed. Continue to hold Metformin. (8) Cervical cancer: Qualifiers: Malignant neoplasm of cervix location: unspecified location Qualified Code(s): C53.9 - Malignant neoplasm of cervix uteri, unspecified Code(s):
[2020-12-23 16:35] VITALS: BP 150/83; PULSE 75; RESP 20; TEMP 37.2; O2SAT 97
[2020-12-23 16:55] LABS: Glucose Point of Care 100 (65-105)
[2020-12-23 21:01] LABS: Glucose Point of Care 99 (65-105)
[2020-12-23 21:27] VITALS: BP 135/70; PULSE 76; RESP 18; TEMP 36.9; O2SAT 95
[2020-12-24] MEDS: AMPICILLIN TRIHYDRATE 500 MG CAPSULE PO ×4 (00:23→16:55)
[2020-12-24] MEDS: CENTRAL LINE FLUSH 10 ML IV PUSH ×2 (05:37→13:37)
[2020-12-24 05:43] VITALS: BP 138/71; PULSE 76; RESP 18; TEMP 37; O2SAT 95
[2020-12-24 06:33] LABS: Anion Gap 3 mmol/L (8-16); Blood Urea Nitrogen 12 mg/dL (7-17); Calcium 7.9 mg/dL (8.4-10.2); Carbon Dioxide 29 mmol/L (22-30); Chloride 101 mmol/L (98-107); Estimated CRCL calculation 41 ml/min; Estimated Glomerular Filt Rate 35; Glucose 99 mg/dL (65-105); Potassium 3.9 mmol/L (3.4-5.0); Sodium 133 mmol/L (137-145)
[2020-12-24 07:45] LABS: Glucose Point of Care 103 (65-105)
[2020-12-24] MEDS: MULTIVITAMINS THERAPEUTIC TAB (*BKC) 1 TABLET PO (07:58)
[2020-12-24 07:59] VITALS: PULSE 74
[2020-12-24] MEDS: atenoloL 50 MG TABLET PO (07:59)
[2020-12-24] MEDS: ATORVASTATIN 10 MG TABLET PO (07:59)
[2020-12-24] MEDS: CIPROFLOXACIN 500 MG TAB PO (08:01)
[2020-12-24] MEDS: PARoxetine 10 MG TABLET 30 MG PO (08:01)
[2020-12-24] MEDS: PANTOPRAZOLE 40 MG TABLET PO (08:02)
[2020-12-24 11:23] LABS: Glucose Point of Care 141 (65-105)
--- NOTE | 2020-12-24 11:43 | PCNFU ---
Nutrition Follow-Up Complete: Involuntary weight loss related to poor appetite as evidenced by reported 25 pound weight loss x 2-3 months. Goal: Patient to consume 50% of meals/supplements or greater and stabilize weight loss. Progress being made toward goal. Pt current nutrition is Regular Diet. Last recorded weight is 99.5 kg. Stable. Bowel Motility: Last BM:12/23 Labs Reviewed: Na 133, K 3.9, GFR 35, BUN 12, Cr 1.5, Glu 99 Meds Noted: Tylenol PRN, Ampicillin, Tenormin, Lipitor, Cipro Po, Dextrose PRN, Glucagon PRN, Glucose-15 PRN, Heparin Flush PRN, Novolog, Loperamide PRN, Lozaar, Multivitamin, Ditropan Xl, Protonix, Paxil, Central line flush, Desyrel PRN. Additional Notes: Nutrition follow up. Frozen Nutritional Treat being received BID. Chocolate flavor was preferred. Diet office is aware. 0 to 25% of meals being consumed. Patient reports having no appetite. PO intake was encouraged. Follow up in 5 days.
--- NOTE | 2020-12-24 12:01 | PCNSR ---
On 12/24/20, the student,Celina Byrd, provided care and completed [facility] documentation on this patient. I have reviewed the student's documentation and agree with the findings.
[2020-12-24 14:00] VITALS: BP 130/61; PULSE 77; RESP 16; TEMP 36.7; O2SAT 94
--- NOTE | 2020-12-24 14:44 | ECG_ITS ---
Measurements Intervals [place] Rate: 74 P: 78 DC: 228 QRS: 28 QRSD: 87 T: 58 QT: 439 QTc: 490 Interpretive Statements SINUS RHYTHM WITH FIRST DEGREE AV BLOCK VENTRICULAR TRIGEMINY BASELINE ARTIFACT- V5-V6 ABNORMAL ECG Electronically Signed On 12-24-2020 19:25:24 CDT by Carlos Schreiber D.O.
[2020-12-24 15:16] VITALS: BP 150/83; PULSE 75; RESP 20; TEMP 37.2; O2SAT 97
--- NOTE | 2020-12-24 16:47 | PM.DS ---
DS: Admitting Diagnosis Admitting Diagnosis Admitting Diagnosis: Fever DS: Discharge Diagnosis Discharge Diagnosis (1) Fall: Code(s): W19.XXXA - Unspecified fall, initial encounter Status: Acute Assessment and Plan: Vicki had a fall on 12/23 just standing at sink. She feels she just lost her balance. No head injury and neurologically intact. Sacral and coccyx xrays were negative for fracture. PT/OT worked with her and felt patient was independent. (2) Sepsis: Code(s): A41.9 - Sepsis, unspecified organism Status: Acute Assessment and Plan: Patient presents with leukopenia, fever and rigors. Etiology most likely from urinary source. CXR clear; repeat CXR again showing no concerns for infectious process. UCx left kidney negative (UCx from the Rt neph tube was contaminate); BCx (1of4) growing Corynebacterium felt to be a contaminate. BCx / NGTD. Patient had recurrent fever and UCx 12/18 from Rt nephrostomy tube growing Pseudomonas and Enterococcus. Was on Zosyn and Vanco. No further fevers and WBC normal. She was changed to Cipro and Ampicillin. (3) Complicated UTI (urinary tract infection): Code(s): N39.0 - Urinary tract infection, site not specified Status: Acute Assessment and Plan: As above. Patient had purulent output from the right nephrostomy tube that cleared. (4) Malfunction of nephrostomy tube: Code(s): T83.098A - Other mechanical complication of other urinary catheter, initial encounter Status: Acute Assessment and Plan: Right nephrostomy tube became obstructed but able to flush it clear. Purulent fluid in bag but ultimately cleared. Nephrostomy tube replaced on 12/22. Appreciate urology input. (5) Pancytopenia due to antineoplastic chemotherapy: Code(s): D61.810 - Antineoplastic chemotherapy induced pancytopenia; T45.1X5A - Adverse effect of antineoplastic and immunosuppressive drugs, initial encounter Status: Acute Assessment and Plan: Hgb 6.7 on admission. Most likely related to the chemotherapy; no evidence of acute blood loss. Hemolysis seems less likely. Patient transfused 2U on 12/11/20. Hgb dropped to 5.0 on 12/14 and she received 2 more units. Hgb has been in the 9-10 range since. Stool guaiac negative. Emperically treated with Protonix. WBC 2100 with ANC 1750 on admission but now WBC normal. Leukopenia was contributing to her inability to fight infection. Last chemo was 12/01. Transient bandemia more likely to be related to BM recover. Plt count at 80K on admission. Repeat Plt count has been low but stable. Platelet count up to 109K (6) CKD (chronic kidney disease) stage 4, GFR 15-29 ml/min: Code(s): N18.4 - Chronic kidney disease, stage 4 (severe) Status: Acute Assessment and Plan: Baseline Cr unclear with Cr 1.3 in May but 2.2 earlier in November (after nephrostomy tube placed). Cr 2.[address] of the abdomen and pelvis showing no evidence of left kidney obstruction. Cr has improved to 1.1-1.2 and was stable but climbed to 1.5 but probably still with in her baseline. (7) Type 2 diabetes mellitus without complications: Qualifiers: Diabetes mellitus penitentiary insulin use: without superintendent commissary use Qualified Code(s): E11.9 - Type 2 diabetes mellitus without complications Code(s): E11.9 - Type 2 diabetes mellitus without complications Status: Acute Assessment and Plan: Patient only on Metformin at home. She checks her glucose 1x/week on average. Her A1c 6.9. The patient's blood glucose was monitored with AccuCheks covering with sliding scale. Hypoglycemia protocol was available as needed. We held her Metformin. (8) Cervical cancer: Qualifiers: Malignant neoplasm of cervix location: unspecified location Qualified Code(s): C53.9 - Malignant neoplasm of cervix uteri, unspecified Code(s): C53.9
[2020-12-24 16:58] LABS: Glucose Point of Care 108 (65-105)
[2020-12-24] MEDS: HEPARIN SOD FLUSH 500 UNITS/5 ML SYRINGE IV PUSH (17:16)
== END 2020-12-24 17:40 | disposition home health service (06) | DRG 698 ==
LOC: ANHED 09:22 → ANHIMU 10:22 → ANH3MEDSUR 12-15 18:43
PROVIDERS: Emergency Medicine; Internal Medicine; Internal Medicine Hematology & Oncology; Admitting Provider Internal Medicine; Emergency Provider Emergency Medicine; PCP Internal Medicine; Visit Provider Internal Medicine Cardiovascular Disease
DX: T83.512A Infection and inflammatory reaction due to nephrostomy catheter, initial encounter (principal); A41.9 Sepsis, unspecified organism; D61.810 Antineoplastic chemotherapy induced pancytopenia; N39.0 Urinary tract infection, site not specified; N18.4 Chronic kidney disease, stage 4 (severe); C78.00 Secondary malignant neoplasm of unspecified lung; C53.9 Malignant neoplasm of cervix uteri, unspecified; B96.5 Pseudomonas (aeruginosa) (mallei) (pseudomallei) as the cause of diseases classified elsewhere; T83.092A Other mechanical complication of nephrostomy catheter, initial encounter; B95.2 Enterococcus as the cause of diseases classified elsewhere; W19.XXXA Unspecified fall, initial encounter; E86.0 Dehydration; T45.1X5A Adverse effect of antineoplastic and immunosuppressive drugs, initial encounter; F41.9 Anxiety disorder, unspecified; D64.9 Anemia, unspecified; E11.22 Type 2 diabetes mellitus with diabetic chronic kidney disease; I12.9 Hypertensive chronic kidney disease with stage 1 through stage 4 chronic kidney disease, or unspecified chronic kidney disease; E78.5 Hyperlipidemia, unspecified; Z96.653 Presence of artificial knee joint, bilateral; Z66 Do not resuscitate; Z85.828 Personal history of other malignant neoplasm of skin; E66.9 Obesity, unspecified; Z68.35 Body mass index [BMI] 35.0-35.9, adult; Z86.711 Personal history of pulmonary embolism
CPT/HCPCS: 36415; 36430; 50435; 71045; 72100; 72220; 74176; 76775; 80048; 80053; 80069; 81001; 82274; 82607; 82948; 83010; 83036; 83540; 83550; 83605; 83615; 83690; 83735; 84100; 84443; 84484; 85014; 85018; 85025; 85055; 85610; 85730; 86140; 86850; 86880; 86900; 86901; 86920; 87040; 87045; 87046; 87070; 87075; 87077; 87086; 87088; 87186; 87205; 87324; 87427; 93005; 96360; 97110; 97116; 97161; 97165; 97530; 97535; 99285; A9270; C1729; C1769; C9113; J0131; J0692; J1642; J2405; J2543; J3370; J3475; J7030; J7050; P9016; Q5101; Q9966

== ENCOUNTER 2021-01-17 13:06 | Inpatient (IN) | payer OTHER, SELFPAY ==
[2021-01-17] VITALS (23 sets, daily range): BP systolic 100–132; BP diastolic 50–90; PULSE 80–117; RESP 13–23; TEMP 36.6–38; O2SAT 96–99; BMI 30.6
--- NOTE | ~2021-01-17 | CT_ITS ---
EXAMINATION: CT abdomen pelvis w con INDICATION: Abdominal pain, history of cervical TECHNIQUE: Computed tomographic images of the abdomen and pelvis were obtained after the administrati on of 100 cc of Omnipaque 350 intravenous contrast. The dose-length product (DLP) was 853.63 mGy-cm. Automated exposure control and iterative reconstruction technique were employed. COMPARISON: 12/11/2020 FINDINGS: There are multiple enlarging nodules and masses of the visualized lung bases. The largest m easures 4.3 x 2.1 cm in the left lower lobe, previously 2.1 x 1.7 cm. The heart size is normal. There are pathologically enlarged mediastinal and left hilar lymph nodes. Although not optimized for evalu ation of the pulmonary arteries, a pulmonary embolus is seen in the right lower lobe. There is an en larging 2.8 cm mass in the right hepatic lobe on image 75. The spleen, pancreas, gallbladder, and lef t adrenal gland are normal. There is a 1.3 x 0.7 cm mass of the right adrenal gland. There are small soft tissue metastases near the right adrenal gland. There is retroperitoneal lymphadenopathy with in terval enlargement. There is an ill-defined mass of the cervix measuring approximately 7.2 x 4.3 cm w hich invades into the right pelvis and causes obstruction of the distal right ureter. This results in moderate right hydronephrosis. The right percutaneous nephrostomy appears to have partially backed o ut and now seen within the parenchyma of the kidney. There is and enlargement of the right kidney and ill-defined and patchy enhancement of the kidney as well as urothelial enhancement of the right uret er and renal pelvis. Pathologically enlarged right common and external iliac chain lymph nodes measur e up to 2 cm. There is no free intraperitoneal gas or evidence of bowel obstruction. There is a new, likely pathologic fracture of the L3 vertebral body. IMPRESSION: 1. Ill-defined mass of the cervix invading into the right pelvis causing obstruction of the distal ri ght ureter. 2. Enlarged and ill-defined right kidney with urothelial enhancement of the renal pelvis and ureter, consistent with pyelonephritis and possibly multiple renal abscesses. Right percutaneous nephrostomy within the cortex of the right kidney lower pole. 3. Interval worsening of metastatic disease in the chest, abdomen, and pelvis as detailed above. 4. Pulmonary embolism in the right lower lobe. 5. New fracture of the L3 vertebral body, likely pathologic. These findings were discussed with Dr. Joel Ramos DO in the Emergency Department at 1512 hour s on 01/17/2021. Reviewed, dictated and finalized at location A. IMPRESSION: 1. Ill-defined mass of the cervix invading into the right pelvis causing obstru ction of the distal right ureter. 2. Enlarged and ill-defined right kidney with urothelial enhancement of the ford al pelvis and ureter, consistent with pyelonephritis and possibly multiple arnulfo l abscesses. Right percutaneous nephrostomy within the cortex of the right kidn ey lower pole. 3. Interval worsening of metastatic disease in the chest, abdomen, and pelvis a s detailed above. 4. Pulmonary embolism in the right lower lobe. 5. New fracture of the L3 vertebral body, likely pathologic. These findings were discussed with Dr. Joel Ramos DO in the Emergency D epartment at 1512 hours on 01/17/2021.
--- NOTE | ~2021-01-17 | CT_ITS ---
EXAMINATION: CT brain wo con INDICATION: Altered mental status COMPARISON: None TECHNIQUE: Standard unenhanced head CT. The dose-length product (DLP) was 681.00 mGy-cm. The mA was a djusted according to patient size. Iterative reconstruction technique was employed. FINDINGS: There is no acute intraparenchymal hemorrhage. No evidence of mass lesion. No evidence of a cute infarction. There is a small old lacunar infarct in the right basal ganglia. There is mild periv entricular and subcortical hypodensity probably related to small vessel ischemic disease. There is mi ld prominence of the sulci and ventricles related to cerebral atrophy. Intracranial calcified cerebra l atherosclerosis is noted. There are no extra-axial collections. There is no mass effect or midline shift. The orbits and soft tissues are unremarkable. There is mild mucosal thickening of the paranasa l sinuses. IMPRESSION: 1. No acute intracranial abnormality. 2. Age related findings. Reviewed, dictated and finalized at location A.
[2021-01-17] MEDS: ONDANSETRON INJ 4 MG/2 ML VIAL IV PUSH (13:59)
[2021-01-17] MEDS: SODIUM CHLORIDE 0.9% IV 1,000 ML 999 ML IV CONT (13:59)
[2021-01-17 14:10] LABS: Basophils Percent Auto 0.6 % (0.2-1.2); Eosinophils Absolute Auto 0.1 K/mm3 (0-0.3); Eosinophils Percent Auto 1.8 % (0-4.4); Hematocrit 24.8 % (37.0-47.0); Hemoglobin 8.1 g/dL (12.0-15.0); Immature Granulocyte Absolute 0.13 K/mm3 (0.00-0.031); Lymphocytes Absolute Auto 1.02 K/mm3 (0.9-3.2); Lymphocytes Percent Auto 15.7 % (18.3-44.2); Mean Corpuscular HGB Conc 32.7 g/dl (32-36); Mean Corpuscular Hemoglobin 29.3 pg (26-34); Mean Corpuscular Volume 89.9 fl (80-100); Mean Platelet Volume 8.7 fl (7.4-10.4); Monocytes Absolute Auto 0.6 K/mm3 (0.1-0.6); Monocytes Percent Auto 9.9 % (2.6-8.5); Neutrophils Absolute Auto 4.5 K/mm3 (1.3-6.7); Platelet Count Result 207 k/mm3 (150-375); Red Blood Count 2.76 M/mm3 (4.2-5.4); Red Cell Distribution Width 15.9 % (11.5-14.5); White Blood Count 6.5 K/mm3 (4.5-10.0)
[2021-01-17 14:20] LABS: Alanine Aminotransferase 16 U/L (4-35); Albumin Level 3.3 g/dL (3.5-5.1); Alkaline Phosphatase 108 U/L (38-126); Anion Gap 7 mmol/L (8-16); Aspartate Amino Transferase 38 U/L (14-36); Bilirubin,Total 0.6 mg/dL (0.2-1.3); Blood Urea Nitrogen 18 mg/dL (7-17); Carbon Dioxide 26 mmol/L (22-30); Chloride 100 mmol/L (98-107); Estimated CRCL calculation 40 ml/min; Estimated Glomerular Filt Rate 38; Glucose 104 mg/dL (65-105); Sodium 133 mmol/L (137-145)
[2021-01-17 14:21] LABS: INR 1.3; Prothrombin Time 16.4 Seconds (11.1-14.7)
[2021-01-17 14:22] LABS: Partial Thromboplastin Time 33.6 SECONDS (22.3-36.8)
[2021-01-17 14:41] LABS: Add Urine Microscopic? YES; Appearance Urine Cloudy (Clear); Bacteria Urine 1+ /hpf; Bilirubin Urine Negative (Negative); Blood Urine 1+ (Negative); Color Urine Amber (Yellow); Glucose Urine UA Negative (Negative); Ketones Urine Negative (Negative); Leukocyte Esterase Ur 2+ LEU/UL (Negative); Mucus Urine Few /lpf; Nitrate Urine Negative (Negative); Protein Urine 3+ mg/dL (Negative); RBC Urine 21-50 /hpf (0-2); Specific Grav Ur 1.019 (1.001-1.035); Urobilinogen Urine Negative mg/dL (<2.0); WBC Urine >75 /hpf
--- NOTE | 2021-01-17 15:41 | ED.NAVMDI ---
HPI - Nausea/Vomiting/Diarrhea General Chief complaint: Nausea/Vomiting/Diarrhea Stated complaint: dehydrated Time Seen by Provider: 01/17/21 13:18 Source: RN notes reviewed History of Present Illness HPI Narrative: Patient presents to emergency room from home for abdominal pain. Patient states that symptoms been ongoing progressively worsening over the last week with associated nausea as well as weakness. Patient states she has a history of cervical cancer with metastasis and is followed by Dr. Jernigan patient was seen in November and had nephrostomy tube placed at that time with UTI and had to have chemo stopped at that time secondary to UTI and is not been on chemo since then she denies any fevers or chills chest pain shortness of breath or any other symptoms Related Data Home Medications Medication Instructions Recorded Confirmed loperamide 2 mg PO Q4H PRN 12/07/20 12/11/20 Adult One Daily Multivitamin 1 tablet PO DAILY 12/09/20 12/11/20 Allergies Allergy/AdvReac Type Severity Reaction Status Date / Time thimerosal Allergy Intermediate urticaria Verified 12/09/20 11:48 Review of Systems Review of Systems: Narrative: Gen.: Denies fevers or chills ENT: Denies congestion Respiratory: Denies shortness of breath or cough CV: Denies chest pain or palpitations GI: See HPI denies burning, urgency, frequency or hematuria Musculoskeletal: Denies back pain or muscle pain Neuro: Denies numbness, tingling, weakness or focal weakness Skin: Denies rash Except as documented, all other systems reviewed and negative PMFSH Past Medical History Medical History Anxiety Cervical cancer CKD (chronic kidney disease) stage 4, GFR 15-29 ml/min Essential (primary) hypertension Hx of pulmonary embolus Hyperlipidemia Lung metastases Type 2 diabetes mellitus without complications Surgical History Surgical History History of left knee replacement 2018 History of total right knee replacement 2017 Hx of basal cell carcinoma excision Hx of carpal tunnel repair Hx of colonoscopy Normal in 2011 Hx of rotator cuff surgery Family History Family History Mother Family history of lung cancer Sibling Patient's sister is Social History Social History Social History: She lives at home with her . Lifelong nonsmoker. She drinks 3 alcoholic drinks per month. No drug use. They have a dog at home. She is a DNR. She voices understanding with this means. Her is in agreement. Her would be the individual would make medical decisions for her if she is not able. Smoking status: Never smoker Second hand tobacco smoke exposure: No Alcohol intake: never Substance use: never Substance use type: does not use Gender identity (if verbalized by the patient): Female Spiritual care concerns: No Exam Narrative: Exam Narrative: APPEARANCE: No acute distress, nontoxic, resting in bed HEENT: Normocephalic, atraumatic, oral mucosa dry RESPIRATORY: No respiratory distress, clear to auscultation bilaterally with no rhonchi wheezing or rales CARDIOVASCULAR: RRR s murmur ABDOMINAL: Soft nondistended diffusely tender palpation no rebound or guarding, nephrostomy tube in right kidney with yellow urine draining MUSCULOSKELETAl: Moves all extremities. No clubbing, cyanosis or edema. NEURO: Awake and alert. Following commands, speech normal, no focal deficits SKIN:: Warm, dry. Normal Color PSYCHIATRIC: Normal affect/mood Course Course Emergency Course: This is Dr. Castillo for radiology states that this time with nephrostomy tube draining not recommend any attempts at replacement as replacement would be difficult Called and discussed with NELSON Varela for Dr. Varghese
[2021-01-17] MEDS: HEPARIN SODIUM 5,000 UNITS/ML VIAL 5500 UNITS IV PUSH (16:27)
[2021-01-17] MEDS: HEPARIN SOD/D5W 100 UNITS/ML 25,000 UNITS/250 ML BAG 13 UNITS IV CONT (16:30)
[2021-01-17] MEDS: SODIUM CHLORIDE 0.9% IV 1,000 ML 100 ML IV CONT (17:41)
--- NOTE | 2021-01-17 17:57 | ADMGEN ---
This patient, Shirley Samaniego, was admitted to 3 [facility] Surg Room 320-01. Patient/family oriented to hospital policies and general routines including ID bracelet, bed and alarms, visiting hours, pain management, procedures, bathroom and other care routines, personal items, smoking policy, room service/diet, and visiting hours. Information on how to activate the Rapid Response Team has been discussed. Patient/Family are encouraged to report perceived risks to care and to ask questions if they do not understand what they are told or what they should do.
--- NOTE | 2021-01-17 21:25 | PM.IMHP ---
H&P: HPI History of Present Illness Date/Time: 01/17/21 21:25 Chief Complaint: FEVERS Narrative: This is a 65-year-old female with past medical history significant for metastatic cervical CA, right nephrostomy tube placement, recurrent urinary tract infection, patient presented to the emergency room due to fevers she had a recent admission to the hospital which he was at treated for urinary tract infection and bacteremia patient was discharged home on extended course of p.o. antibiotics. Patient has been having high fevers rigors chills at home at the time of my visit I was unable to get much history from the patient due to her high fever and altered mental status. As per medical records review and emergency room notes patient has a urinary tract infection a CT of abdomen and pelvis showed progression of metastatic disease, likely right kidney multiple abscesses, obstruction of the distal right ureter due to mass, new fracture vertebrae, pathology, and pulmonary embolism. Patient has been placed in general medical floor. Review of Systems Review of Systems: ROS unobtainable: Yes unobtainable due to medical condition PMFSH Past Medical History Medical History Anxiety Cervical cancer CKD (chronic kidney disease) stage 4, GFR 15-29 ml/min Essential (primary) hypertension Hx of pulmonary embolus Hyperlipidemia Lung metastases Type 2 diabetes mellitus without complications Surgical History Surgical History History of left knee replacement 2018 History of total right knee replacement 2017 Hx of basal cell carcinoma excision Hx of carpal tunnel repair Hx of colonoscopy Normal in 2011 Hx of rotator cuff surgery Family History Family History Mother Family history of lung cancer Sibling Patient's sister is Social History Social History Social History: She lives at home with her . Lifelong nonsmoker. She drinks 3 alcoholic drinks per month. No drug use. They have a dog at home. She is a DNR. She voices understanding with this means. Her is in agreement. Her would be the individual would make medical decisions for her if she is not able. Smoking status: Never smoker Second hand tobacco smoke exposure: No Alcohol intake: never Substance use: never Substance use type: does not use Gender identity (if verbalized by the patient): Female Sexual Orientation (if Verbalized by the Patient): Straight or Heterosexual Spiritual care concerns: No Meds Home Medications and Allergies Home Medications Medication Instructions Recorded Confirmed Type atorvastatin 10 mg tablet 10 mg PO DAILY #90 tablet 01/20/20 01/17/21 Rx paroxetine HCl 30 mg tablet 30 mg PO DAILY #90 tablet 06/02/20 01/17/21 Rx loperamide 2 mg PO Q4H PRN 12/07/20 01/17/21 History Adult One Daily Multivitamin 1 tablet PO DAILY 12/09/20 01/17/21 History acetaminophen [Mapap 650 mg PO Q4H PRN #0 tablet 12/24/20 01/17/21 Rx (acetaminophen)] atenolol 50 mg PO DAILY #30 tablet 12/24/20 01/17/21 Rx Allergies Allergy/AdvReac Type Severity Reaction Status Date / Time thimerosal Allergy Intermediate urticaria Verified 01/17/21 17:51 Vital Signs Vital Signs - 24 hr 01/17/21 13:09 01/17/21 13:43 01/17/21 13:45 Temperature 97.8 F Pulse Rate 86 83 81 Respiratory Rate 16 20 19 Blood Pressure 119/90 Pulse Oximetry 97 98 01/17/21 13:46 01/17/21 14:00 01/17/21 14:01 Temperature 98.0 F Pulse Rate 83 82 81 Respiratory Rate 23 H 18 20 Blood Pressure 112/75 100/70 Pulse Oximetry 98 01/17/21 14:15 01/17/21 14:16 01/17/21 14:30 Temperature Pulse Rate 85 82 83 Respiratory Rate 20 21 H 23 H Blood Pressure 107/53 L Pulse Oximetry 99 05
[2021-01-17] MEDS: ACETAMINOPHEN 650 MG SUPPOSITORY RECTAL (22:05)
[2021-01-17 22:27] LABS: Lactic Acid Reflex 1.5 mmol/L (0.7-2.1)
[2021-01-17 23:00] LABS: Glucose Point of Care 127 mg/dl (65-105)
[2021-01-17 23:27] LABS: Partial Thromboplastin Time 101.1 SECONDS (22.3-36.8)
[2021-01-18] VITALS (13 sets, daily range): BP systolic 94–117; BP diastolic 50–78; PULSE 88–106; RESP 16–18; TEMP 36.3–37.1; O2SAT 95–99
[2021-01-18 05:23] LABS: Basophils Percent Auto 0.4 % (0.2-1.2); Eosinophils Absolute Auto 0.1 K/mm3 (0-0.3); Eosinophils Percent Auto 2.7 % (0-4.4); Hematocrit 21.9 % (37.0-47.0); Immature Granulocyte Percent A 1.9 % (0-0.5); Lymphocytes Absolute Auto 0.57 K/mm3 (0.9-3.2); Lymphocytes Percent Auto 10.9 % (18.3-44.2); Mean Corpuscular Hemoglobin 28.8 pg (26-34); Mean Corpuscular Volume 90.1 fl (80-100); Mean Platelet Volume 8.6 fl (7.4-10.4); Monocytes Absolute Auto 0.5 K/mm3 (0.1-0.6); Monocytes Percent Auto 9.4 % (2.6-8.5); Neutrophils Absolute Auto 3.9 K/mm3 (1.3-6.7); Neutrophils Percent Auto 74.7 % (45.5-73.1); Platelet Count Result 154 k/mm3 (150-375); Red Blood Count 2.43 M/mm3 (4.2-5.4); White Blood Count 5.2 K/mm3 (4.5-10.0)
[2021-01-18 05:34] LABS: Alanine Aminotransferase 13 U/L (4-35); Albumin Level 2.7 g/dL (3.5-5.1); Alkaline Phosphatase 93 U/L (38-126); Anion Gap 6 mmol/L (8-16); Aspartate Amino Transferase 30 U/L (14-36); Bilirubin,Total 0.4 mg/dL (0.2-1.3); Blood Urea Nitrogen 16 mg/dL (7-17); Calcium 8.1 mg/dL (8.4-10.2); Carbon Dioxide 27 mmol/L (22-30); Chloride 101 mmol/L (98-107); Estimated CRCL calculation 38 ml/min; Estimated Glomerular Filt Rate 35; Glucose 101 mg/dL (65-105); Potassium 3.7 mmol/L (3.4-5.0); Sodium 134 mmol/L (137-145)
[2021-01-18 05:37] LABS: Partial Thromboplastin Time 152.1 SECONDS (22.3-36.8)
[2021-01-18] MEDS: SODIUM CHLORIDE 0.9% IV 1,000 ML 100 ML IV CONT ×2 (05:54→22:51)
[2021-01-18 08:57] LABS: Hematocrit 21.5 % (37.0-47.0)
[2021-01-18 10:29] LABS: Partial Thromboplastin Time 33.5 SECONDS (22.3-36.8)
[2021-01-18] MEDS: HEPARIN SODIUM 5,000 UNITS/ML VIAL 5500 UNITS IV PUSH (10:40)
[2021-01-18] MEDS: SODIUM CHLORIDE 0.9% IV 250 ML 30 ML IV CONT (12:13)
--- NOTE | 2021-01-18 12:50 | PDONCCN ---
[facility] - Date of Consult Date/Time: 01/18/21 12:50 Requesting Physician: Rafa Yu MD Primary Care Provider: Ben Ceron MD - Consult Narrative Reason for consult: Metastatic cervical cancer Narrative: Shirley Samaniego is a 65 year old female with recently diagnosed metastatic cervical cancer with generalized lymphadenopathy in hydroureteronephrosis status post right-sided nephrostomy tube placement. She had initial chemotherapy with cisplatin and radiation therapy for vaginal bleeding. Cisplatin was discontinued after her last admission to the hospital due to intractable nausea vomiting. She came into the office yesterday for follow-up. She found to be quite dehydrated along with intractable nausea vomiting and not able to keep anything down. She was quite tired and fatigued. His labs showed hemoglobin of 8.9. She was referred to the ER for evaluation and admission. She got admitted to the hospital with intractable nausea vomiting. CT scan of abdomen and pelvis that showed ill-defined mass of the cervix causing obstruction of the distal ureter as well as worsening metastatic disease in the chest abdomen and pelvis. She also has pulmonary embolism in the right lower lobe. Labs showed hemoglobin of 7.0. She denies any melena hematochezia. She is feeling better after IV hydration and currently receiving well a transfusion. She is complaining of lower abdominal and pelvic pain. Nausea vomiting has improved. Review of Systems - Review of Systems All systems reviewed & are unremarkable except as noted in [facility] and [facility] Medical History: Medical History (Last Reviewed 01/17/21 @ 15:41 by Joel Ramos DO) Anxiety Cervical cancer CKD (chronic kidney disease) stage 4, GFR 15-29 ml/min Essential (primary) hypertension Hx of pulmonary embolus Hyperlipidemia Lung metastases Type 2 diabetes mellitus without complications Surgical History: Surgical History (Last Reviewed 12/18/20 @ 12:21 by Chay Ding MD) History of left knee replacement 2018 History of total right knee replacement 2017 Hx of basal cell carcinoma excision Hx of carpal tunnel repair Hx of colonoscopy Normal in 2011 Hx of rotator cuff surgery Family History: Family History (Last Reviewed 01/17/21 @ 17:58 by Emily Ortega RN) Mother Family history of lung cancer Sibling Patient's sister is - Social History Social History: Social History (Last Reviewed 01/17/21 @ 15:41 by KARLY Renae Gender Identity: Gender identity (if verbalized by the patient): Female Sexual Orientation: Sexual Orientation (if Verbalized by the Patient): Straight or Heterosexual Alcohol Use: Alcohol intake: never Substance Use: Substance use: never Substance use type: does not use Others: Spiritual care concerns: No Smoking Status: Smoking status: Never smoker Second hand tobacco smoke exposure: No Meds Home Medications Medication Instructions Recorded Confirmed Type atorvastatin 10 mg tablet 10 mg PO DAILY #90 tablet 01/20/20 01/17/21 Rx paroxetine HCl 30 mg tablet 30 mg PO DAILY #90 tablet 06/02/20 01/17/21 Rx loperamide 2 mg PO Q4H PRN 12/07/20 01/17/21 History Adult One Daily Multivitamin 1 tablet PO DAILY 12/09/20 01/17/21 History acetaminophen [Mapap 650 mg PO Q4H PRN #0 tablet 12/24/20 01/17/21 Rx (acetaminophen)] atenolol 50 mg PO DAILY #30 tablet 12/24/20 01/17/21 Rx Allergies Allergy/AdvReac Type Severity Reaction Status Date / Time thimerosal Allergy Intermediate urticaria Verified 01/17/21 17:51 Results - Labs CBC & Chem 7: 01/18/21 08:19 01/18/21 05:04 Labs: Short CBC 01/17/21 01/18/21 01/18/21 Range/Units 13:47 05:04 08:19 WBC 6.5 5.2 (4.5-10.0) K/mm3 Hgb 8.1 L 7.0 L 7.0 L (12.0-15.0) g/dL Hct 24.8 L 21.9 L 21.5 L (37.0-47.0) % Plt Count 207 154 (150
[2021-01-18 12:59] LABS: Add Urine Microscopic? YES; Appearance Urine Cloudy (Clear); Bacteria Urine Trace /hpf; Bilirubin Urine Negative (Negative); Blood Urine 1+ (Negative); Color Urine Yellow (Yellow); Glucose Urine UA Negative (Negative); Ketones Urine Negative (Negative); Leukocyte Esterase Ur 3+ LEU/UL (NEGATIVE); Nitrate Urine Negative (Negative); Protein Urine 1+ mg/dL (Negative); Squamous Epithelial Cell Urine Many /hpf (Few); Urobilinogen Urine Negative mg/dL (<2.0); WBC Clumps Urine Present /HPF; WBC Urine >75 /hpf (0-3)
--- NOTE | 2021-01-18 12:59 | PM.IMPN ---
Progress Note: A&P Assessment and Plan (1) Sepsis: Code(s): A41.9 - Sepsis, unspecified organism Status: Acute (2) Primary cervical cancer with metastasis to other site: Code(s): C53.9 - Malignant neoplasm of cervix uteri, unspecified Status: Acute (3) Pulmonary embolism: Code(s): I26.99 - Other pulmonary embolism without acute cor pulmonale Status: Acute (4) CKD (chronic kidney disease) stage 4, GFR 15-29 ml/min: Code(s): N18.4 - Chronic kidney disease, stage 4 (severe) Status: Acute (5) Type 2 diabetes mellitus without complications: Qualifiers: Diabetes mellitus termite treater insulin use: without snf use Qualified Code(s): E11.9 - Type 2 diabetes mellitus without complications Code(s): E11.9 - Type 2 diabetes mellitus without complications Status: Acute (6) Nonalcoholic steatohepatitis (SIDHU): Code(s): K75.81 - Nonalcoholic steatohepatitis (SIDHU) Status: Acute (7) Encephalopathy acute: Code(s): G93.40 - Encephalopathy, unspecified Status: Acute (8) Pyelonephritis: Code(s): N12 - Tubulo-interstitial nephritis, not specified as acute or chronic Status: Acute (9) Anemia: Code(s): D64.9 - Anemia, unspecified Status: Acute Additional Plan Patient has been admitted to [address] [place] [address]. She has a history of Enterococcus and Pseudomonas pyelonephritis and as such Zosyn and vancomycin were started. Heparin drip started for her PE. Given her CKD, we will change her to cefepime. Spoke with Radiology today who was concerned that the nephrostomy tube was not well position. Given that she is stable, will hold off on having this replaced today. Spoke with her and her about hospice. Information was provided by Case Management. Later, I spoke with the oncologist who stated that he agreed with hospice and has already spoke with the patient about this today. If patient and family are in agreement, will make plans for discharge home with hospice care. Continue current care at this time until a decision is made about hospice. Will not proceed with any further lab draws at this time. Subjective Date/time seen: 01/18/21 12:59 Interval history: 65yo female with metastatic cervical CA here for fever and AMS. Assuming care. Chart reviewed. Pain is controlled currently (RN states later patient has been had increasing pain). Patient denies shortness of breath or cough. She has eaten better today. Exam Narrative: Exam Narrative: Tm 100.4 97.8 99/55 93 16 98% ra Gen - NARD lying almost flat in bed Chest -inspiratory crackles appreciated in the flanks. CV - RRR S1/S2 Abd -soft. Positive bowel sounds. Suprapubic tenderness. Back -right nephrostomy tube in place with cloudy yellow urine in the bag. Ext - No pedal edema Psych - Nml mood and affect. Alert and appropriate Skin - Warm and dry Objective Data Vital Signs Vital Signs: Vital Signs - 24 hr 01/17/21 13:09 01/17/21 13:43 01/17/21 13:45 Temperature 97.8 F Pulse Rate 86 83 81 Respiratory Rate 16 20 19 Blood Pressure 119/90 Pulse Oximetry 97 98 01/17/21 13:46 01/17/21 14:00 01/17/21 14:01 Temperature 98.0 F Pulse Rate 83 82 81 Respiratory Rate 23 H 18 20 Blood Pressure 112/75 100/70 Pulse Oximetry 98 01/17/21 14:15 01/17/21 14:16 01/17/21 14:30 Temperature Pulse Rate 85 82 83 Respiratory Rate 20 21 H 23 H Blood Pressure 107/53 L Pulse Oximetry 99 01/17/21 14:53 01/17/21 15:00 01/17/21 15:15 Temperature Pulse Rate 87 85 87 Respiratory Rate 17 Blood Pressure Pulse Oximetry 01/17/21 15:30 01/17/21 15:45 01/17/21 16:00 Temperature Pulse Rate 85 86 87 Respiratory Rate 17 16 19 Blood Pressure 132/77 Pulse Oximetry 01/17/21 16:05 01/17/21 16:18 01/17/21 16:32 Temperature Pulse Rate 86 87 88 Respiratory Rate 15 18 13 Blood Pressure 122/50 L Pulse Oximetry
--- NOTE | 2021-01-18 13:03 | PC.NURSE ---
[address] Yu about patients heparin drip being on hold from shift mgr. Gigi gave orders to restart heparin drip after PTT was obtained.
[2021-01-18 13:23] LABS: Specific Grav Ur 1.031 (1.001-1.035)
--- NOTE | 2021-01-18 13:31 | WPDURCON ---
Assessment and Plan Assessment and plan (1) Pyelonephritis: Code(s): N12 - Tubulo-interstitial nephritis, not specified as acute or chronic Status: Acute Assessment and Plan: Continue IV antibiotics, tailor to culture results, patient to go home with hospice. NO further urological care at this time. (2) Primary cervical cancer with metastasis to other site: Code(s): C53.9 - Malignant neoplasm of cervix uteri, unspecified Status: Acute (3) Acute renal insufficiency: Code(s): N28.9 - Disorder of kidney and ureter, unspecified Status: Acute Assessment and Plan: Creatinine at her baseline, only to change nephrostomy tube if it stops draining. Otherwise will treat infection and support palliative care at this time. Urology Consult Note HPI Date Seen: 01/18/21 Requesting Physician: Rafa Yu MD Primary Care Provider: Ben Ceron MD Consult Narrative Narrative: Shirley Samaniego is a 65 year old female who presented to the ER yesterday from home with fever, chills and abdominal pain. She is known to our practice and was seen during her most recent hospitalization here at [facility] approximately a month ago for management of her nephrostomy tube that was placed secondary to metastatic cancer causing her right distal ureter to become obstructed. She has had multiple UTI's recently, her most recent culture grew pseudomonas and enterococcus on 12/18/2020, which has delayed her chemo treatments with Dr. Jernigan. Unfortunately, this has caused worsening metastasis of the cancer. Her CT scan upon arrival yesterday shows an Ill-defined mass of the cervix invading into the right pelvis causing obstruction of the distal right ureter. Enlarged and ill-defined right kidney with urothelial enhancement of the renal pelvis and ureter, consistent with pyelonephritis and possibly multiple renal abscesses. Right percutaneous nephrostomy within the cortex of the right kidney lower pole. Interval worsening of metastatic disease in the chest, abdomen, and pelvis as detailed above. Pulmonary embolism in the right lower lobe. She is anemic and has an H&H of 7.0 and 21.5, she is recieveing a transfusion at this time. Her creatinine remains at her baseline 1.50, which varies from 1.10-1.50. Her UA is suggestive of a UTI, urine and blood cultures are pending. Her nephrostomy tube is draining despite her right pyelonephritis and possible renal abscess. She has had a discussion with Dr. Jernigan today and she and her family have decided to go on hospice with only palliative care at this time. She refuses any treatment other than antibiotic therapy and blood transfusions for now and will go home with hospice later this week. Review of Systems Cardiovascular: Cardiovascular: Denies chest pain Respiratory: Respiratory: Reports no additional respiratory complaints Gastrointestinal: Gastrointestinal: Reports abdominal pain, Reports nausea and Denies vomiting Genitourinary: Genitourinary: Denies hematuria, Denies dysuria and Denies urinary urgency PMFSH Past Medical History Medical History Anxiety Cervical cancer CKD (chronic kidney disease) stage 4, GFR 15-29 ml/min Essential (primary) hypertension Hx of pulmonary embolus Hyperlipidemia Lung metastases Type 2 diabetes mellitus without complications Surgical History Surgical History History of left knee replacement 2018 History of total right knee replacement 2017 Hx of basal cell carcinoma excision Hx of carpal tunnel repair Hx of colonoscopy Normal in 2011 Hx of rotator cuff surgery Family History Family History Mother Family history of lung cancer Sibling Patient's sister is Social History Social History (Reviewed 01/18/21 @ 13:38 by Willy
[2021-01-18] MEDS: CENTRAL LINE FLUSH 10 ML IV PUSH (15:04)
[2021-01-18] MEDS: HEPARIN SOD/D5W 100 UNITS/ML 25,000 UNITS/250 ML BAG 16 UNITS IV CONT (15:52)
[2021-01-18] MEDS: MORPHINE SULFATE (*CRX) 2 MG/ML INJ IV PUSH (17:31)
[2021-01-18 18:45] LABS: Partial Thromboplastin Time 195.7 SECONDS (22.3-36.8)
[2021-01-18] MEDS: HEPARIN SOD/D5W 100 UNITS/ML 25,000 UNITS/250 ML BAG 14 UNITS IV CONT (20:12)
[2021-01-19] VITALS: PULSE 89
[2021-01-19 02:22] LABS: Partial Thromboplastin Time 119.9 SECONDS (22.3-36.8)
[2021-01-19 04:00] VITALS: PULSE 74
[2021-01-19 06:00] VITALS: BP 108/57; PULSE 90; RESP 16; TEMP 36.8; O2SAT 93
[2021-01-19 08:00] VITALS: PULSE 85; PULSE 90; RESP 16; O2SAT 93
[2021-01-19 09:50] LABS: Partial Thromboplastin Time 87.7 SECONDS (22.3-36.8)
[2021-01-19] MEDS: MORPHINE SULFATE (*CRX) 2 MG/ML INJ IV PUSH ×2 (11:07→18:27)
[2021-01-19] MEDS: SODIUM CHLORIDE 0.9% IV 1,000 ML 100 ML IV CONT (11:17)
[2021-01-19] MEDS: HEPARIN SOD/D5W 100 UNITS/ML 25,000 UNITS/250 ML BAG 13 UNITS IV CONT (11:53)
--- NOTE | 2021-01-19 13:47 | PM.IMPN ---
Progress Note: A&P Assessment and Plan (1) Sepsis: Code(s): A41.9 - Sepsis, unspecified organism Status: Acute (2) Primary cervical cancer with metastasis to other site: Code(s): C53.9 - Malignant neoplasm of cervix uteri, unspecified Status: Acute (3) Pulmonary embolism: Code(s): I26.99 - Other pulmonary embolism without acute cor pulmonale Status: Acute (4) CKD (chronic kidney disease) stage 4, GFR 15-29 ml/min: Code(s): N18.4 - Chronic kidney disease, stage 4 (severe) Status: Acute (5) Type 2 diabetes mellitus without complications: Qualifiers: Diabetes mellitus terminal makeup operator insulin use: without assisted use Qualified Code(s): E11.9 - Type 2 diabetes mellitus without complications Code(s): E11.9 - Type 2 diabetes mellitus without complications Status: Acute (6) Nonalcoholic steatohepatitis (SIDHU): Code(s): K75.81 - Nonalcoholic steatohepatitis (SIDHU) Status: Acute (7) Encephalopathy acute: Code(s): G93.40 - Encephalopathy, unspecified Status: Acute (8) Pyelonephritis: Code(s): N12 - Tubulo-interstitial nephritis, not specified as acute or chronic Status: Acute (9) Anemia: Code(s): D64.9 - Anemia, unspecified Status: Acute Additional Plan 01/18/21: Patient has been admitted to [address] [place] [address]. She has a history of Enterococcus and Pseudomonas pyelonephritis and as such Zosyn and vancomycin were started. Heparin drip started for her PE. Given her CKD, we will change her to cefepime. Spoke with Radiology today who was concerned that the nephrostomy tube was not well position. Given that she is stable, will hold off on having this replaced today. Spoke with her and her about hospice. Information was provided by Case Management. Later, I spoke with the oncologist who stated that he agreed with hospice and has already spoke with the patient about this today. If patient and family are in agreement, will make plans for discharge home with hospice care. Continue current care at this time until a decision is made about hospice. Will not proceed with any further lab draws at this time. 01/19/21: Patient remaining stable. Remains on Heparin drip for PE. BCx NGTD. UCx growing acinetobacter sensitive to Cefepime. No labs drawn today. Will stop tele since no rhythm issues. Stop Vanco. Hospice being considered. not available at this time to discuss. Will stop IV fluids. Resume paroxetine. Subjective Date/time seen: 01/19/21 13:47 Interval history: 65yo female with metastatic cervical CA here for fever and AMS. Slept well last night. No problems overnight. No CP or SOB. Not eating well. No back pain. Exam Narrative: Exam Narrative: AF 98.3 108/57 90 16 93% ra Gen - NARD Chest -clear anteriorly, nml RR. Left upper chest port accessed CV - RRR S1/S2; Tele showing no signifincat dysrhythmias Abd -soft. Minimal diffuse tenderness Back -right nephrostomy tube in place with cloudy yellow urine in the bag. Ext - No pedal edema Psych - Nml mood and affect. Skin - Warm and dry Objective Data Vital Signs Vital Signs: Vital Signs - 24 hr 01/18/21 14:23 01/18/21 15:05 01/18/21 16:00 Temperature 97.4 F L 97.4 F L Pulse Rate 92 92 94 Respiratory Rate 16 16 Blood Pressure 95/58 L 113/60 Pulse Oximetry 99 98 01/18/21 21:27 01/19/21 00:00 01/19/21 04:00 Temperature 97.4 F L Pulse Rate 93 89 74 Respiratory Rate 18 Blood Pressure 94/50 L Pulse Oximetry 97 01/19/21 06:00 01/19/21 08:00 Temperature 98.3 F Pulse Rate 90 90 Respiratory Rate 16 16 Blood Pressure 108/57 L Pulse Oximetry 93 93 Intake/Output Intake/Output: Intake & Output 01/16/21 01/17/21 01/18/21 01/19/21 23:59 23:59 23:59 23:59 Intake Total 1170 4670 1450 Output Total 50 275 150 Balance 1120 4395 1300 Meds/Results Medications: Active Medications Generic
[2021-01-19 14:00] VITALS: BP 116/69; PULSE 94; RESP 16; TEMP 37.2; O2SAT 97
[2021-01-19 15:35] LABS: Partial Thromboplastin Time 107.8 SECONDS (22.3-36.8)
[2021-01-19] MEDS: CENTRAL LINE FLUSH 10 ML IV PUSH (16:13)
[2021-01-19] MEDS: PARoxetine 10 MG TABLET 30 MG PO (16:14)
[2021-01-19] MEDS: APIXABAN 5 MG TABLET 10 MG PO (20:50)
[2021-01-19 21:56] VITALS: BP 118/60; PULSE 108; RESP 16; TEMP 37.2; O2SAT 94
[2021-01-20 06:00] VITALS: BP 143/80; PULSE 95; RESP 20; TEMP 36.4; O2SAT 93
[2021-01-20] MEDS: PARoxetine 10 MG TABLET 30 MG PO (08:05)
[2021-01-20] MEDS: CENTRAL LINE FLUSH 10 ML IV PUSH ×2 (08:05→13:45)
[2021-01-20] MEDS: APIXABAN 5 MG TABLET 10 MG PO (08:29)
[2021-01-20] MEDS: HYDROcodone/acetaminophen (*CRX) 7.5-325 MG TABLET 1 TAB PO (10:33)
[2021-01-20 14:00] VITALS: BP 133/84; PULSE 90; RESP 16; TEMP 36.4; O2SAT 95
--- NOTE | 2021-01-20 14:18 | PM.DS ---
DS: Admitting Diagnosis Admitting Diagnosis Admitting Diagnosis: Fevers, altered mental status DS: Discharge Diagnosis Discharge Diagnosis (1) Sepsis: Code(s): A41.9 - Sepsis, unspecified organism Status: Acute (2) Pyelonephritis: Code(s): N12 - Tubulo-interstitial nephritis, not specified as acute or chronic Status: Acute (3) Encephalopathy acute: Code(s): G93.40 - Encephalopathy, unspecified Status: Acute (4) Pulmonary embolism: Code(s): I26.99 - Other pulmonary embolism without acute cor pulmonale Status: Acute (5) Primary cervical cancer with metastasis to other site: Code(s): C53.9 - Malignant neoplasm of cervix uteri, unspecified Status: Acute (6) CKD (chronic kidney disease) stage 4, GFR 15-29 ml/min: Code(s): N18.4 - Chronic kidney disease, stage 4 (severe) Status: Acute (7) Type 2 diabetes mellitus without complications: Qualifiers: Diabetes mellitus [facility] insulin use: without local company intermodal truck driver use Qualified Code(s): E11.9 - Type 2 diabetes mellitus without complications Code(s): E11.9 - Type 2 diabetes mellitus without complications Status: Acute (8) Anemia: Code(s): D64.9 - Anemia, unspecified Status: Acute (9) Nonalcoholic steatohepatitis (SIDHU): Code(s): K75.81 - Nonalcoholic steatohepatitis (SIDHU) Status: Acute DS: Summary Hospital Course Reason for hospitalization: 65yo female with metastatic cervical cancer here for fever and altered mental status. Please see H&P for details. Hospital Course: 01/17/21: Patient presented to the ED with complaints of fever and altered mental status. UA from the right nephrostomy tube consistent with UTI. CT showin. ll-defined mass of the cervix invading into the right pelvis causing obstruction of the distal right ureter. 2. Enlarged and ill-defined right kidney with urothelial enhancement of the renal pelvis and ureter, consistent with pyelonephritis and possibly multiple renal abscesses. Right percutaneous nephrostomy within the cortex of the right kidney lower pole. 3. Interval worsening of metastatic disease in the chest, abdomen, and pelvis as detailed above. 4. Pulmonary embolism in the right lower lobe. 5. New fracture of the L3 vertebral body, likely pathologic. Patient was started on IV antibiotics and Heparin drip. She was admitted to [address] [place] [address]. 01/18/21: She has a history of Enterococcus and Pseudomonas pyelonephritis and as such Zosyn and vancomycin were started. Heparin drip was continued her PE. Given her CKD, we changed her to cefepime. Spoke with Radiology who was concerned that the nephrostomy tube was not well position. Given that she was stable, we held off on having this replaced and spoke with Urology. Urolgu was consulted and agreed that we should hold off on replacing the nephrostomy tube now but would if she has no urine output. Nephrostomy tube continued to have output during her hsopital course. Spoke with her and her about hospice. Information was provided by Case Management. Later, I spoke with the oncologist who stated that he agreed with hospice and has already spoke with the patient about this. 01/19/21: Patient remained stable. Remained on Heparin drip for PE. BCx NGTD. UCx growing acinetobacter sensitive to Cefepime. Vancomycin stopped. Hospice being considered by family. Hospice was agreed to later in the day by patient and family. They wished to continue anticoagulation so Heparin changed over to Eliquis. They also wanted to complete a course of antibiotics. 01/20/21: Arrangements have been completed and patient will admitted to hospice once she returns home. Patient hemodynamically stable and felt safe for discharge home. Status at Discharge Cognitive/behavioral status at discharge: stable Time Spent with Patient Time attestation: Total time spent providing and/or coordinating discharge ser
[2021-01-20] MEDS: HEPARIN SOD FLUSH 500 UNITS/5 ML SYRINGE IV PUSH (15:20)
== END 2021-01-20 15:50 | disposition hospice, home (50) | DRG 871 ==
LOC: ANHED 16:20 → ANH3MEDSUR 16:54
PROVIDERS: Internal Medicine; Physician Assistant; Admitting Provider Internal Medicine; Emergency Provider Emergency Medicine; PCP Internal Medicine; Visit Provider Internal Medicine
DX: A41.9 Sepsis, unspecified organism (principal); I26.99 Other pulmonary embolism without acute cor pulmonale; D61.810 Antineoplastic chemotherapy induced pancytopenia; N18.4 Chronic kidney disease, stage 4 (severe); G93.40 Encephalopathy, unspecified; N12 Tubulo-interstitial nephritis, not specified as acute or chronic; C79.89 Secondary malignant neoplasm of other specified sites; C78.00 Secondary malignant neoplasm of unspecified lung; C53.9 Malignant neoplasm of cervix uteri, unspecified; E11.22 Type 2 diabetes mellitus with diabetic chronic kidney disease; I12.9 Hypertensive chronic kidney disease with stage 1 through stage 4 chronic kidney disease, or unspecified chronic kidney disease; E78.5 Hyperlipidemia, unspecified; T45.1X5A Adverse effect of antineoplastic and immunosuppressive drugs, initial encounter; N28.9 Disorder of kidney and ureter, unspecified; K75.81 Nonalcoholic steatohepatitis (NASH); Z66 Do not resuscitate; Z96.0 Presence of urogenital implants; Z79.899 Other long term (current) drug therapy
CPT/HCPCS: 36415; 36430; 70450; 74177; 80048; 80053; 81001; 82948; 83605; 85014; 85018; 85025; 85610; 85730; 86850; 86900; 86901; 86923; 87040; 87077; 87086; 87088; 87186; 96361; 96365; 96366; 96367; 96368; 96375; 96376; 99285; A9270; G0378; J0692; J1644; J2270; J2405; J2543; J3370; J7030; J7050; P9016; Q9967

== ENCOUNTER 2021-01-31 18:36 | Observation (INO) | payer OTHER, SELFPAY ==
--- NOTE | ~2021-01-31 | XR_ITS ---
EXAMINATION: XR nephrostogram DATE: 02/01/2021 13:57 INDICATION: Right nephrostomy tube dysfunction. TECHNIQUE: I injected the existing percutaneous nephrostomy tube with water-soluble contrast and perf ormed fluoroscopy. Fluoroscopy exposure time was 0.3 minutes. The number of images was 2. COMPARISON: CT abdomen and pelvis 01/17/2021 FINDINGS: Images demonstrate that the right nephrostomy tube is not in the kidney. After removal of t he bandage, the tube is noted to be completely outside of the skin. I attempted to inject the skin si te with contrast to find the tract, but was unsuccessful. IMPRESSION: 1. Dislodged right percutaneous nephrostomy tube. A new skin insertion is required, and can be perfor med with CT. The Eliquis should ideally be held for 72 hours prior to the procedure. Reviewed, dictated and finalized at location A. IMPRESSION: 1. Dislodged right percutaneous nephrostomy tube. A new skin insertion is requi red, and can be performed with CT. The Eliquis should ideally be held for 72 ho urs prior to the procedure.
[2021-01-31 18:57] VITALS: BP 98/77; PULSE 58; RESP 16; TEMP 36.4; O2SAT 98
[2021-01-31 21:25] VITALS: BP 98/71; PULSE 85; RESP 19; O2SAT 100
[2021-01-31 22:54] LABS: Basophils Absolute Auto 0.1 K/mm3 (0.0-0.1); Basophils Percent Auto 0.9 % (0.2-1.2); Eosinophils Absolute Auto 0.1 K/mm3 (0-0.3); Eosinophils Percent Auto 1.3 % (0-4.4); Hematocrit 30.8 % (37.0-47.0); Hemoglobin 9.8 g/dL (12.0-15.0); Immature Granulocyte Absolute 0.17 K/mm3 (0.00-0.031); Immature Granulocyte Percent A 2.2 % (0-0.5); Lymphocytes Absolute Auto 0.79 K/mm3 (0.9-3.2); Lymphocytes Percent Auto 10.2 % (18.3-44.2); Mean Corpuscular HGB Conc 31.8 g/dl (32-36); Mean Corpuscular Hemoglobin 28.8 pg (26-34); Mean Corpuscular Volume 90.6 fl (80-100); Mean Platelet Volume 8.5 fl (7.4-10.4); Monocytes Absolute Auto 0.5 K/mm3 (0.1-0.6); Monocytes Percent Auto 6.8 % (2.6-8.5); Neutrophils Absolute Auto 6.1 K/mm3 (1.3-6.7); Neutrophils Percent Auto 78.6 % (45.5-73.1); Platelet Count Result 232 k/mm3 (150-375); Red Cell Distribution Width 15.7 % (11.5-14.5); White Blood Count 7.8 K/mm3 (4.5-10.0)
[2021-01-31 23:16] LABS: Alanine Aminotransferase 13 U/L (4-35); Albumin Level 3.4 g/dL (3.5-5.1); Alkaline Phosphatase 182 U/L (38-126); Anion Gap 13 mmol/L (8-16); Aspartate Amino Transferase 44 U/L (14-36); Bilirubin,Total 0.7 mg/dL (0.2-1.3); Blood Urea Nitrogen 16 mg/dL (7-17); Calcium 9.5 mg/dL (8.4-10.2); Carbon Dioxide 23 mmol/L (22-30); Chloride 100 mmol/L (98-107); Estimated CRCL calculation 39 ml/min; Estimated Glomerular Filt Rate 35; Glucose 145 mg/dL (65-105); Potassium 4.3 mmol/L (3.4-5.0); Sodium 136 mmol/L (137-145)
--- NOTE | 2021-01-31 23:39 | ED.GENADULT ---
HPI - General Adult General Chief complaint: Urogenital-Female Stated complaint: catheter came out Time Seen by Provider: 01/31/21 22:24 Source: patient and family History of Present Illness HPI narrative: Patient is a 65 y/o female sent in by hospice for dislodged nephrostomy tube. states that it they noticed it was out around 2:00 PM. Patient is not sure what happened. She appears somewhat confused. states that patient gets confused sometimes due to pain medication. She is in hospice for metastatic cervical cancer. states that they contacted hospice and was sent here for nephrostomy tube replacement. Related Data Home Medications Medication Instructions Recorded Confirmed apixaban [Eliquis] 5 mg PO DAILY 02/01/21 02/01/21 aspirin 81 mg PO DAILY 02/01/21 02/01/21 lorazepam 0.25 mg PO PRN PRN 02/01/21 02/01/21 losartan 10 mg pe BYMOUTH DAILY 02/01/21 02/01/21 metformin 500 mg PO DAILY 02/01/21 02/01/21 morphine concentrate 0.25 mg PO DIRECTED PRN 02/01/21 02/01/21 Allergies Allergy/AdvReac Type Severity Reaction Status Date / Time thimerosal Allergy Intermediate urticaria Verified 01/17/21 17:51 Review of Systems Review of Systems: ROS unobtainable: Yes unobtainable due to mental status PMFSH Past Medical History Medical History Anxiety Cervical cancer CKD (chronic kidney disease) stage 4, GFR 15-29 ml/min Essential (primary) hypertension Hx of pulmonary embolus Hyperlipidemia Lung metastases Type 2 diabetes mellitus without complications Surgical History Surgical History History of left knee replacement 2018 History of total right knee replacement 2017 Hx of basal cell carcinoma excision Hx of carpal tunnel repair Hx of colonoscopy Normal in 2011 Hx of rotator cuff surgery Family History Family History Mother Family history of lung cancer Sibling Patient's sister is Social History Social History (Updated 02/01/21 @ 08:03 by Cody Yu MD) Social History: She lives at home with her . Lifelong nonsmoker. She used to drink 3 alcoholic drinks per month. No drug use. They have a dog at home. She is a DNR and on hospice. Her would be the individual would make medical decisions for her if she is not able. Smoking status: Unknown if ever smoked Second hand tobacco smoke exposure: No Alcohol intake: unknown Substance use: unknown Substance use type: does not use Gender identity (if verbalized by the patient): Female Spiritual care concerns: No Exam Const: General: no acute distress and ill appearing Orientation/consciousness: oriented to person and confusion HENMT: Head: normocephalic Ears: external ears normal General nose exam: Normal external nose present Eyes: General: appearance normal, both eyes and all related structures Conjunctivae: conjunctivae normal Neck: Neck: normal visual inspection and full ROM Chest: Chest palpation & inspection: normal inspection of the chest and no tenderness Resp: Effort & Inspection: normal respiratory effort Auscultation: clear to auscultation bilaterally Cardio: Rate: regular rate Rhythm: regular rhythm GI: GI Palp: No abdominal tenderness and Yes Soft to palpation Back/Spine/Pelvis: Back: other (small open from nephrostomy tube is noted. Tube is completely dislodged) Skin: General skin exam: normal color and turgor normal Neuro: General: oriented to person and confusion Cognition (Neuro): normal cognition Extrem: General: normal to inspection, full ROM and no pedal edema Psych: Appearance: grossly normal Mental Status: mental status grossly normal Affect: normal affect Course Reevaluation(s) Reevaluation #1: Hospice nurse called, stating that patient be likely be dischar
[2021-01-31 23:42] VITALS: BP 114/79; PULSE 93; RESP 16; O2SAT 96
[2021-02-01 00:15] LABS: Add Urine Microscopic? YES; Appearance Urine Turbid (Clear); Bacteria Urine Trace /hpf; Bilirubin Urine Negative (Negative); Blood Urine 3+ (Negative); Color Urine Yellow (Yellow); Glucose Urine UA Negative (Negative); Ketones Urine Trace mg/dL (Negative); Leukocyte Esterase Ur 2+ LEU/UL (Negative); Mucus Urine Few /lpf; Nitrate Urine Negative (Negative); Protein Urine 3+ mg/dL (Negative); RBC Urine >75 /hpf (0-2); Specific Grav Ur 1.022 (1.001-1.035); Squamous Epithelial Cell Urine Moderate /hpf (Few); Urobilinogen Urine Negative mg/dL (<2.0); WBC Clumps Urine Present /HPF; WBC Urine >75 /hpf
[2021-02-01 02:00] VITALS: BP 118/74; PULSE 115; RESP 21; O2SAT 95
[2021-02-01] MEDS: CIPROFLOXACIN 500 MG TAB PO ×3 (02:10→20:28)
--- NOTE | 2021-02-01 03:53 | ADMGEN ---
This patient, Shirley Samaniego, was admitted to [facility] Surg Room 324-01. Patient/family oriented to hospital policies and general routines including ID bracelet, bed and alarms, visiting hours, pain management, procedures, bathroom and other care routines, personal items, smoking policy, room service/diet, and visiting hours. Information on how to activate the Rapid Response Team has been discussed. Patient/Family are encouraged to report perceived risks to care and to ask questions if they do not understand what they are told or what they should do.
[2021-02-01 04:00] VITALS: BP 98/55; PULSE 109; RESP 20; TEMP 37.9; O2SAT 90
[2021-02-01 04:11] VITALS: BMI 30.7
[2021-02-01 07:40] LABS: Glucose Point of Care 125 mg/dl (65-105)
--- NOTE | 2021-02-01 08:01 | PM.IMHP ---
H&P: HPI History of Present Illness Date/Time: PATIENT PLACED UNDER OBSERVATION 02/01/21 08:01 Chief Complaint: Nephrostomy tube dislodged Narrative: 65yo female with end-stage metastatic cervical cancer on hospice was brought to emergency room because of dislodged right nephrostomy tube. Patient is alert but confused and unable to provide history. Majority of the history is obtained from the chart and from the by phone. She has had multiple hospitalizations with her most recent discharge being on January 20. She was initially hospitalized at that time for sepsis and found to have Enterococcus and Pseudomonas pyelonephritis. Oncologist agree that hospice was appropriate. Family and patient decided to proceed with hospice care. Since being at home, patient has been eating very little. Patient has had very little pain to speak of according to the but she did take morphine about 4 days ago but this caused bad dreams. There has been no fever or chills. Yesterday, patient was noted be more confused and slightly diaphoretic. Her helped her roll to her side at which point the noted that the dressing around the right nephrostomy tube was wet and that the tube appears to have been dislodged. He called hospice who ultimately recommended that they come to the hospital to have this replaced. In the ED, blood pressure was 98/77. White count and platelet count were normal. Hemoglobin was 9.8. Creatinine 1.5. UA was consistent with UTI. Patient was started on ciprofloxacin and admitted for further care. Urine cultures pending. Ultrasound guided percutaneous nephrostomy to order was placed. Review of Systems Review of Systems: ROS unobtainable: Yes unobtainable due to mental status PMFSH Past Medical History Medical History Anxiety Cervical cancer CKD (chronic kidney disease) stage 4, GFR 15-29 ml/min Essential (primary) hypertension Hx of pulmonary embolus Hyperlipidemia Lung metastases Type 2 diabetes mellitus without complications Surgical History Surgical History History of left knee replacement 2018 History of total right knee replacement 2017 Hx of basal cell carcinoma excision Hx of carpal tunnel repair Hx of colonoscopy Normal in 2011 Hx of rotator cuff surgery Family History Family History Mother Family history of lung cancer Sibling Patient's sister is Social History Social History (Updated 02/01/21 @ 08:03 by Cody Yu MD) Social History: She lives at home with her . Lifelong nonsmoker. She used to drink 3 alcoholic drinks per month. No drug use. They have a dog at home. She is a DNR and on hospice. Her would be the individual would make medical decisions for her if she is not able. Smoking status: Unknown if ever smoked Second hand tobacco smoke exposure: No Alcohol intake: unknown Substance use: unknown Substance use type: does not use Gender identity (if verbalized by the patient): Female Spiritual care concerns: No Meds Home Medications and Allergies Home Medications Medication Instructions Recorded Confirmed Type acetaminophen [Mapap 650 mg PO Q4H PRN #0 tablet 12/24/20 02/01/21 Rx (acetaminophen)] hydrocodone-acetaminophen 1 tablet PO Q6H PRN #30 tablet 01/20/21 02/01/21 Rx ciprofloxacin HCl 500 mg PO Q12HR #12 tablet 02/01/21 Rx lorazepam 0.25 mg PO Q4H PRN #0 tablet 02/01/21 02/01/21 Rx morphine concentrate 5 mg PO Q4H PRN #0 ml 02/01/21 02/01/21 Rx Allergies Allergy/AdvReac Type Severity Reaction Status Date / Time thimerosal Allergy Intermediate urticaria Verified 01/17/21 17:51 Vital Signs Vital Signs - 24 hr 01/31/21 18:57 01/31/21 21:25 01/31/21 23:42 Temperature 97.6 F Pulse R
[2021-02-01] MEDS: ASPIRIN 81 MG CHEWABLE TABLET PO (09:25)
[2021-02-01] MEDS: APIXABAN 5 MG TABLET PO (09:25)
[2021-02-01] MEDS: HYDROcodone/acetaminophen (*CRX) 7.5-325 MG TABLET 1 TAB PO ×2 (11:15→21:53)
[2021-02-01] MEDS: SODIUM CHLORIDE 0.9% IV 1,000 ML 100 ML IV CONT (11:18)
[2021-02-01 11:35] LABS: INR 1.6; Prothrombin Time 19.4 Seconds (11.1-14.7)
[2021-02-01 11:36] LABS: Partial Thromboplastin Time 42.2 SECONDS (22.3-36.8)
[2021-02-01 14:00] VITALS: BP 78/55; PULSE 76; RESP 18; TEMP 35.6; O2SAT 98
[2021-02-01] MEDS: CENTRAL LINE FLUSH 10 ML IV PUSH ×2 (14:27→20:28)
[2021-02-01] MEDS: SODIUM CHLORIDE 0.9% IV 500 ML 999 ML IV CONT (16:18)
[2021-02-01] MEDS: NEOMYCIN/POLYMYXIN/BACITRACIN OINTMENT PACKET 1 PACKET (18:00)
--- NOTE | 2021-02-01 18:34 | PM.DS ---
DS: Admitting Diagnosis Admitting Diagnosis Admitting Diagnosis: Dislodged nephrostomy tube DS: Discharge Diagnosis Discharge Diagnosis (1) Sepsis: Code(s): A41.9 - Sepsis, unspecified organism Status: Acute (2) Malfunction of nephrostomy tube: Code(s): T83.098A - Other mechanical complication of other urinary catheter, initial encounter Status: Acute (3) Complicated UTI (urinary tract infection): Code(s): N39.0 - Urinary tract infection, site not specified Status: Acute (4) Encephalopathy acute: Code(s): G93.40 - Encephalopathy, unspecified Status: Acute (5) Primary cervical cancer with metastasis to other site: Code(s): C53.9 - Malignant neoplasm of cervix uteri, unspecified Status: Acute DS: Summary Hospital Course Reason for hospitalization: 65yo female with end-stage metastatic cervical cancer on hospice was brought to emergency room because of dislodged right nephrostomy tube. Please see H&P for details Hospital Course: Patient with UTI and evidence of sepsis given her diaphoresis, fever and tachycardia. She has been started on ciprofloxacin. Blood pressure soft but this could be related to dehydration if she has poor oral intake. IV fluids started. Discussed with about goals of care. He would like the patient to be well enough to be returned home. The plan was to have right nephrostomy tube replaced but she was on Eliquis. The nephrostomy tube was all the way out so she would require a new needle stick so radiology recommended waiting for 72 hours since she is on Eliquis. Discussed with family multiple times throughout the day. They wished for the patietn to be discharged home. Spoke with Hospice as well and they were updated. Patient's SBP did drop to 78 but improved to 99 with IV fluids. She was able to be discharged. Will arrange for nephrostomy tube placement on Sunday but defer to hospice and family to see if this coincide with goals of care. Time Spent with Patient Time attestation: Total time spent providing and/or coordinating discharge services: 50 minutes Time spent: Greater than 30 minutes Exam Narrative: Exam Narrative: 100.2 98/55 109 20 90% ra Glucose 125 Gen - well-nourished, well-developed female in no acute respiratory distress who is nontoxic-appearing lying semi recumbent in bed HEENT - normocephalic. Atraumatic. Pupils equal round and reactive. Extraocular motions intact. Sclera clear and anicteric. Nares patent. Tachy mucous membranes. Tongue was midline. Palate jesi symmetrically. No facial asymmetry. Neck - neck was supple. No dominant adenopathy Chest - few bibasilar inspiratory crackles. No wheezes or crackles. Breast exam was deferred. CV - heart was irregularly irregular. S1-S2. Abd - abdomen was soft. Nontender. Nondistended. Positive bowel sounds. No organomegaly or masses. Back - right midback dressing with nephrostomy tube extending out from under the dressing with no urine in the bag - Sunshine secured with heraclio colored urine in the bag Ext - no clubbing, cyanosis or edema. 2+ DP pulses bilaterally. Neuro - patient is alert but confused. Strength is 4+/5 in both upper and lower extremities without focal weakness. Skin - diaphoretic DS: Data Data Completed and Pending Labs on day of discharge: Labs from last 24 hours 02/01/21 02/01/21 02/01/21 10:25 10:25 07:37 WBC RBC Hgb Hct MCV MCH MCHC RDW Plt Count MPV Immature Gran % (Auto) Neut % (Auto) Lymph % (Auto) Frio % (Auto) Eos % (Auto) Baso % (Auto) Lymph # (Auto) Frio # (Auto) Eos # (Auto) Baso # (Auto) Abs Immat Gran (auto) Absolute Neuts (auto) Absolute Nucleated RBC Nucleated RBC % PT 19.4 H INR 1.6 APTT 42.2 H Cancelled Sodium Potassium Chloride Carbon Dioxide Anion Gap BUN Creatinine Estim Creat Clear Calc
--- NOTE | 2021-02-01 23:03 | PC.NURSE ---
pt discharged home via private vehicle w spouse and brother. pt tolerated well ambulating to w/c. denied dizziness and was steady on feet. Per Hospitalist, ok to leave via private vehicle vs ambulance. Ambulance pickup was delayed until 0100. all belongings taken, and all questions answered. L side port de-accessed.
[2021-02-02 06:59] VITALS: BP 99/53
--- NOTE | 2021-02-07 13:32 | PC.NURSE ---
Urine cx resistant to Cipro. Dr. Gigi carrillo. Spoke to Shirley at [facility] regarding urine cx. Results faxed to [facility].
== END 2021-02-01 23:00 | disposition hospice, home (50) ==
LOC: ANHED 22:37 → ANH3MEDSUR 02-01 03:22
PROVIDERS: Admitting Provider Internal Medicine; Emergency Provider Emergency Medicine; PCP Internal Medicine; Visit Provider Internal Medicine
DX: T83.098A Other mechanical complication of other urinary catheter, initial encounter (principal); C53.9 Malignant neoplasm of cervix uteri, unspecified; N39.0 Urinary tract infection, site not specified; I12.9 Hypertensive chronic kidney disease with stage 1 through stage 4 chronic kidney disease, or unspecified chronic kidney disease; E11.22 Type 2 diabetes mellitus with diabetic chronic kidney disease; N18.4 Chronic kidney disease, stage 4 (severe); G93.40 Encephalopathy, unspecified; R50.9 Fever, unspecified; R00.0 Tachycardia, unspecified; R61 Generalized hyperhidrosis; Z79.01 Long term (current) use of anticoagulants; Z79.4 Long term (current) use of insulin; Z86.711 Personal history of pulmonary embolism
CPT/HCPCS: 36415; 50431; 80053; 81001; 82948; 85025; 85610; 85730; 87077; 87086; 87088; 87186; 96360; 96361; 99285; A9270; G0378; J7030

== ENCOUNTER 2021-02-04 01:36 | Outpatient (CLI) | payer OTHER, SELFPAY ==
[2021-02-03 10:10] VITALS: BMI 30.9
--- NOTE | 2021-02-03 11:35 | SUR.PHASEII ---
per Dr Juliet abeliving Covid testing pre procedure
[2021-02-04] VITALS (11 sets, daily range): BP systolic 107–133; BP diastolic 67–87; PULSE 92–100; RESP 16–20; O2SAT 92–99
--- NOTE | ~2021-02-04 | CT_ITS ---
EXAMINATION: CT guide nephro tube pl RT DATE: 02/04/2021 12:55 INDICATION: Left hydronephrosis. TECHNIQUE: The procedure including the risks, benefits, and alternatives was discussed with the patie nt. Risks discussed included bleeding and infection. The patient understood the risks and benefits an d agreed to proceed. The patient was confirmed to be receiving appropriate antibiotic coverage. The skin overlying the left kidney was prepped and draped in usual sterile fashion. Anesthetic was admin istered with 1% lidocaine subcutaneously. An 18 gauge trochar needle was inserted into the kidney und er CT guidance. The patient described great discomfort in her shoulders and neck during the procedure . The patient was unable to tolerate the procedure further. I removed the needle. A dressing was appl ied. The patient was placed supine. The patient and her and I further discussed the risks and benefits of the procedure. The dose-length product was 682.78 mGy-cm. There were no immediate compli cations. FINDINGS: CT images demonstrate the needle in the left kidney. IMPRESSION: 1. The procedure was terminated after CT-guided needle insertion into the left kidney. 2. The patient was very uncomfortable during the procedure. We discussed that the left kidney would b e more prone to infection and would likely deteriorate further in function while blocked. Given her p oor cancer prognosis, she decided to return to hospice care without a nephrostomy. Reviewed, dictated and finalized at location A. IMPRESSION: 1. The procedure was terminated after CT-guided needle insertion into the left kidney. 2. The patient was very uncomfortable during the procedure. We discussed that t he left kidney would be more prone to infection and would likely deteriorate fu rther in function while blocked. Given her poor cancer prognosis, she decided t o return to hospice care without a nephrostomy.
--- NOTE | 2021-02-04 13:55 | SUR.PHASEII ---
4840 dr aguirre at bedside speaking with rani(spouse) about the procedure
--- NOTE | 2021-02-04 14:26 | SUR.PHASEII ---
1425 gave an update to Mary, hospice nurse.
--- NOTE | 2021-02-04 15:56 | SUR.PHASEII ---
1525 notified hospice central office installer, americo, about current status of pt and ambulance. she is going to contact ambulance service to find out whats holding them up. 1530 hospice central office installer called back with an e.t.a. on the ambulance, should be here about 10 minutes
== END 2021-02-04 16:57 | disposition home or self-care (01) ==
PROVIDERS: Radiology Diagnostic Radiology; PCP Internal Medicine; Visit Provider Internal Medicine
DX: N12 Tubulo-interstitial nephritis, not specified as acute or chronic (principal); Z43.6 Encounter for attention to other artificial openings of urinary tract
CPT/HCPCS: 50432; Q9967